=== PATIENT | male | born 1995 | race Caucasian/White ===

== ENCOUNTER 2023-08-15 13:00 | Inpatient (IN) | payer MEDICAID ==
[~2023-08-15] VITALS: Ht 172.7 cm; Wt 68.3 kg
[2023-08-15 13:48] LABS: Basophils # (auto) 0 10 ^3/uL (0-0.2); Basophils % (auto) 0.4 % (0.0-2.0); Eosinophils # (auto) 0.1 10 ^3/uL (0-0.8); Eosinophils % (auto) 1.6 % (0.0-7.0); Hematocrit 41.1 % (41.0-53.0); Hemoglobin 13.8 g/dL (13.5-17.5); Lymphocytes # (auto) 1.9 10 ^3/uL (0.4-5.4); Lymphocytes % (auto) 26.2 % (10.0-50.0); Mean Corpuscular Hemoglobin 31.5 pg (28.0-32.0); Mean Corpuscular Hgb Conc. 33.5 g/dL (32.0-36.0); Mean Corpuscular Volume 94.1 fL (80.0-100.0); Monocytes # (auto) 0.7 10 ^3/uL (0-1.3); Monocytes % (auto) 9.9 % (0.0-12.0); Neutrophils # (auto) 4.4 10 ^3/uL (1.6-8.6); Neutrophils % (auto) 61.9 % (37.0-80.0); Nucleated Red Blood Cells % 0.1 %; Red Blood Cells 4.37 10^6/uL (4.5-5.90); Red Cell Distribution Width 14.1 % (11.8-14.3); White Blood Cell 7.1 10^3/uL (4.4-10.8)
[2023-08-15 14:31] LABS: Alanine Aminotransferase 56 U/L (7-40); Alkaline Phosphatase 73 U/L (46-116); Anion Gap 6 (5-15); Aspartate Aminotransferase 47 U/L (13-40); BUN/Creatinine Ratio 19.7 (10.0-20.0); Blood Urea Nitrogen 14 mg/dL (9-23); Calcium 8.6 mg/dL (8.5-10.1); Carbon Dioxide 23 mmol/L (20-30); Chloride 111 mmol/L (98-107); Glucose 134 mg/dL (74-106); Sodium 140 mmol/L (136-145)
[2023-08-15 14:32] LABS: Bilirubin, Total 0.6 mg/dL (0.2-1.0)
[2023-08-15] MEDS: SODIUM CHLORIDE 0.9% 1,000 ML IV ONE ×2 (16:00→16:50)
[2023-08-15] MEDS: THIAMINE 100mg/ml INJ (200mg/2ml VIAL) IV ONE (16:01)
[2023-08-15 16:05] VITALS: PULSE 47; RESP 18; O2SAT 97
[2023-08-15 16:26] LABS: Blood Alcohol < 3.0 mg/dL (<10)
[2023-08-15 16:27] LABS: Creatine Kinase IFCC 854 U/L (46-171)
[2023-08-15] MEDS ORDERED: MORPHINE SULFATE INJ 2 MG/ml SYRG IV PRN (16:45)
[2023-08-15] MEDS ORDERED: NITROGLYCERIN 0.4 MG SL TAB SL PRN (16:45)
[2023-08-15] MEDS ORDERED: ACETAMINOPHEN 325 MG TAB PO PRN (16:45)
[2023-08-15 16:55] LABS: Urine Bacteria None Seen /hpf (None Seen)
[2023-08-15 17:04] LABS: Urine Blood Negative /uL (Negative); Urine Clarity Clear (Clear); Urine Color Yellow (Yellow); Urine Protein, UAD TRACE (Negative); Urine Specific Gravity 1.034 (1.001-1.035); Urine Urobilinogen Normal (Negative); Urine WBC <1 /hpf (0 - 3)
[2023-08-15 17:14] LABS: Amphetamine Screen, Urine Pos (NEGATIVE); Barbiturate Scree,Urine Neg (NEGATIVE); Benzodiazephine Screen, Urine Neg (NEGATIVE)
[2023-08-15 17:15] LABS: Cannabinoid Screen, Urine Pos (NEGATIVE); Cocaine Screen, Urine Neg (NEGATIVE); Opiate Scree,Urine Neg (NEGATIVE); Phencyclidine Screen, Urine Neg (NEGATIVE)
[2023-08-15] MEDS: SODIUM CHLORIDE 0.9% 1,000 ML IV SCH (17:30)
[2023-08-15 19:30] VITALS: RESP 16; O2SAT 97
[2023-08-15] MEDS ORDERED: LORazepam 2MG/ML-1ML VIAL IV PRN (19:45)
[2023-08-16 07:57] VITALS: PULSE 48; RESP 14; O2SAT 97
[2023-08-16] MEDS: ENOXAPARIN SOD 40 MG/0.4 ML SYRINGE SC SCH (10:42)
[2023-08-16 15:54] LABS: Basophils # (auto) 0 10 ^3/uL (0-0.2); Basophils % (auto) 0.3 % (0.0-2.0); Eosinophils # (auto) 0 10 ^3/uL (0-0.8); Eosinophils % (auto) 0.2 % (0.0-7.0); Hematocrit 44.2 % (41.0-53.0); Hemoglobin 14.8 g/dL (13.5-17.5); Lymphocytes # (auto) 1.1 10 ^3/uL (0.4-5.4); Lymphocytes % (auto) 17.7 % (10.0-50.0); Mean Corpuscular Hemoglobin 30.9 pg (28.0-32.0); Mean Corpuscular Hgb Conc. 33.5 g/dL (32.0-36.0); Mean Corpuscular Volume 92.1 fL (80.0-100.0); Monocytes # (auto) 0.2 10 ^3/uL (0-1.3); Neutrophils # (auto) 4.8 10 ^3/uL (1.6-8.6); Neutrophils % (auto) 77.8 % (37.0-80.0); Red Cell Distribution Width 14.4 % (11.8-14.3); White Blood Cell 6.2 10^3/uL (4.4-10.8)
[2023-08-16 15:58] LABS: Alanine Aminotransferase 52 U/L (7-40); Albumin 3.6 g/dL (3.2-4.8); Alkaline Phosphatase 78 U/L (46-116); Anion Gap 6 (5-15); Aspartate Aminotransferase 36 U/L (13-40); BUN/Creatinine Ratio 9.6 (10.0-20.0); Bilirubin, Total 1.1 mg/dL (0.2-1.0); Blood Urea Nitrogen 7 mg/dL (9-23); Calcium 8.4 mg/dL (8.5-10.1); Carbon Dioxide 22 mmol/L (20-30); Chloride 110 mmol/L (98-107); Glucose 132 mg/dL (74-106); Potassium 3.8 mmol/L (3.5-5.1); Sodium 138 mmol/L (136-145); Total Protein 5.7 g/dL (5.7-8.2)
[2023-08-16] MEDS: SILVER SULFADIAZINE 1 % TOPICAL CREAM 50GM TOP ONE (15:59)
[2023-08-16 19:25] VITALS: PULSE 43; RESP 14; O2SAT 97
[2023-08-17 05:55] LABS: Basophils # (auto) 0 10 ^3/uL (0-0.2); Basophils % (auto) 0.6 % (0.0-2.0); Eosinophils # (auto) 0.1 10 ^3/uL (0-0.8); Eosinophils % (auto) 1.5 % (0.0-7.0); Hematocrit 43.5 % (41.0-53.0); Hemoglobin 14.9 g/dL (13.5-17.5); Lymphocytes # (auto) 2.1 10 ^3/uL (0.4-5.4); Lymphocytes % (auto) 28.6 % (10.0-50.0); Mean Corpuscular Hemoglobin 31.4 pg (28.0-32.0); Mean Corpuscular Hgb Conc. 34.3 g/dL (32.0-36.0); Mean Corpuscular Volume 91.6 fL (80.0-100.0); Monocytes # (auto) 0.6 10 ^3/uL (0-1.3); Monocytes % (auto) 7.6 % (0.0-12.0); Neutrophils # (auto) 4.6 10 ^3/uL (1.6-8.6); Neutrophils % (auto) 61.7 % (37.0-80.0); Red Blood Cells 4.75 10^6/uL (4.5-5.90); White Blood Cell 7.4 10^3/uL (4.4-10.8)
[2023-08-17 06:15] LABS: Alanine Aminotransferase 43 U/L (7-40); Albumin 3.3 g/dL (3.2-4.8); Alkaline Phosphatase 73 U/L (46-116); Anion Gap 7 (5-15); Aspartate Aminotransferase 22 U/L (13-40); BUN/Creatinine Ratio 11.3 (10.0-20.0); Bilirubin, Total 0.5 mg/dL (0.2-1.0); Blood Urea Nitrogen 8 mg/dL (9-23); Calcium 8.4 mg/dL (8.7-10.4); Carbon Dioxide 26 mmol/L (20-30); Chloride 109 mmol/L (98-107); Glucose 80 mg/dL (74-106); Potassium 3.6 mmol/L (3.5-5.1); Sodium 142 mmol/L (136-145); Total Protein 5.4 g/dL (5.7-8.2)
[2023-08-17 09:40] VITALS: BP 109/63; PULSE 65; RESP 16; TEMP 97.2; O2SAT 98
[2023-08-17] MEDS: LACTULOSE 20Gm/30ML SOLN PO SCH (09:51)
[2023-08-17 10:25] VITALS: BP 113/71; PULSE 44; RESP 17; O2SAT 97
[2023-08-17 10:29] VITALS: PULSE 44; RESP 16; O2SAT 97
[2023-08-17 10:35] VITALS: BP 109/63; PULSE 44; RESP 17; TEMP 97.2; O2SAT 97
[2023-08-17 13:00] VITALS: BP 109/63; PULSE 45; RESP 17; TEMP 97.7; O2SAT 97
[2023-08-17 17:00] VITALS: BP 110/54; PULSE 61; RESP 17; TEMP 97.8; O2SAT 99
[2023-08-17] MEDS: LORazepam 2MG/ML-1ML VIAL IV PRN (18:24)
== END 2023-08-17 18:33 | disposition left against medical advice (07) | DRG 52 ==
LOC: ER 13:00 → EDBD 13:00 → TELE 16:37 → TELE-E-ADS 08-17 09:17
PROVIDERS: ADMIT Nurse Practitioner Family; ATTEND Nurse Practitioner Family
PROC: 4A10X4Z Monitoring of Central Nervous Electrical Activity, External Approach (ICD-10-PCS; principal; 2023-08-15)
DX: G92.8 Other toxic encephalopathy (principal); E72.4 Disorders of ornithine metabolism; T67.01XA Heatstroke and sunstroke, initial encounter; E86.0 Dehydration; F17.200 Nicotine dependence, unspecified, uncomplicated; R00.1 Bradycardia, unspecified; Z53.29 Procedure and treatment not carried out because of patient's decision for other reasons; F19.10 Other psychoactive substance abuse, uncomplicated; X58.XXXA Exposure to other specified factors, initial encounter; Y93.89 Activity, other specified; Y92.89 Other specified places as the place of occurrence of the external cause; Y99.8 Other external cause status
CPT/HCPCS: 36415; 70450; 70551; 71045; 80053; 80307; 80320; 81001; 82140; 82550; 84484; 85025; 93005; 93306; 95819; 96361; 96374; G0378

== ENCOUNTER 2023-11-05 02:19 | Inpatient (IN) | payer MEDICAID ==
[~2023-11-05] VITALS: Ht 172.7 cm; Wt 72.3 kg
[2023-11-05 02:53] LABS: Basophils # (auto) 0.1 10 ^3/uL (0-0.2); Basophils % (auto) 0.7 % (0.0-2.0); Eosinophils # (auto) 0 10 ^3/uL (0-0.8); Eosinophils % (auto) 0.1 % (0.0-7.0); Hematocrit 46.8 % (41.0-53.0); Hemoglobin 15.9 g/dL (13.5-17.5); Lymphocytes # (auto) 2.3 10 ^3/uL (0.4-5.4); Lymphocytes % (auto) 18.1 % (10.0-50.0); Monocytes # (auto) 1.9 10 ^3/uL (0-1.3); Monocytes % (auto) 14.9 % (0.0-12.0); Neutrophils # (auto) 8.5 10 ^3/uL (1.6-8.6); Neutrophils % (auto) 66.2 % (37.0-80.0); Platelet Count (auto) 226 10^3/uL (140-450); Red Blood Cells 4.97 10^6/uL (4.5-5.90); Red Cell Distribution Width 14.3 % (11.8-14.3); White Blood Cell 12.8 10^3/uL (4.4-10.8)
[2023-11-05] MEDS: SODIUM CHLORIDE 0.9% 1,000 ML IV ONE ×2 (03:00→04:30)
[2023-11-05 03:11] LABS: Alanine Aminotransferase 29 U/L (7-40); Albumin 5.2 g/dL (3.2-4.8); Alkaline Phosphatase 61 U/L (46-116); Anion Gap 12 (5-15); Aspartate Aminotransferase 71 U/L (13-40); BUN/Creatinine Ratio 19.6 (10.0-20.0); Bilirubin, Total 1.7 mg/dL (0.2-1.0); Blood Urea Nitrogen 19 mg/dL (9-23); Carbon Dioxide 24 mmol/L (20-30); Chloride 109 mmol/L (98-107); Glucose 98 mg/dL (74-106); Lipase 37 U/L (12-53); Potassium 3.6 mmol/L (3.5-5.1); Sodium 145 mmol/L (136-145)
[2023-11-05 03:38] LABS: Urine Bacteria None Seen /hpf (None Seen)
[2023-11-05 03:50] LABS: Urine Blood 1+ /uL (Negative); Urine Clarity Clear (Clear); Urine Color Yellow (Yellow); Urine Mucus FEW (None Seen); Urine Protein, UAD 2+ (Negative); Urine Urobilinogen Normal (Negative); Urine WBC 1 /hpf (0 - 3); Urine pH 5.5 (5.0-9.0)
[2023-11-05 03:56] LABS: Amphetamine Screen, Urine Pos (NEGATIVE); Barbiturate Scree,Urine Neg (NEGATIVE); Benzodiazephine Screen, Urine Neg (NEGATIVE); Cannabinoid Screen, Urine Neg (NEGATIVE); Cocaine Screen, Urine Neg (NEGATIVE); Opiate Scree,Urine Neg (NEGATIVE); Phencyclidine Screen, Urine Neg (NEGATIVE)
[2023-11-05 04:01] LABS: Blood Alcohol < 3.0 mg/dL (<10)
[2023-11-05] MEDS ORDERED: NITROGLYCERIN 0.4 MG SL TAB SL PRN (08:15)
[2023-11-05] MEDS ORDERED: ACETAMINOPHEN 325 MG TAB PO PRN (08:15)
[2023-11-05] MEDS ORDERED: MORPHINE SULFATE INJ 2 MG/ml SYRG IV PRN (08:15)
[2023-11-05] MEDS: LACTATED RINGER'S 1,000 ML IV SCH (08:45)
[2023-11-05 09:44] VITALS: BP 127/59; PULSE 72; RESP 14; TEMP 97.8; O2SAT 98
[2023-11-05] MEDS ORDERED: ENOXAPARIN SOD 40 MG/0.4 ML SYRINGE SC SCH (10:00)
== END 2023-11-05 11:07 | disposition left against medical advice (07) | DRG 812 ==
LOC: EDBD 02:19 → ER 02:19 → EDUNIT# 02:19 → TELE 08:16 → TELE-WESTW 09:47
PROVIDERS: ADMIT Nurse Practitioner Family; ATTEND Nurse Practitioner Family
DX: T43.651A Poisoning by methamphetamines accidental (unintentional), initial encounter (principal); G92.8 Other toxic encephalopathy; M62.82 Rhabdomyolysis; F10.10 Alcohol abuse, uncomplicated; F15.10 Other stimulant abuse, uncomplicated; F17.200 Nicotine dependence, unspecified, uncomplicated; R74.01 Elevation of levels of liver transaminase levels; Y90.9 Presence of alcohol in blood, level not specified; Z53.29 Procedure and treatment not carried out because of patient's decision for other reasons; Y92.89 Other specified places as the place of occurrence of the external cause
CPT/HCPCS: 36415; 70450; 80053; 80307; 80320; 81001; 82550; 83605; 83690; 84484; 85025; 93005; 96360; 96361; G0378

== ENCOUNTER 2023-11-09 20:33 | Emergency (ER) | payer MEDICAID ==
[~2023-11-09] VITALS: Ht 170.2 cm; Wt 63.6 kg
[2023-11-09] MEDS: SODIUM CHLORIDE 0.9% 1,000 ML IV ONE (22:30)
[2023-11-09] MEDS: ALBUTEROL SULF 2.5 MG/0.5ML(0.5%) NEB SOLN NEB ONE (22:35)
[2023-11-09 22:51] LABS: Basophils # (auto) 0 10 ^3/uL (0-0.2); Basophils % (auto) 0.6 % (0.0-2.0); Eosinophils # (auto) 0.1 10 ^3/uL (0-0.8); Eosinophils % (auto) 0.7 % (0.0-7.0); Hematocrit 45.6 % (41.0-53.0); Hemoglobin 15.5 g/dL (13.5-17.5); Lymphocytes # (auto) 2.6 10 ^3/uL (0.4-5.4); Lymphocytes % (auto) 28.9 % (10.0-50.0); Mean Corpuscular Hgb Conc. 34.1 g/dL (32.0-36.0); Mean Corpuscular Volume 93.9 fL (80.0-100.0); Monocytes # (auto) 0.9 10 ^3/uL (0-1.3); Monocytes % (auto) 9.9 % (0.0-12.0); Neutrophils # (auto) 5.4 10 ^3/uL (1.6-8.6); Neutrophils % (auto) 59.9 % (37.0-80.0); Nucleated Red Blood Cells % 0.1 %; Platelet Count (auto) 215 10^3/uL (140-450); Red Blood Cells 4.85 10^6/uL (4.5-5.90); Red Cell Distribution Width 14.1 % (11.8-14.3)
[2023-11-09 23:01] LABS: Chloride 106 mmol/L (98-107); Potassium 3.5 mmol/L (3.5-5.1); Sodium 141 mmol/L (136-145)
[2023-11-09 23:02] LABS: Anion Gap 13 (5-15); Carbon Dioxide 22 mmol/L (20-30)
[2023-11-09 23:03] LABS: Calcium 9.9 mg/dL (8.7-10.4)
[2023-11-09 23:07] LABS: BUN/Creatinine Ratio 14.8 (10.0-20.0); Blood Urea Nitrogen 13 mg/dL (9-23)
[2023-11-09 23:08] LABS: Glucose 78 mg/dL (74-106)
[2023-11-10 02:58] VITALS: BP 122/82; PULSE 76; RESP 16; TEMP 97.8; O2SAT 96
== END 2023-11-10 02:50 | disposition home or self-care (01) ==
LOC: EDBD 20:33 → ER 20:33
DX: B34.9 Viral infection, unspecified (principal); E86.0 Dehydration; R53.1 Weakness; F15.10 Other stimulant abuse, uncomplicated
CPT/HCPCS: 36415; 71046; 80048; 85025; 94640; 96360; 96361; 99284; J7030

== ENCOUNTER 2023-11-10 07:05 | Emergency (ER) | payer MEDICAID | END 2023-11-10 07:50 | disposition left against medical advice (07) | LOC: ER 07:05 | DX: R06.02 Shortness of breath (principal); Z53.21 Procedure and treatment not carried out due to patient leaving prior to being seen by health care provider ==

== ENCOUNTER 2023-11-10 14:11 | Emergency (ER) | payer MEDICAID ==
[~2023-11-10] VITALS: Ht 165.1 cm; Wt 68.1 kg
[2023-11-10 14:12] VITALS: BP 105/63; PULSE 76; RESP 14; O2SAT 97
== END 2023-11-10 16:59 | disposition left against medical advice (07) ==
LOC: ER 14:11 → EDBD 14:11 → ER 16:59
DX: R05.9 Cough, unspecified (principal); R06.02 Shortness of breath; Z53.21 Procedure and treatment not carried out due to patient leaving prior to being seen by health care provider

== ENCOUNTER 2023-11-25 04:35 | Emergency (ER) | payer MEDICAID ==
[~2023-11-25] VITALS: Ht 175.3 cm; Wt 79.5 kg
[2023-11-25 04:40] VITALS: BP 115/78; PULSE 58; RESP 18; O2SAT 97
== END 2023-11-25 06:07 | disposition left against medical advice (07) ==
LOC: ER 04:35 → EDBD 04:35 → ER 06:07
DX: R06.02 Shortness of breath (principal); Z53.21 Procedure and treatment not carried out due to patient leaving prior to being seen by health care provider
CPT/HCPCS: 93005

== ENCOUNTER 2023-12-14 14:25 | Inpatient (IN) | payer MEDICAID ==
[~2023-12-14] VITALS: Ht 165.1 cm; Wt 81.0 kg
[2023-12-14] MEDS: SODIUM CHLORIDE 0.9% 1,000 ML IVB ONE (15:39)
[2023-12-14 16:39] VITALS: PULSE 47; RESP 17; O2SAT 97
[2023-12-14 16:39] LABS: Basophils # (auto) 0 10 ^3/uL (0-0.2); Basophils % (auto) 0.6 % (0.0-2.0); Eosinophils # (auto) 0.1 10 ^3/uL (0-0.8); Eosinophils % (auto) 1.7 % (0.0-7.0); Hematocrit 39.9 % (41.0-53.0); Hemoglobin 13.5 g/dL (13.5-17.5); Lymphocytes # (auto) 1.7 10 ^3/uL (0.4-5.4); Lymphocytes % (auto) 30.5 % (10.0-50.0); Mean Corpuscular Hemoglobin 31.3 pg (28.0-32.0); Monocytes # (auto) 0.4 10 ^3/uL (0-1.3); Monocytes % (auto) 6.7 % (0.0-12.0); Neutrophils # (auto) 3.4 10 ^3/uL (1.6-8.6); Neutrophils % (auto) 60.5 % (37.0-80.0); Nucleated Red Blood Cells % 0.2 %; Platelet Count (auto) 227 10^3/uL (140-450); Red Blood Cells 4.33 10^6/uL (4.5-5.90); Red Cell Distribution Width 13.5 % (11.8-14.3); White Blood Cell 5.7 10^3/uL (4.4-10.8)
[2023-12-14 16:48] LABS: Chloride 109 mmol/L (98-107); Potassium 3.6 mmol/L (3.5-5.1); Sodium 144 mmol/L (136-145)
[2023-12-14 16:50] LABS: Anion Gap 6 (5-15); Calcium 8.9 mg/dL (8.7-10.4); Carbon Dioxide 29 mmol/L (20-31)
[2023-12-14 16:55] LABS: BUN/Creatinine Ratio 14.5 (10.0-20.0); Blood Alcohol < 3.0 mg/dL (<10); Blood Urea Nitrogen 11 mg/dL (9-23); Glucose 96 mg/dL (74-106)
[2023-12-14 17:46] LABS: Amphetamine Screen, Urine Pos (NEGATIVE); Barbiturate Scree,Urine Neg (NEGATIVE); Benzodiazephine Screen, Urine Neg (NEGATIVE); Cannabinoid Screen, Urine Pos (NEGATIVE); Cocaine Screen, Urine Neg (NEGATIVE); Opiate Scree,Urine Neg (NEGATIVE); Phencyclidine Screen, Urine Neg (NEGATIVE)
[2023-12-14] MEDS ORDERED: ACETAMINOPHEN 325 MG TAB PO PRN (23:00)
[2023-12-14] MEDS ORDERED: MORPHINE SULFATE INJ 2 MG/ml SYRG IV PRN (23:00)
[2023-12-14] MEDS ORDERED: NITROGLYCERIN 0.4 MG SL TAB SL PRN (23:00)
[2023-12-14] MEDS ORDERED: ONDANSETRON HCL 4 MG/2 ML VIAL IV PRN (23:00)
[2023-12-14] MEDS: SODIUM CHLORIDE 0.9% 1,000 ML IV SCH (23:17)
[2023-12-15] MEDS: DOPamine 1600MCG/ML D5W 250 ML IV SCH (02:07)
[2023-12-15 03:37] LABS: Basophils # (auto) 0 10 ^3/uL (0-0.2); Basophils % (auto) 0.6 % (0.0-2.0); Eosinophils # (auto) 0.1 10 ^3/uL (0-0.8); Hematocrit 42.3 % (41.0-53.0); Hemoglobin 14.5 g/dL (13.5-17.5); Lymphocytes # (auto) 2.6 10 ^3/uL (0.4-5.4); Lymphocytes % (auto) 35.8 % (10.0-50.0); Mean Corpuscular Hgb Conc. 34.4 g/dL (32.0-36.0); Mean Corpuscular Volume 93.2 fL (80.0-100.0); Monocytes # (auto) 0.5 10 ^3/uL (0-1.3); Monocytes % (auto) 7.4 % (0.0-12.0); Neutrophils # (auto) 3.9 10 ^3/uL (1.6-8.6); Neutrophils % (auto) 54.2 % (37.0-80.0); Nucleated Red Blood Cells % 0.2 %; Platelet Count (auto) 198 10^3/uL (140-450); Red Blood Cells 4.54 10^6/uL (4.5-5.90); Red Cell Distribution Width 13.6 % (11.8-14.3); White Blood Cell 7.2 10^3/uL (4.4-10.8)
[2023-12-15 04:01] LABS: Alanine Aminotransferase 30 U/L (7-40); Albumin 3.9 g/dL (3.2-4.8); Alkaline Phosphatase 53 U/L (46-116); Anion Gap 7 (5-15); Aspartate Aminotransferase 29 U/L (13-40); BUN/Creatinine Ratio 9.9 (10.0-20.0); Bilirubin, Total 0.4 mg/dL (0.2-1.0); Blood Urea Nitrogen 8 mg/dL (9-23); Calcium 8.8 mg/dL (8.7-10.4); Carbon Dioxide 26 mmol/L (20-31); Chloride 110 mmol/L (98-107); Glucose 97 mg/dL (74-106); Potassium 3.6 mmol/L (3.5-5.1); Sodium 143 mmol/L (136-145)
[2023-12-15] MEDS: ASCORBIC ACID 500 MG TAB PO SCH (10:00)
[2023-12-15] MEDS: ZINC SULFATE 220mg CAP or TAB PO SCH (10:00)
[2023-12-15] MEDS: MULTIPLE VITAMIN TAB PO SCH (10:00)
[2023-12-15 12:58] VITALS: PULSE 41; RESP 16; O2SAT 96
[2023-12-15] MEDS: POTASSIUM CHLORIDE 40 MEQ, LIDOCAINE 1% (LOCAL ANESTH.) 4 ML in SODIUM CHL 0.9% 250 ML IV ONE (14:15)
[2023-12-15 15:21] LABS: Magnesium 2.2 mg/dL (1.6-2.6)
[2023-12-15] MEDS: ENOXAPARIN SOD 30 MG/0.3 ML SYRINGE SC ONE (16:16)
[2023-12-15 19:30] VITALS: PULSE 42; RESP 17; O2SAT 98
[2023-12-16] VITALS (8 sets, daily range): BP systolic 106–125; BP diastolic 60–73; PULSE 42–84; RESP 14–18; TEMP 97.7–98.6; O2SAT 94–99
[2023-12-16] MEDS: ENOXAPARIN SOD 30 MG/0.3 ML SYRINGE SC SCH (09:56)
[2023-12-16] MEDS: THIAMINE 100mg/ml INJ (200mg/2ml VIAL) IV SCH (09:56)
[2023-12-17 01:00] VITALS: BP 111/71; PULSE 38; RESP 17; TEMP 97.7; O2SAT 96
[2023-12-17 05:00] VITALS: BP 115/77; PULSE 39; RESP 18; TEMP 97.8; O2SAT 96
[2023-12-17 08:00] VITALS: PULSE 51; RESP 18; O2SAT 96
[2023-12-17 08:52] VITALS: BP 113/78; PULSE 46; RESP 16; TEMP 97.3; O2SAT 97
== END 2023-12-17 12:30 | disposition left against medical advice (07) | DRG 812 ==
LOC: ER 14:25 → EDUNIT# 14:25 → EDBD 14:25 → TELE 22:50 → TELE-CENTR 12-16 04:10
PROVIDERS: ADMIT Internal Medicine; ATTEND Internal Medicine
DX: T43.651A Poisoning by methamphetamines accidental (unintentional), initial encounter (principal); G92.8 Other toxic encephalopathy; T40 Poisoning by, adverse effect of and underdosing of narcotics and psychodysleptics [hallucinogens]; T51.91XA Toxic effect of unspecified alcohol, accidental (unintentional), initial encounter; E86.0 Dehydration; Z53.29 Procedure and treatment not carried out because of patient's decision for other reasons; F10.10 Alcohol abuse, uncomplicated; Z83.3 Family history of diabetes mellitus; Z79.899 Other long term (current) drug therapy; Y90.0 Blood alcohol level of less than 20 mg/100 ml; Y92.89 Other specified places as the place of occurrence of the external cause
CPT/HCPCS: 36415; 70450; 70551; 71045; 80048; 80053; 80061; 80307; 80320; 82962; 83036; 83735; 83880; 84443; 85025; 93005; 95819; 96360; 99291; G0378; J2003

== ENCOUNTER 2023-12-29 00:16 | Emergency (ER) | payer MEDICAID ==
[~2023-12-29] VITALS: Ht 177.8 cm; Wt 180.0 kg
[2023-12-29 01:00] VITALS: TEMP 98
[2023-12-29 01:10] LABS: Basophils # (auto) 0 10 ^3/uL (0-0.2); Basophils % (auto) 0.6 % (0.0-2.0); Eosinophils # (auto) 0.1 10 ^3/uL (0-0.8); Hematocrit 42.6 % (41.0-53.0); Hemoglobin 14.5 g/dL (13.5-17.5); Lymphocytes # (auto) 2.2 10 ^3/uL (0.4-5.4); Lymphocytes % (auto) 29.3 % (10.0-50.0); Mean Corpuscular Hemoglobin 31.4 pg (28.0-32.0); Mean Corpuscular Hgb Conc. 33.9 g/dL (32.0-36.0); Mean Corpuscular Volume 92.5 fL (80.0-100.0); Monocytes # (auto) 0.9 10 ^3/uL (0-1.3); Monocytes % (auto) 12.7 % (0.0-12.0); Neutrophils # (auto) 4.1 10 ^3/uL (1.6-8.6); Neutrophils % (auto) 55.4 % (37.0-80.0); Nucleated Red Blood Cells % 0.1 %; Platelet Count (auto) 263 10^3/uL (140-450); Red Blood Cells 4.61 10^6/uL (4.5-5.90); Red Cell Distribution Width 13.6 % (11.8-14.3); White Blood Cell 7.3 10^3/uL (4.4-10.8)
[2023-12-29 01:25] LABS: Alanine Aminotransferase 25 U/L (7-40); Albumin 4.4 g/dL (3.2-4.8); Alkaline Phosphatase 65 U/L (46-116); Anion Gap 1 (5-15); Aspartate Aminotransferase 22 U/L (13-40); BUN/Creatinine Ratio 13.7 (10.0-20.0); Bilirubin, Total 0.4 mg/dL (0.2-1.0); Blood Urea Nitrogen 10 mg/dL (9-23); Calcium 9.3 mg/dL (8.7-10.4); Carbon Dioxide 31 mmol/L (20-31); Chloride 110 mmol/L (98-107); Glucose 87 mg/dL (74-106); Potassium 3.5 mmol/L (3.5-5.1); Sodium 142 mmol/L (136-145); Total Protein 6.6 g/dL (5.7-8.2)
[2023-12-29 01:42] LABS: Blood Alcohol < 3.0 mg/dL (<10)
[2023-12-29 02:27] LABS: Amphetamine Screen, Urine Pos (NEGATIVE); Barbiturate Scree,Urine Neg (NEGATIVE); Benzodiazephine Screen, Urine Neg (NEGATIVE); Cannabinoid Screen, Urine Neg (NEGATIVE); Cocaine Screen, Urine Neg (NEGATIVE); Phencyclidine Screen, Urine Neg (NEGATIVE)
[2023-12-29 02:32] LABS: Opiate Scree,Urine Neg (NEGATIVE)
[2023-12-29 03:46] VITALS: BP 107/57; PULSE 52; RESP 13; O2SAT 100
== END 2023-12-29 03:46 | disposition home or self-care (01) ==
LOC: EDBD 00:16 → ER 00:16 → EDUNIT# 00:16 → ER 03:46
DX: F15.10 Other stimulant abuse, uncomplicated (principal)
CPT/HCPCS: 36415; 80053; 80307; 80320; 85025; 93005

== ENCOUNTER 2023-12-29 08:14 | Emergency (ER) | payer MEDICAID ==
[~2023-12-29] VITALS: Ht 172.7 cm; Wt 65.0 kg
[2023-12-29 08:52] LABS: Basophils # (auto) 0 10 ^3/uL (0-0.2); Basophils % (auto) 0.8 % (0.0-2.0); Eosinophils # (auto) 0.1 10 ^3/uL (0-0.8); Eosinophils % (auto) 1.2 % (0.0-7.0); Hematocrit 42.6 % (41.0-53.0); Hemoglobin 14.5 g/dL (13.5-17.5); Lymphocytes % (auto) 19.7 % (10.0-50.0); Mean Corpuscular Hemoglobin 31.6 pg (28.0-32.0); Mean Corpuscular Hgb Conc. 34.1 g/dL (32.0-36.0); Mean Corpuscular Volume 92.6 fL (80.0-100.0); Monocytes # (auto) 0.4 10 ^3/uL (0-1.3); Monocytes % (auto) 7.6 % (0.0-12.0); Neutrophils # (auto) 3.6 10 ^3/uL (1.6-8.6); Neutrophils % (auto) 70.7 % (37.0-80.0); Nucleated Red Blood Cells % 0.1 %; Platelet Count (auto) 268 10^3/uL (140-450); Red Blood Cells 4.61 10^6/uL (4.5-5.90); Red Cell Distribution Width 13.6 % (11.8-14.3); White Blood Cell 5.1 10^3/uL (4.4-10.8)
[2023-12-29 09:03] LABS: Chloride 110 mmol/L (98-107); Sodium 144 mmol/L (136-145)
[2023-12-29 09:04] LABS: Anion Gap 6 (5-15); Calcium 9.4 mg/dL (8.7-10.4); Carbon Dioxide 28 mmol/L (20-31)
[2023-12-29 09:09] LABS: BUN/Creatinine Ratio 11.9 (10.0-20.0); Blood Alcohol < 3.0 mg/dL (<10); Blood Urea Nitrogen 10 mg/dL (9-23); Glucose 89 mg/dL (74-106)
[2023-12-29 09:12] LABS: Acetaminophen < 2.0 UG/ML (10.0-20.0); Salicylate < 3.0 mg/dL (-30)
[2023-12-30 07:51] LABS: Urine Bacteria None Seen /hpf (None Seen)
[2023-12-30 08:00] VITALS: BP 107/55; PULSE 56; RESP 14; TEMP 97.9; O2SAT 96
[2023-12-30 08:07] LABS: Urine Blood Negative /uL (Negative); Urine Clarity Clear (Clear); Urine Color Light-Orange (Yellow); Urine Mucus FEW (None Seen); Urine Protein, UAD Negative (Negative); Urine Specific Gravity 1.027 (1.001-1.035); Urine Urobilinogen Normal (Negative); Urine WBC 1 /hpf (0 - 3)
[2023-12-30 08:24] LABS: Amphetamine Screen, Urine Pos (NEGATIVE); Barbiturate Scree,Urine Neg (NEGATIVE); Benzodiazephine Screen, Urine Neg (NEGATIVE); Cocaine Screen, Urine Neg (NEGATIVE)
[2023-12-30 08:25] LABS: Opiate Scree,Urine Neg (NEGATIVE)
[2023-12-30 08:27] LABS: Cannabinoid Screen, Urine Neg (NEGATIVE); Phencyclidine Screen, Urine Neg (NEGATIVE)
== END 2023-12-29 10:55 | disposition home or self-care (01) ==
LOC: ER 08:14
DX: I10 Essential (primary) hypertension (principal)
CPT/HCPCS: 36415; 80048; 80307; 80320; 80329; 81001; 85025; 93005

== ENCOUNTER 2024-04-14 00:11 | Emergency (ER) | payer MEDICAID ==
[~2024-04-14] VITALS: Ht 172.7 cm; Wt 86.0 kg
[2024-04-14] MEDS: ASPirin 81 mg TAB PO ONE (00:45)
--- NOTE | 2024-04-14 00:56 | ED.PDOC ---
HPI Comments 28-year-old male came to ER due to chest pains. Patient denies any medical problems. States he was walking earlier today when he developed substernal chest pains, aching, 7/10 intensity, rigidity to the back, associated with shortness of breath. Patient states he felt anxious before the chest pain occurred. Patient admits to smoke cigarettes and use methamphetamines Chief Complaint: Chest Pain Time Seen by MD: 00:54 Primary Care Provider: NONE Reviewed Notes: Nurses Notes Allergies: Coded Allergies: NO KNOWN ALLERGIES (Unverified , 08/15/23) Information Source: Patient Mode of Arrival: EMS Severity: Moderate Timing: Hours Duration: Since onset Review of Systems REVIEW OF SYSTEMS: No fever, no chills, or fatigue HEENT: No sore throat, no earache, no congestion, no neck pain. Cardiac: (+) chest pain. No palpitations. Lungs: (+) shortness of breath, no cough. GI: No nausea, no vomiting, no diarrhea, no constipation, no abdominal pain : No dysuria, frequency, or urgency. No hematuria. Musculoskeletal: No joint pain , no joint swelling, no extremity edema. Skin: No rash, no itching. Neuro: No headache, no dizziness, no weakness Vital Signs Vital Signs Date Time Temp Pulse Resp B/P (MAP) Pulse Ox O2 Delivery O2 Flow Rate FiO2 04/14/24 00:22 75 04/14/24 00:11 98.6 20 96/65 (75) 97 Physical Exam General: Awake, alert and oriented. No acute distress. Skin: Skin in warm, dry and intact. Appropriate color for ethnicity. Nailbeds pink with no cyanosis. HEENT: The head is normocephalic and atraumatic. Conjunctivae are clear without exudates or hemorrhage. Sclera is non-icteric. EOM are intact. No signs of nystagmus. Eyelids are normal in appearance without swelling or lesions. Oral mucosa is pink and moist Neck: The neck is supple with normal range of motion. No JVD. Cardiac: Heart rate and rhythm are normal. No murmurs, gallops, or rubs are auscultated. Respiratory: No signs of respiratory distress. Lung sounds are clear in all lobes bilaterally without rales, ronchi, or wheezes. Abdominal: Abdomen is soft, non-tender without distention. Bowel sounds are present and normoactive in all four quadrants. Extremities: Upper and lower extremities are atraumatic in appearance without deformity or edema. Neurological: The patient is awake, alert and oriented to person, place, and time with normal speech. Speech is clear. There is no facial asymmetry. Psychiatric: Appropriate mood and affect. Good judgement and insight. No visual or auditory hallucinations. Past Medical History PAST MEDICAL HISTORY: Denies Surgical History: Denies all surgeries Family History Family History: Reviewed,noncontributory to illness Social History Smoker: Cigarettes Alcohol: Occasionally Drugs: Marijuana, Methamphetamine Lives In: Home Was a procedure done? Was a procedure done?: No CP Differential Dx Differential Diagnosis: Angina, Anxiety / Panic Attack, Hyperventilation Differential Diagnosis: Angina, Chest Wall Pain, Costochondritis, Esophageal reflux/spasm, Gastritis, Myocardial Infarction X-Ray, Labs, Meds, VS Vital Signs Date Time Temp Pulse Resp B/P (MAP) Pulse Ox O2 Delivery O2 Flow Rate FiO2 04/14/24 00:22 75 04/14/24 00:11 98.6 74 20 96/65 (75) 97 Lab Test 04/14/24 03:36 04/14/24 01:44 04/14/24 00:47 Range/Units Troponin I High Sensitivity < 3 L < 3 L < 3 L </=54 ng/L White Blood Count 5.7 4.4-10.8 10^3/uL Red Blood Count 5.20 4.5-5.90 10^6/uL Hemoglobin 16.2 13.5-17.5 g/dL Hematocrit 47.1 41.0-53.0 % Mean Corpuscular Volume 90.6 80.0-100.0 fL Mean Corpuscular Hemoglobin 31.2 28.0-32.0 pg Mean Corpuscular Hemoglobin Concent 34.5 32.0-36.0 g/dL Red Cell Distribution Width 14.0 11.8-14.3 % Platelet Count 275 140-450 10^3/uL Mean Platelet Volume 8.6 6.9-10.8 fL Neutrophils (%) (Auto) 49.1 37.0-80.0 % Lymphocytes (%) (Auto) 35.7 10.0-50.0 % Monocytes (%) (Auto) 9.9 0.0-12.0 % Eosinophils (%) (Auto) 4.7 0.0-7.0 % Basophils (%) (Auto) 0.6 0.0-2.0 % Neutrophils # (Auto) 2.8 1.6-8.6 10 ^3/uL Lymphocytes # (Auto) 2.0 0.4-5.4 10 ^3/uL Monocytes # (Auto) 0.6 0-1.3 10 ^3/uL Eosinophils # (Auto) 0.3 0-0.8 10 ^3/uL Basophils # (Auto) 0 0-0.2 10 ^3/uL Nucleated Red Blood Cells 0.1 % Sodium Level 141 136-145 mmol/L Potassium Level 4.4 3.5-5.1 mmol/L Chloride Level 104 98-107 mmol/L Carbon Dioxide Level 30 20-31 mmol/L Anion Gap 7 5-15 Blood Urea Nitrogen 10 9-23 mg/dL Creatinine 0.86 0.700-1.30 mg/dL Glomerular Filtration Rate Calc 122 >90 mL/min BUN/Creatinine Ratio 11.6 10.0-20.0 Serum Glucose 96 74-106 mg/dL Calcium Level 10.2 8.7-10.4 mg/dL Total Bilirubin 0.4 0.2-1.0 mg/dL Aspartate Amino Transferase (AST) 16 13-40 U/L Alanine Aminotransferase (ALT) 21 7-40 U/L Alkaline Phosphatase 62 46-116 U/L B-Type Natriuretic Peptide 1.63 0-100 pg/mL Total Protein 7.2 5.7-8.2 g/dL Albumin 5.0 H 3.2-4.8 g/dL CHEST RADIOGRAPH Indication: cp Technique: Single frontal view of the chest was obtained COMPARISON: XY CHEST PORTABLE on DOS: 12/15/23, XY CHEST PORTABLE on DOS: 08/15/23 FINDINGS: Lines and Tubes: None Lungs: Clear. Pleura: No effusion. No pneumothorax. Cardiomediastinal contours: Unremarkable Bones: Unremarkable IMPRESSION: 1. No acute disease. Time of 1ST Reevaluation: 00:52 Reevaluation 1ST: Unchanged Patient Education/Counseling: Diagnosis, Treatment Family Education/Counseling: No Family Present Departure 1 Departure Time of Disposition: 04:22 Impression: Primary Impression: Chest pain Disposition: 01 HOME / SELF CARE / HOMELESS Condition: Stable Additional Instructions: ED DISCHARGE INSTRUCTIONS Instructions: Please read all instructions provided in this packet carefully. Although you have been discharged from the Emergency Department, this does not mean that you have a "clean bill of health". No definitive diagnosis for your symptoms has been made today. It is possible that you are in the process of developing a serious illness. This is why you must return to the ED without fail if any new or worsening symptoms (especially if your symptoms include chest pain, trouble breathing, abdominal pain, fever, headache, confusion, trouble seeing, or trouble walking) It is also very important that you see a primary care doctor within the next 3-5 days to follow up. If you are unable to get an appointment, return to the ED for re-evaluation. CHEST PAIN EDUCATION There are many things that can cause chest pain. Some are not serious and will get better on their own in a few days. But some kinds of chest pain need more testing and treatment. Your doctor may have recommended a follow-up visit in the next few days. If you are not getting better, you may need more tests or treatment. Even though your doctor has released you, you still need to watch for any problems. The doctor carefully checked you, but sometimes problems can develop later. If you have new symptoms or if your symptoms do not get better, get medical care right away. If you have worse or different chest pain or pressure that lasts more than 5 minutes or you passed out (lost consciousness), call 911 or seek other emergency help right away. A medical visit is only one step in your treatment. Even if you feel better, you still need to do what your doctor recommends, such as going to all suggested follow-up appointments and taking medicines exactly as directed. This will help you recover and help prevent future problems. How can you care for yourself at home? Rest until you feel better. Take your medicine exactly as prescribed. Call your doctor if you think you are having a problem with your medicine. Do not drive after taking a prescription pain medicine. When should you call for help? Call 911 if: You passed out (lost consciousness). You have severe difficulty breathing. You have symptoms of a heart attack. These may include: Chest pain or pressure, or a strange feeling in your chest. Sweating. Shortness of breath. Nausea or vomiting. Pain, pressure, or a strange feeling in your back, neck, jaw, or upper belly or in one or both shoulders or arms. Lightheadedness or sudden weakness. A fast or irregular heartbeat. After you call 911, the customer service operator may tell you to chew 1 adult-strength or 2 to 4 low-dose aspirin. Wait for an ambulance. Do not try to drive yourself. Call your doctor now or seek immediate medical care if: You have any trouble breathing. You have new or different chest pain. You are dizzy or lightheaded, or you feel like you may faint. Watch closely for changes in your health, and be sure to contact your doctor if you do not get better as expected. Current as of: October 06, 2023 Author: Whisher Staff? Comments [age] yo male with chest pain. EKG negative for signs of ischemia. High sensitivity troponin negative x3. CXR shows no acute process. Presentation not suggestive of acute coronary syndrome, pulmonary embolism or aortic dissection. Patient improved at time of discharge. No hypoxia, respiratory distress or dyspnea at discharge. Patient able to ambulate without difficulty. - I reviewed the following notes from the pt's past medical encounters: N/A The following tests were ordered, and results were reviewed by me: (See di agnostic results section) The following test were independently interpreted by me: EKG Additional information was gathered from interviewing the following independent historians: (N/A) I reviewed and agreed with the following test results read by other providers: Chest x-ray I discussed treatments and results with medical personnel and: N/A Decision regarding hospitalization or escalation of hospital level of care: Risks and benefits of admission for further treatment of patient's condition was considered however due to patient's stable condition patient will be discharged to follow up closely or return to care for worsening of condition or inability to follow up. Critical Care Note Critical Care Time?: Yes (35 min-critical care time only) Critical care comment: Active chest pains Stability Stability form required: No Heart Score Heart Score: Heart Score Response (Comments) Value History Slightly Suspicious 0 EKG Normal 0 Age <45 0 Risk Factors No known risk factors 0 Troponin Normal limit 0 Total 0 I personally scribed for CHEO HERNANDES MD ([email or web address]) on 04/14/24 at 00:55. Electronically submitted by Mat Hoyt ([email or web address]). I personally scribed for CHEO HERNANDES MD ([email or web address]) on 04/14/24 at 01:01. Electronically submitted by Mat Hoyt ([email or web address]). CHEO HERNANDES MD Apr 14, 2024 00:55
--- NOTE | 2024-04-14 00:59 | DVH ---
CHEST RADIOGRAPH Indication: cp Technique: Single frontal view of the chest was obtained COMPARISON: XY CHEST PORTABLE on DOS: 12/15/23, XY CHEST PORTABLE on DOS: 08/15/23 FINDINGS: Lines and Tubes: None Lungs: Clear. Pleura: No effusion. No pneumothorax. Cardiomediastinal contours: Unremarkable Bones: Unremarkable IMPRESSION: 1. No acute disease.
[2024-04-14 01:06] LABS: Basophils # (auto) 0 10 ^3/uL (0-0.2); Basophils % (auto) 0.6 % (0.0-2.0); Eosinophils # (auto) 0.3 10 ^3/uL (0-0.8); Eosinophils % (auto) 4.7 % (0.0-7.0); Hematocrit 47.1 % (41.0-53.0); Hemoglobin 16.2 g/dL (13.5-17.5); Lymphocytes % (auto) 35.7 % (10.0-50.0); Mean Corpuscular Hemoglobin 31.2 pg (28.0-32.0); Mean Corpuscular Hgb Conc. 34.5 g/dL (32.0-36.0); Mean Corpuscular Volume 90.6 fL (80.0-100.0); Monocytes # (auto) 0.6 10 ^3/uL (0-1.3); Monocytes % (auto) 9.9 % (0.0-12.0); Neutrophils # (auto) 2.8 10 ^3/uL (1.6-8.6); Neutrophils % (auto) 49.1 % (37.0-80.0); Nucleated Red Blood Cells % 0.1 %; Platelet Count (auto) 275 10^3/uL (140-450); White Blood Cell 5.7 10^3/uL (4.4-10.8)
[2024-04-14 01:14] LABS: Alanine Aminotransferase 21 U/L (7-40); Alkaline Phosphatase 62 U/L (46-116); Anion Gap 7 (5-15); Aspartate Aminotransferase 16 U/L (13-40); BUN/Creatinine Ratio 11.6 (10.0-20.0); Bilirubin, Total 0.4 mg/dL (0.2-1.0); Blood Urea Nitrogen 10 mg/dL (9-23); Calcium 10.2 mg/dL (8.7-10.4); Carbon Dioxide 30 mmol/L (20-31); Chloride 104 mmol/L (98-107); Glucose 96 mg/dL (74-106); Potassium 4.4 mmol/L (3.5-5.1); Sodium 141 mmol/L (136-145); Total Protein 7.2 g/dL (5.7-8.2)
[2024-04-14 06:54] VITALS: BP 105/65; TEMP 98.1
[2024-04-14 08:22] VITALS: PULSE 96; RESP 16; O2SAT 98
--- NOTE | 2024-04-14 08:25 | ECG ---
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
== END 2024-04-14 08:53 | disposition home or self-care (01) ==
LOC: EDBD 00:11 → ER 00:11
DX: R07.89 Other chest pain (principal); F17.210 Nicotine dependence, cigarettes, uncomplicated; R06.02 Shortness of breath
CPT/HCPCS: 36415; 71045; 80053; 83880; 84484; 85025; 93005

== ENCOUNTER 2024-04-19 01:19 | Emergency (ER) | payer MEDICAID ==
[~2024-04-19] VITALS: Ht 170.2 cm; Wt 63.6 kg
--- NOTE | 2024-04-19 02:12 | ED.PDOC ---
Psychiatric HPI Comments 28 YEAR OLD MALE PRESENTS TO ER FOR MEDICAL CLEARANCE. PATIENT PRESENTS TO ER VIA EMS, ALERT AND ORIENTED X4, IN NO DISTRESS, WITH STEADY GAIT, REPORTING THAT HE SMOKED METH AT 3PM PRIOR TO ER AND PRESENTS TO ER STATING "I JUST WANTED TO SOBER UP FROM SMOKING METH EARLIER". DENIES ANY PAIN. DENIES USE OF MEDICATIONS AND DENIES ANY CURRENT SYMPTOMS. DENIES FEVER, SHORTNESS OF BREATH, CHEST PAIN, N/V, NUMBNESS/TINGLING, PALPITATIONS, HALLUCINATIONS, CONFUSION, DIZZINESS OR ANY FURTHER SYMPTOMS/COMPLAINTS Chief Complaint: Anxiety Time Seen by MD: 01:39 Primary Care Provider: UNKNOWN Reviewed Notes: Nurses Notes, Medications, Allergies Information Source: Patient Mode of Arrival: EMS Past Medical History PAST MEDICAL HISTORY: Denies Surgical History: Denies all surgeries Family History Family History: Unknown Social History Smoker: Cigarettes Alcohol: Occasionally Drugs: Marijuana, Methamphetamine Lives In: Home Constitutional: reports: others ( STATED IN HPI) EENTM: denies: blurred vision, double vision, ear bleeding, ear discharge, ear drainage, ear pain, ear ringing, eye pain, eye redness, hearing loss, mouth pain, mouth swelling, nasal discharge, nose bleeding, nose congestion, nose pain, photophobia, tearing, throat pain, throat swelling, voice changes, others Respiratory: denies: cough, hemoptysis, orthopnea, SOB at rest, shortness of breath, SOB with excertion, stridor, wheezing, others Cardiovascular: denies: chest pain, dizzy spells, diaphoresis, Dyspnea on exertion, edema, irregular heart beat, left arm pain, lightheadedness, palpitations, PND, syncope, others Gastrointestinal: denies: abdomen distended, abdominal pain, blood streaked bowels, constipated, diarrhea, dysphagia, difficulty swallowing, hematemesis, melena, nausea, poor appetite, poor fluid intake, rectal bleeding, rectal pain, vomiting, others Genitourinary: denies: burning, dysuria, flank pain, frequency, hematuria, incontinence, penile discharge, penile sore, pain, testicle pain, testicle swelling, urgency, others Neurological: denies: dizziness, fainting, headache, left sided numbness, left sided weakness, numbness, paresthesia, pre-existing deficit, right sided numbness, right sided weakness, seizure, speech problems, tingling, tremors, weakness, others Musculoskeletal: denies: back pain, gout, joint pain, joint swelling, muscle pain, muscle stiffness, neck pain, others Integumetry: denies: bruises, change in color, change in hair/nails, dryness, laceration, lesions, lumps, rash, wounds, others Allergic/Immunocompromised: denies: Difficulty Healing, Frequent Infections, Hives, Itching, others Hematologic/Lymphatic: denies: anemia, blood clots, easy bleeding, easy bruising, swollen glands, others Endocrine: denies: excessive hunger, excessive sweating, excessive thirst, excessive urination, flushing, intolerance to cold, intolerance to heat, unexplained weight gain, unexplained weight loss, others Psychiatric: denies: anxiety, bipolar disorder, depression, hopeless, panic disorder, schizophrenia, sleepless, suicidal, others Physical Exam General Appearance: No Apparent Distress HEENT: Normal ENT Inspection, PERRL/EOMI, Pharynx Normal, TMs Normal Neck: Full Range of Motion, Non-Tender, Normal Respiratory: Chest Non-Tender, Lungs Clear, No Accessory Muscle Use, No Respiratory Distress, Normal Breath Sounds Cardiovascular: No Murmur, No Gallop, Regular Rate/Rhythm Breast Exam: Deferred Gastrointestinal: NOT DONE Genitalia: Deferred Pelvic: Deferred Rectal: Deferred Extremities: Normal capillary refill, Normal range of motion Neurologic: Alert, game manager II-XII nml as Tested, No Motor Deficits, Normal Affect, Normal Mood, No Sensory Deficits Cerebellar Function: Normal Reflexes: Normal Skin: Dry, Normal Color, Warm Lymphatic: No Adenopathy Was a procedure done? Was a procedure done?: No Sedation Sedation?: No Psych Differential Dx Intoxication Differential Dx: Hallucinations, Dehydration, Drug-Induced Psychosis, Other ([place]) X-Ray, Labs, Meds, VS Vital Signs Date Time Temp Pulse Resp B/P (MAP) Pulse Ox O2 Delivery O2 Flow Rate FiO2 04/19/24 01:26 97.6 70 16 141/82 (101) 98 PATIENT ASYMPTOMATIC PRIOR TO DISCHARGE ADVISED TO DRINK PLENTY OF FLUIDS METHAMPHETAMINE/CANNABIS/SMOKING CESSATION DISCUSSED AND ADVISED ADVISED TO FOLLOW UP WITH PCP IN 1-2 DAYS PATIENT ALERT AND ORIENTED X4 PRIOR TO DISCHARGE. PATIENT VERBALIZED UNDERSTANDING AND AGREEABLE WITH CURRENT PLAN OF CARE ADVISED TO RETURN TO ER IMMEDIATELY IF SYMPTOMS WORSEN Time of 1ST Reevaluation: 01:54 Reevaluation 1ST: N/A Patient Education/Counseling: Diagnosis, Treatment, Prognosis, Need For Follow Up Family Education/Counseling: No Family Present Departure 1 Departure Time of Disposition: 02:12 Impression: Primary Impression: Polysubstance abuse Disposition: 01 HOME / SELF CARE / HOMELESS Condition: Stable Discharged With: Friend Critical Care Note Critical Care Time?: No Stability Stability form required: No Heart Score Heart Score: Heart Score Response (Comments) Value History N/A 0 EKG N/A 0 Age N/A 0 Risk Factors N/A 0 Troponin N/A 0 Total 0 DAVID HAAS Apr 19, 2024 02:12
[2024-04-19 02:46] VITALS: BP 141/82; PULSE 70; RESP 16; TEMP 97.6; O2SAT 98
[2024-04-20] MEDS ORDERED: IBUP-1456 PO (04:03)
== END 2024-04-19 02:47 | disposition home or self-care (01) ==
LOC: ER 01:19 → EDBD 01:19 → ER 02:47
DX: F12.10 Cannabis abuse, uncomplicated (principal); F15.10 Other stimulant abuse, uncomplicated; F19.10 Other psychoactive substance abuse, uncomplicated; F17.210 Nicotine dependence, cigarettes, uncomplicated

== ENCOUNTER 2024-04-20 03:35 | Emergency (ER) | payer MEDICAID ==
[~2024-04-20] VITALS: Ht 172.7 cm; Wt 85.9 kg
[2024-04-20] MEDS ORDERED: IBUP-1456 PO (04:03)
--- NOTE | 2024-04-20 04:04 | ED.PDOC ---
Back pain HPI HPI Comments 28 year old male presents to ER with complaints of back pain x 1 day. Patient reports he started experiencing left lower lumbar back pain today while he was "walking outside". Denies any trauma/falls/injury. He rates his current pain a 10/10 to left lower lumbar region without radiation. Denies use of medications for current symptoms. Patient presents to ER ambulatory on arrival, with steady gait, in no distress. Denies fever, body aches, night sweats, n/v, numbness/tingling, shortness of breath, chest pain, abdominal/pelvic pain, changes in urination/bm or any further symptoms/complaints Chief Complaint: Back Pain Time Seen by MD: 03:44 Primary Care Provider: UNKNOWN Reviewed Notes: Nurses Notes, Medications, Allergies Allergies: Coded Allergies: NO KNOWN ALLERGIES (Unverified , 08/15/23) Home Meds Active Scripts Ibuprofen (Ibuprofen) 800 Mg Tab, 1 TAB PO TID PRN, #30 TAB 0 Refills Prov:DAVID HAAS 04/20/24 Information Source: Patient Mode of Arrival: Ambulatory Past Medical History PAST MEDICAL HISTORY: Denies Surgical History: Denies all surgeries Family History Family History: Unknown Social History Smoker: Cigarettes, Less Than 1 Pack/Day Alcohol: Occasionally Drugs: Marijuana, Methamphetamine Lives In: Home Constitutional: denies: chills, diaphoresis, fatigue, fever, malaise, sweats, weakness, others EENTM: denies: blurred vision, double vision, ear bleeding, ear discharge, ear drainage, ear pain, ear ringing, eye pain, eye redness, hearing loss, mouth pain, mouth swelling, nasal discharge, nose bleeding, nose congestion, nose pain, photophobia, tearing, throat pain, throat swelling, voice changes, others Respiratory: denies: cough, hemoptysis, orthopnea, SOB at rest, shortness of breath, SOB with excertion, stridor, wheezing, others Cardiovascular: denies: chest pain, dizzy spells, diaphoresis, Dyspnea on exertion, edema, irregular heart beat, left arm pain, lightheadedness, palpitations, PND, syncope, others Gastrointestinal: denies: abdomen distended, abdominal pain, blood streaked bowels, constipated, diarrhea, dysphagia, difficulty swallowing, hematemesis, melena, nausea, poor appetite, poor fluid intake, rectal bleeding, rectal pain, vomiting, others Genitourinary: denies: burning, dysuria, flank pain, frequency, hematuria, incontinence, penile discharge, penile sore, pain, testicle pain, testicle swelling, urgency, others Neurological: denies: dizziness, fainting, headache, left sided numbness, left sided weakness, numbness, paresthesia, pre-existing deficit, right sided numbness, right sided weakness, seizure, speech problems, tingling, tremors, w eakness, others Musculoskeletal: reports: others (As stated in HPI) Integumetry: denies: bruises, change in color, change in hair/nails, dryness, laceration, lesions, lumps, rash, wounds, others Allergic/Immunocompromised: denies: Difficulty Healing, Frequent Infections, Hives, Itching, others Hematologic/Lymphatic: denies: anemia, blood clots, easy bleeding, easy bruising, swollen glands, others Endocrine: denies: excessive hunger, excessive sweating, excessive thirst, excessive urination, flushing, intolerance to cold, intolerance to heat, unexplained weight gain, unexplained weight loss, others Psychiatric: denies: anxiety, bipolar disorder, depression, hopeless, panic disorder, schizophrenia, sleepless, suicidal, others Physical Exam General Appearance: No Apparent Distress HEENT: Normal ENT Inspection, PERRL/EOMI, Pharynx Normal, TMs Normal Neck: Full Range of Motion, Non-Tender, Normal Respiratory: Chest Non-Tender, Lungs Clear, No Accessory Muscle Use, No Respiratory Distress, Normal Breath Sounds Cardiovascular: No Murmur, No Gallop, Regular Rate/Rhythm Breast Exam: Deferred Gastrointestinal: Non Tender, No Pulsatile Mass, Soft Genitalia: Deferred Pelvic: Deferred Rectal: Deferred Extremities: Normal capillary refill, Normal range of motion Musculoskeletal : Extremity Location: Back (Slight TTP to left lower lumbar paraspinals noted. No skin changes noted. Gait intact without abnormality ) Neurologic: Alert, logistics planner II-XII nml as Tested, No Motor Deficits, Normal Affect, Normal Mood, No Sensory Deficits Cerebellar Function: Normal Reflexes: Normal Skin: Dry, Normal Color, Warm Peripheral Pulses: 2+ femoral (R), 2+ femoral (L), 2+ dorsalis pedis (R), 2+ dorsalis pedis (L), 2+ Radial (R), 2+ Radial (L), 2+ Brachial (R), 2+ Brachial (L) Lymphatic: No Adenopathy Was a procedure done? Was a procedure done?: No Sedation Sedation?: No Back Pain Differential Dx Differential Diagnosis: AAA, Fracture, Urinary Tract Infection X-Ray, Labs, Meds, VS Vital Signs Date Time Temp Pulse Resp B/P (MAP) Pulse Ox O2 Delivery O2 Flow Rate FiO2 04/20/24 03:44 97.8 61 16 107/53 (71) 100 Patient neurovascularly intact and in no distress prior to discharge Previous chart visit reviewed methamphetamine/cannabis/smoking cessation discussed and advised Advised on rest/no strenuous activity Advised to f/u with PCP in 1-2 days Patient verbalized understanding and agreeable with current plan of care Advised to return to ER immediately if symptoms worsen Time of 1ST Reevaluation: 03:44 Reevaluation 1ST: N/A Patient Education/Counseling: Diagnosis, Treatment, Prognosis, Need For Follow Up Family Education/Counseling: No Family Present Departure 1 Departure Time of Disposition: 04:02 Impression: Primary Impression: Lumbar strain Qualified Codes: S39.012A - Strain of muscle, fascia and tendon of lower back, initial encounter Additional Impression: Polysubstance abuse Disposition: 01 HOME / SELF CARE / HOMELESS Condition: Stable e-Prescriptions Ibuprofen (Ibuprofen) 800 Mg Tab 1 TAB PO TID PRN, #30 TAB 0 Refills Prov: DAVID HAAS 04/20/24 Discharged With: Self Critical Care Note Critical Care Time?: No Stability Stability form required: No Heart Score Heart Score: Heart Score Response (Comments) Value History N/A 0 EKG N/A 0 Age N/A 0 Risk Factors N/A 0 Troponin N/A 0 Total 0 DAVID HAAS Apr 20, 2024 04:03
[2024-04-20 04:09] VITALS: BP 107/53; PULSE 61; RESP 16; TEMP 97.8; O2SAT 100
== END 2024-04-20 04:11 | disposition home or self-care (01) ==
LOC: ER 03:35
DX: S39.012A Strain of muscle, fascia and tendon of lower back, initial encounter (principal); F19.10 Other psychoactive substance abuse, uncomplicated; F17.210 Nicotine dependence, cigarettes, uncomplicated; X58.XXXA Exposure to other specified factors, initial encounter; Y93.01 Activity, walking, marching and hiking; Y92.89 Other specified places as the place of occurrence of the external cause; Y99.8 Other external cause status

== ENCOUNTER 2024-04-23 15:22 | Emergency (ER) | payer MEDICAID, OTHER ==
[~2024-04-23] VITALS: Ht 177.8 cm; Wt 86.2 kg
[~2024-04-23 15:22] MED LIST: IBUP-1456 PO
[2024-04-23 15:27] VITALS: BP 107/42; RESP 18; O2SAT 95
[2024-04-23 16:06] VITALS: PULSE 87
--- NOTE | 2024-04-23 16:06 | ED.PDOC ---
History of Present Illness HPI Comments 28M presents top the ER w/ no prior Hx associated to the c/c of SOB x30 minutes. Pt states on having SOB but HR and lungs are clear, seems comfortable and states that he does not want any medications. Denies chills, fever, N/V/D, CP or other associated symptom's, modifiers, or recent injuries or sick contact at this time. Chief Complaint: Anxiety Time Seen by MD: 15:50 Primary Care Provider: NONE Reviewed Notes: Nurses Notes, Medications, Allergies Allergies: Coded Allergies: NO KNOWN ALLERGIES (Unverified , 08/15/23) Home Meds Active Scripts Ibuprofen (Ibuprofen) 800 Mg Tab, 1 TAB PO TID PRN, #30 TAB 0 Refills Prov:DAVID HAAS 04/20/24 Information Source: Patient Mode of Arrival: EMS Severity: Moderate Timing: Minutes Duration: Since onset, Minutes Prehospital treatment: None Past Medical History PAST MEDICAL HISTORY: Denies Surgical History: Denies all surgeries Family History Family History: Reviewed,noncontributory to illness, Unknown Social History Smoker: Unknown Alcohol: Unknown Drugs: Unknown Lives In: Home Constitutional: denies: chills, diaphoresis, fatigue, fever, malaise, sweats, weakness, others EENTM: denies: blurred vision, double vision, ear bleeding, ear discharge, ear drainage, ear pain, ear ringing, eye pain, eye redness, hearing loss, mouth pain, mouth swelling, nasal discharge, nose bleeding, nose congestion, nose pain, photophobia, tearing, throat pain, throat swelling, voice changes, others Respiratory: reports: shortness of breath; denies: cough, hemoptysis, orthopnea, SOB at rest, SOB with excertion, stridor, wheezing, others Cardiovascular: denies: chest pain, dizzy spells, diaphoresis, Dyspnea on ex ertion, edema, irregular heart beat, left arm pain, lightheadedness, palpitations, PND, syncope, others Gastrointestinal: denies: abdomen distended, abdominal pain, blood streaked bowels, constipated, diarrhea, dysphagia, difficulty swallowing, hematemesis, melena, nausea, poor appetite, poor fluid intake, rectal bleeding, rectal pain, vomiting, others Genitourinary: denies: burning, dysuria, flank pain, frequency, hematuria, incontinence, penile discharge, penile sore, pain, testicle pain, testicle swelling, urgency, others Neurological: denies: dizziness, fainting, headache, left sided numbness, left sided weakness, numbness, paresthesia, pre-existing deficit, right sided numbness, right sided weakness, seizure, speech problems, tingling, tremors, weakness, others Musculoskeletal: denies: back pain, gout, joint pain, joint swelling, muscle pain, muscle stiffness, neck pain, others Integumetry: denies: bruises, change in color, change in hair/nails, dryness, laceration, lesions, lumps, rash, wounds, others Allergic/Immunocompromised: denies: Difficulty Healing, Frequent Infections, Hives, Itching, others Hematologic/Lymphatic: denies: anemia, blood clots, easy bleeding, easy bruising, swollen glands, others Endocrine: denies: excessive hunger, excessive sweating, excessive thirst, excessive urination, flushing, intolerance to cold, intolerance to heat, unexplained weight gain, unexplained weight loss, others Psychiatric: denies: anxiety, bipolar disorder, depression, hopeless, panic disorder, schizophrenia, sleepless, suicidal, others All Other Systems: Reviewed and Negative Physical Exam General Appearance: No Apparent Distress, Normal HEENT: Normal ENT Inspection, Pharynx Normal, TMs Normal Neck: Full Range of Motion, Non-Tender, Normal, Normal Inspection Respiratory: Chest Non-Tender, Lungs Clear, No Accessory Muscle Use, No Respiratory Distress, Normal Breath Sounds Cardiovascular: No Edema, No JVD, No Murmur, No Gallop, Normal Peripheral Pulses, Regular Rate/Rhythm Breast Exam: Deferred Gastrointestinal: No Organomegaly, Non Tender, No Pulsatile Mass, Normal Bowel Sounds, Soft Genitalia: Deferred Pelvic: Deferred Rectal: Deferred Extremities: No calf tenderness, Normal capillary refill, Normal inspection, Normal range of motion, Non-tender, No pedal edema Musculoskeletal : Apperance: Normal Neurologic: Alert, tool straightener II-XII nml as Tested, No Motor Deficits, Normal Affect, Normal Mood, No Sensory Deficits Cerebellar Function: Normal Reflexes: Normal Skin: Dry, Normal Color, Warm Lymphatic: No Adenopathy Was a procedure done? Was a procedure done?: No EKG EKG : Pulse Rate (adult): 87 [place]: Normal Cardiac Rhythm: NSR Block: None Hypertrophy: None ST: Normal Comments Diffuse flat T waves Differential Dx Considerations may include: anxiety, pneumonia, acs, chf, arrhythmia, viral syndrome, asthma X-Ray, Labs, Meds, VS Vital Signs Date Time Temp Pulse Resp B/P (MAP) Pulse Ox O2 Delivery O2 Flow Rate FiO2 04/23/24 16:06 87 04/23/24 15:44 87 04/23/24 15:27 98.3 81 18 107/42 (63) 95 Lab Test 04/23/24 17:35 04/23/24 16:01 Range/Units Troponin I High Sensitivity < 3 L < 3 L </=54 ng/L Time of 1ST Reevaluation: 16:20 Reevaluation 1ST: Unchanged Time of 2ND Reevaluation: 19:06 Reevaluation 2ND: Improved Patient Education/Counseling: Diagnosis, Treatment, Prognosis, Need For Follow Up Family Education/Counseling: No Family Present Additional Information I reviewed the following notes from patient's past medical encounters:04/20/24 The following tests were ordered, and results were reviewed by me: XY and EKG I reviewed and agreed with the following test results read by other providers: XY I discussed treatment and results with medical personnel pt is feeling improved. cardiac workup and cxr are unremarkable. pt is stable to follow up with his PCP Departure 1 Departure Time of Disposition: 19:07 Impression: Primary Impression: Dyspnea Additional Impression: Anxiety Disposition: 01 HOME / SELF CARE / HOMELESS Condition: Good Discharged With: Self Critical Care Note Critical Care Time?: No Stability Stability form required: No I personally scribed for ABI CAO MD ([email or web address]) on 04/23/24 at 16:06. Electronically submitted by Erik Mendez ([email or web address]). ABI CAO MD Apr 23, 2024 16:06
--- NOTE | 2024-04-23 16:27 | DVH ---
CHEST RADIOGRAPH Indication: sob Technique: Single frontal view of the chest was obtained Comparison: XY CHEST XRAY 1 VIEW on DOS: 04/14/24, XY CHEST PORTABLE on DOS: 12/15/23, XY CHEST PORTABLE on DOS: 08/15/23 FINDINGS: Lines and Tubes: None Lungs: No focal consolidation. Pleura: No effusion. No pneumothorax. Cardiomediastinal contours: Unremarkable Bones: No acute osseous abnormality. IMPRESSION: No acute cardiopulmonary disease.
--- NOTE | 2024-04-24 08:17 | ECG ---
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
== END 2024-04-23 20:58 | disposition home or self-care (01) ==
LOC: ER 15:22 → EDBD 15:22 → ER 20:56
DX: R06.00 Dyspnea, unspecified (principal); F41.9 Anxiety disorder, unspecified; F17.200 Nicotine dependence, unspecified, uncomplicated
CPT/HCPCS: 36415; 71045; 84484; 93005

== ENCOUNTER 2024-04-29 09:05 | Emergency (ER) | payer MEDICAID ==
[~2024-04-29] VITALS: Ht 172.7 cm; Wt 73.0 kg
[2024-04-29 09:13] VITALS: BP 136/82; PULSE 84; RESP 16; O2SAT 98
--- NOTE | 2024-05-01 12:30 | ECG ---
[facility] Test Date: 2024-04-29 Test Time: 09:09:23 Pat Name: COLLIN RODRIGUEZ Department: ER Room: Gender: M Nip Wrapper: KENNY : 1995 Requested By: EMERGENCY EMERGENCY Order Number: [id number] Reading MD: Measurements Intervals [place] Rate: 87 P: -1 FL: 149 QRS: 49 QRSD: 88 T: 31 QT: 330 QTc: 397 Interpretive Statements Sinus rhythm Please click the below link to view image of tracing.
== END 2024-04-29 09:44 | disposition left against medical advice (07) ==
LOC: ER 09:05 → EDBD 09:05 → ER 09:44
DX: R07.89 Other chest pain (principal); Z53.21 Procedure and treatment not carried out due to patient leaving prior to being seen by health care provider
CPT/HCPCS: 93005

== ENCOUNTER 2024-06-01 14:40 | Inpatient (IN) | payer MEDICAID ==
[~2024-06-01] VITALS: Ht 175.3 cm; Wt 94.1 kg
--- NOTE | 2024-06-01 15:07 | ED.PDOC ---
Altered Mental Status HPI Comments 28 y/o M, KELLIE presents to the ED for CC of ALOC. 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 EMS states, all VVS and BS read at 79 on glucometer in route to ED. No other symptoms or modifiers obtainable at this time due to patient being A&Ox0. Chief Complaint: ALOC Time Seen by MD: 14:50 Primary Care Provider: NONE Reviewed Notes: Nurses Notes, Medications, Allergies Allergies: Coded Allergies: NO KNOWN ALLERGIES (Unverified , 08/15/23) Home Meds Active Scripts Ibuprofen (Ibuprofen) 800 Mg Tab, 1 TAB PO TID PRN, #30 TAB 0 Refills Prov:DAVID HAAS 04/20/24 Information Source: Emergency Med Personnel Mode of Arrival: EMS Severity: Moderate Timing: Hours Duration: Since onset Prehospital treatment: None Quality: Decreased Alertness, Change in Behavior, Confusion Recent: None Associated Signs and Symptoms: None Past Medical History PAST MEDICAL HISTORY: Denies Surgical History: Denies all surgeries Family History Family History: Reviewed,noncontributory to illness, Unknown Social History Smoker: Unknown Alcohol: Unknown Drugs: Unknown Lives In: Homeless Unable to Obtain due to: Altered Mental Status Physical Exam General Appearance: No Apparent Distress, Normal HEENT: Normal ENT Inspection, Pharynx Normal Neck: Full Range of Motion, Non-Tender, Normal, Normal Inspection Respiratory: Chest Non-Tender, Lungs Clear, No Accessory Muscle Use, No Respiratory Distress, Normal Breath Sounds Cardiovascular: No Edema, No Murmur, No Gallop, Normal Peripheral Pulses, Regular Rate/Rhythm Breast Exam: Deferred Gastrointestinal: No Organomegaly, Non Tender, No Pulsatile Mass, Normal Bowel Sounds, Soft Genitalia: Deferred Pelvic: Deferred Rectal: Deferred Extremities: Normal range of motion Musculoskeletal : Apperance: Normal Neurologic: Disoriented Cerebellar Function: Normal Reflexes: Normal Skin: Dry, Normal Color, Warm Lymphatic: No Adenopathy EKG EKG : Pulse Rate (adult): 108 [place]: Normal Cardiac Rhythm: ST Block: None Hypertrophy: None ST: Normal Was a procedure done? Was a procedure done?: No Differential Diagnosis (ALOC) Differential Diagnosis: Dehydration, Hypoglycemia, Encephalopathy, Drug Overdose, ETOH Intoxication X-Ray, Labs, Meds, VS Vital Signs Date Time Temp Pulse Resp B/P (MAP) Pulse Ox O2 Delivery O2 Flow Rate FiO2 06/01/24 23:31 97.4 86 12 129/84 (99) 97 97.4 06/01/24 19:47 97.7 89 12 135/71 (92) 97 97.7 06/01/24 15:40 94 16 94 Room Air* 0 21 06/01/24 15:40 98.5 94 16 139/73 (95) 94 98.5 06/01/24 15:07 108 06/01/24 15:05 98.6 95 18 149/93 (111) 96 98.6 06/01/24 14:50 108 Lab Test 06/01/24 17:02 06/01/24 15:30 06/01/24 15:08 Range/Units POC Glucose 70 73 70-106 mg/dl White Blood Count 7.7 4.4-10.8 10^3/uL Red Blood Count 5.01 4.5-5.90 10^6/uL Hemoglobin 15.1 13.5-17.5 g/dL Hematocrit 45.2 41.0-53.0 % Mean Corpuscular Volume 90.2 80.0-100.0 fL Mean Corpuscular Hemoglobin 30.1 28.0-32.0 pg Mean Corpuscular Hemoglobin Concent 33.3 32.0-36.0 g/dL Red Cell Distribution Width 13.4 11.8-14.3 % Platelet Count 196 140-450 10^3/uL Mean Platelet Volume 9.4 6.9-10.8 fL Neutrophils (%) (Auto) 70.5 37.0-80.0 % Lymphocytes (%) (Auto) 20.5 10.0-50.0 % Monocytes (%) (Auto) 8.1 0.0-12.0 % Eosinophils (%) (Auto) 0.5 0.0-7.0 % Basophils (%) (Auto) 0.4 0.0-2.0 % Neutrophils # (Auto) 5.4 1.6-8.6 10 ^3/uL Lymphocytes # (Auto) 1.6 0.4-5.4 10 ^3/uL Monocytes # (Auto) 0.6 0-1.3 10 ^3/uL Eosinophils # (Auto) 0 0-0.8 10 ^3/uL Basophils # (Auto) 0 0-0.2 10 ^3/uL Nucleated Red Blood Cells 0.2 % Sodium Level 142 136-145 mmol/L Potassium Level 3.6 3.5-5.1 mmol/L Chloride Level 104 98-107 mmol/L Carbon Dioxide Level 25 20-31 mmol/L Anion Gap 13 5-15 Blood Urea Nitrogen 8 L 9-23 mg/dL Creatinine 0.77 0.700-1.30 mg/dL Glomerular Filtration Rate Calc 126 >90 mL/min BUN/Creatinine Ratio 10.4 10.0-20.0 Serum Glucose 69 L 74-106 mg/dL Calcium Level 9.7 8.7-10.4 mg/dL Total Bilirubin 1.1 H 0.2-1.0 mg/dL Aspartate Amino Transferase (AST) 31 13-40 U/L Alanine Aminotransferase (ALT) 22 7-40 U/L Alkaline Phosphatase 61 46-116 U/L Total Protein 7.1 5.7-8.2 g/dL Albumin 4.7 3.2-4.8 g/dL Plasma/Serum Blood Alcohol 4.7 <10 mg/dL Current Medications Medications (Trade) Dose Ordered Sig/[place] Route Start Time Stop Time Status Last Admin Diphenhydramine HCl (Benadryl Injection) 25 mg ONCE ONCE IV 06/01/24 15:15 06/01/24 15:16 DC 06/01/24 15:55 X-Ray, Labs, Meds, VS Comment This 28-year-old male well known to our emergency secondary to multiple previous visits for intoxication and presents to the emergency room secondary to being altered. Per staff, this is a frequent occurrence of this patient. The patient has no focalizing findings edit. Chemically altered. Patient was monitored in the emergency room. Patient was signed out to the oncoming physician for final disposition Time of 1ST Reevaluation: 15:20 Reevaluation 1ST: Unchanged Time of 2ND Reevaluation: 17:15 Reevaluation 2ND: Unchanged Patient Education/Counseling: Diagnosis, Treatment Family Education/Counseling: No Family Present Departure 1 Departure Time of Disposition: 01:19 (Patient with altered mental status. We will admit patient for further workup and expert consultation) Impression: Primary Impression: Metabolic encephalopathy Disposition: ADMITTED INPATIENT Admit to: Med Surg Condition: Serious Critical Care Note Critical Care Time?: No Stability Stability form required: No Heart Score Heart Score: Heart Score Response (Comments) Value History N/A 0 EKG N/A 0 Age N/A 0 Risk Factors N/A 0 Troponin N/A 0 Total 0 I personally scribed for SHAMIKA SCHOFIELD MD ([email or web address]) on 06/01/24 at 15:07. Electronically submitted by Ashly Malcolm ([email or web address]). SHAMIKA SCHOFIELD MD Jun 01, 2024 15:07 EDUARDO RICHARDSON MD Jun 02, 2024 01:20
[2024-06-01 15:40] VITALS: PULSE 94; RESP 16; O2SAT 94
[2024-06-01] MEDS: diphenhdrAMINE HCL 50 MG/1 ML VL IV ONE (15:55)
[2024-06-01 16:03] LABS: Basophils # (auto) 0 10 ^3/uL (0-0.2); Basophils % (auto) 0.4 % (0.0-2.0); Eosinophils # (auto) 0 10 ^3/uL (0-0.8); Eosinophils % (auto) 0.5 % (0.0-7.0); Hematocrit 45.2 % (41.0-53.0); Hemoglobin 15.1 g/dL (13.5-17.5); Lymphocytes # (auto) 1.6 10 ^3/uL (0.4-5.4); Lymphocytes % (auto) 20.5 % (10.0-50.0); Mean Corpuscular Hemoglobin 30.1 pg (28.0-32.0); Mean Corpuscular Hgb Conc. 33.3 g/dL (32.0-36.0); Mean Corpuscular Volume 90.2 fL (80.0-100.0); Monocytes # (auto) 0.6 10 ^3/uL (0-1.3); Monocytes % (auto) 8.1 % (0.0-12.0); Neutrophils # (auto) 5.4 10 ^3/uL (1.6-8.6); Neutrophils % (auto) 70.5 % (37.0-80.0); Nucleated Red Blood Cells % 0.2 %; Platelet Count (auto) 196 10^3/uL (140-450); Red Blood Cells 5.01 10^6/uL (4.5-5.90); Red Cell Distribution Width 13.4 % (11.8-14.3); White Blood Cell 7.7 10^3/uL (4.4-10.8)
[2024-06-01 16:26] LABS: Alanine Aminotransferase 22 U/L (7-40); Albumin 4.7 g/dL (3.2-4.8); Alkaline Phosphatase 61 U/L (46-116); Anion Gap 13 (5-15); Aspartate Aminotransferase 31 U/L (13-40); BUN/Creatinine Ratio 10.4 (10.0-20.0); Bilirubin, Total 1.1 mg/dL (0.2-1.0); Blood Alcohol 4.7 mg/dL (<10); Calcium 9.7 mg/dL (8.7-10.4); Carbon Dioxide 25 mmol/L (20-31); Chloride 104 mmol/L (98-107); Potassium 3.6 mmol/L (3.5-5.1); Sodium 142 mmol/L (136-145); Total Protein 7.1 g/dL (5.7-8.2)
[2024-06-01 16:32] LABS: Blood Urea Nitrogen 8 mg/dL (9-23); Glucose 69 mg/dL (74-106)
--- NOTE | 2024-06-01 19:11 | DVH ---
CT BRAIN WITHOUT CONTRAST HISTORY: aloc TECHNIQUE: Axial scans were obtained from the skull base through the vertex without contrast. Sagitta l and coronal reformats were generated. One or more of the following radiation dose reduction techniq ues were used for this examination: automated exposure control, adjustment of the mA and/or kV accord ing to patient size, use of iterative reconstruction technique. COMPARISON: CT HEAD WITHOUT CONTRAST on DOS: 12/14/23 FINDINGS: No acute intracranial hemorrhage or evidence of large vessel territorial infarction identified at thi s time. No midline shift. The basilar cisterns are patent. Saucedo-white differentiation appears relat ively preserved. The visualized paranasal sinuses and mastoid air cells are clear. No grossly displaced calvarial abno rmalities identified. IMPRESSION: No acute intracranial findings.
[2024-06-02] VITALS (9 sets, daily range): BP systolic 99–115; BP diastolic 50–65; PULSE 49–93; RESP 16–19; TEMP 97.5–97.9; O2SAT 92–100
[2024-06-02] MEDS ORDERED: MORPHINE SULFATE INJ 2 MG/ml SYRG IV PRN (08:00)
[2024-06-02] MEDS ORDERED: ACETAMINOPHEN 325 MG TAB PO PRN (08:00)
[2024-06-02] MEDS ORDERED: NITROGLYCERIN 0.4 MG SL TAB SL PRN (08:00)
[2024-06-02] MEDS: SODIUM CHLORIDE 0.9% 1,000 ML IV SCH (08:27)
--- NOTE | 2024-06-02 10:16 | DVHINCON2 ---
Date of service: Jun 02, [address] Mack Cunha Reason for Consultation Encephalopathy History of Present Illness Mr. Avalos he had 28 years old gentleman with a history of drug abuse, the patient was brought to the [facility] on 06/01/2024 with a chief complaint of altered mental status. At this time, he was awake, oriented to person, place, he knows year and the month, but he is in reluctant to talk, history is obtained from his nurse and chart review I saw him on 08/15/2023 for toxic encephalopathy, 12/15/2023 for ALOC On 06/01/2024, the patient was found standing and staring blankly for about 1 ho ur in the gas station. The following is previous ALOC events After being missing for three weeks, the [place] [address], confused, dirty, soaked with urine; when he saw his mother, he was in tears, only said "mama". In the ER, his heart rate was in 30s-40s Before the hospitalization in 08/2023, after missing for 1-2 weeks, he called his mother from a apartment laundry room where his mother used to live in. He told his mother he was thirsty, weak, and when the family came over, the patient did look tired, and dehydrated, he had diminished responsiveness to his surroundings, his heart rate was found to be in 30s. Cardiology saw him on 12/15/2023 and he does not recommended further management UDS, 08/15/23: Amphet. benzo, THC, 12/14/23: Amphetamine, cannabinoids Plasm alcohol, 12/14/2023: Normal, 06/01/2024: 4.7 CBC, 06/01/2024: Unremarkable BMP, 05/2724: Unremarkable Glucose, 06/01/2024: 69 TBI/AST/ALT/AP, 06/01/2024: 1.1/31/22/61 TG/HDL/LDL/HDL, 12/15/2023: 56/103/57/41 TSH, 03/16/2023: 1.83 EEG, 08/15/2023: Normal EEG, 12/14/2023: Normal CT head, 06/01/2024: No acute intracranial findings. MRI head, 08/16/2023: No acute infarct, intracranial hemorrhage, mass effect, or hydrocephalus MRI head, 12/16/2023: No evidence of acute infarction, intracranial hemorrhage, mass lesion or hydrocephalu MRI brain, 06/02/2024: Unremarkable noncontrast MRI brain. Past Medical History No major medical history Past Surgical History No surgery Family History: Patient reports no known family medical history. Family History Diabetes Social History He smokes tobacco and marijuana, he uses methamphetamine, but no history of alcohol abuse Allergies: Coded Allergies: NO KNOWN ALLERGIES (Unverified , 08/15/23) Home Meds Active Scripts Ibuprofen (Ibuprofen) 800 Mg Tab, 1 TAB PO TID PRN, #30 TAB 0 Refills Prov:DAVID HAAS 04/20/24 Current Medications Current Medications Medications (Trade) Dose Ordered Sig/[place] Route PRN Reason Start Time Stop Time Status Last Admin Acetaminophen (Tylenol Tablet) 650 mg Q6HP PRN PO PAIN SCALE 1-3 OR TEMP>100.4 06/02/24 08:00 Nitroglycerin (Ntrostat Sublingual) 0.4 mg Q5MINP PRN SL FOR CHEST PAIN 06/02/24 08:00 Morphine Sulfate 2 mg Q30M PRN IV FOR CHEST PAIN 06/02/24 08:00 Sodium Chloride 1,000 ml @ 100 mls/hr Q10H IV 06/02/24 08:00 06/02/24 08:27 Review of Systems Unobtainable Vital Signs Vital Signs Date Time Temp Pulse Resp B/P (MAP) Pulse Ox O2 Delivery O2 Flow Rate FiO2 06/02/24 07:50 72 16 99 Room Air* 0 21 06/02/24 07:50 97.8 108/64 (79) 97.8 Physical Exam GENERAL EXAM: General: the patient is well developed and nourished. No acute distress. HEENT: Normocephalic, neck is supple, no carotid bruits. No mass. RESPIRATORY: Normal respiratory effort with symmetrical lung expansion. Lungs clear to auscultation. CARDIOVASCULAR: Regular rate and rhythm with no murmurs. S1, S2. ABDOMEN: Soft, nontender, normal bowel sound NEUROLOGICAL: MENTAL STATUS: HPI SPEECH, LANGUAGE, HIGHER CORTICAL FUNCTION: He only vocalized, but did not talk CRANIAL NERVES: #2: Intact visual gardner to confrontation. #3,4,6: Pupils are equal, round and reactive. EOMs full and conjugate. #5: Facial sensation intact in all three divisions bilaterally. Mandibular strength intact. #7: Facial muscles symmetrical and strength intact. #8: Hearing grossly normal to voice. #9,10: Deferred #11: Deferred #12: Deferred SENSATION: Sensation to touch and pinprick is ok. MOTOR: Normal tone in the upper and lower extremity. Normal muscle bulk. No fasciculations. No abnormal movements or posturing. He moves extremities REFLEXES: Deep tendon reflexes are symmetrical. No pathological reflexes. CEREBELLAR/COORDINATION: Deferred GAIT/STATION: deferred Labs/Diagnostic Data Labs Test 06/01/24 17:02 06/01/24 15:30 Range/Units POC Glucose 70 70-106 mg/dl White Blood Count 7.7 4.4-10.8 10^3/uL Red Blood Count 5.01 4.5-5.90 10^6/uL Hemoglobin 15.1 13.5-17.5 g/dL Hematocrit 45.2 41.0-53.0 % Mean Corpuscular Volume 90.2 80.0-100.0 fL Mean Corpuscular Hemoglobin 30.1 28.0-32.0 pg Mean Corpuscular Hemoglobin Concent 33.3 32.0-36.0 g/dL Red Cell Distribution Width 13.4 11.8-14.3 % Platelet Count 196 140-450 10^3/uL Mean Platelet Volume 9.4 6.9-10.8 fL Neutrophils (%) (Auto) 70.5 37.0-80.0 % Lymphocytes (%) (Auto) 20.5 10.0-50.0 % Monocytes (%) (Auto) 8.1 0.0-12.0 % Eosinophils (%) (Auto) 0.5 0.0-7.0 % Basophils (%) (Auto) 0.4 0.0-2.0 % Neutrophils # (Auto) 5.4 1.6-8.6 10 ^3/uL Lymphocytes # (Auto) 1.6 0.4-5.4 10 ^3/uL Monocytes # (Auto) 0.6 0-1.3 10 ^3/uL Eosinophils # (Auto) 0 0-0.8 10 ^3/uL Basophils # (Auto) 0 0-0.2 10 ^3/uL Nucleated Red Blood Cells 0.2 % Sodium Level 142 136-145 mmol/L Potassium Level 3.6 3.5-5.1 mmol/L Chloride Level 104 98-107 mmol/L Carbon Dioxide Level 25 20-31 mmol/L Anion Gap 13 5-15 Blood Urea Nitrogen 8 L 9-23 mg/dL Creatinine 0.77 0.700-1.30 mg/dL Glomerular Filtration Rate Calc 126 >90 mL/min BUN/Creatinine Ratio 10.4 10.0-20.0 Serum Glucose 69 L 74-106 mg/dL Calcium Level 9.7 8.7-10.4 mg/dL Total Bilirubin 1.1 H 0.2-1.0 mg/dL Aspartate Amino Transferase (AST) 31 13-40 U/L Alanine Aminotransferase (ALT) 22 7-40 U/L Alkaline Phosphatase 61 46-116 U/L Total Protein 7.1 5.7-8.2 g/dL Albumin 4.7 3.2-4.8 g/dL Plasma/Serum Blood Alcohol 4.7 <10 mg/dL Assessment Altered mental status Metabolic encephalopathy Toxic encephalopathy Substance abuse Plan/Recommendation Monitoring Supportive treatment Telemetry UDS EEG Thiamine DVT prophylaxis More recommendation per clinical course Poor This medical document was created using an electronic medical record system with [employer] computerized dictation system. Although this document has been carefully reviewed, there may still be some phonetic and typographical errors. These areas are purely typographical due to imperfections of the software programs, and do not reflect any compromise in the patient's medical care Plan discussed with: Other YARELIS GARICA MD Jun 02, 2024 10:16
--- NOTE | 2024-06-02 10:58 | DVH ---
EXAMINATION: MRI BRAIN HEAD WO CONTRAST INDICATION: aloc COMPARISON: MRI BRAIN HEAD WO CONTRAST on DOS: 12/16/23, MRI BRAIN HEAD WO CONTRAST on DOS: 08/16/23 TECHNIQUE: Multiplanar, multisequence magnetic resonance imaging of the brain FINDINGS: There is no restricted diffusion. The moran and white matter signal is appropriate. There is no eviden ce of hemorrhage, mass, mass effect or midline shift. There is no hydrocephalus or extra-axial fluid collection. The visualized intracranial vasculature demonstrates appropriate flow-voids. The sagittal midline structures appear unremarkable. The craniocervical junction is within normal limits. The surinder varium demonstrates normal marrow signal. The paranasal sinuses and mastoid air cells are clear. IMPRESSION: 1. Unremarkable noncontrast MRI brain. HS:Y
[2024-06-02] MEDS ORDERED: VALP1CAP4 PO (14:16)
[2024-06-02] MEDS ORDERED: HYDR50TA32 PO (14:16)
[2024-06-02] MEDS ORDERED: RISP2TAB62 PO ×2 (14:16)
[2024-06-02] MEDS: THIAMINE 100mg/ml INJ (200mg/2ml VIAL) IV ONE (14:46)
[2024-06-02] MEDS: FOLIC ACID 1 MG in D5W 5% 50 ML INJ ONE (15:42)
--- NOTE | 2024-06-02 19:33 | ECG ---
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
--- NOTE | 2024-06-02 19:55 | DVHHP2 ---
History of Present Illness History of Present Illness 28 y/o KELLIE Awad presents to the ED for CC of ALOC. 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 EMS states, all VVS and BS read at 79 on glucometer in route to ED. No other symptoms or modifiers obtainable at this time due to patient being A&Ox0. Review of Systems Review of Systems unable to obtain Allergies: Coded Allergies: NO KNOWN ALLERGIES (Unverified , 08/15/23) Medications Current Medications Medications Dose Ordered Sig/Monroe Route Start Time Stop Time Status Last Admin Dose Admin Acetaminophen 650 mg Q6HP PRN PO 06/02/24 08:00 Nitroglycerin 0.4 mg Q5MINP PRN SL 06/02/24 08:00 Morphine Sulfate 2 mg Q30M PRN IV 06/02/24 08:00 Sodium Chloride 1,000 ml @ 100 mls/hr Q10H IV 06/02/24 08:00 06/02/24 19:43 100 MLS/HR Thiamine HCl 100 mg DAILY IV 06/03/24 10:00 Folic Acid 1 mg/ Dextrose 50.2 ml @ 200.8 mls/ hr DAILY INJ 06/03/24 10:00 Exam Vital Signs Vital Signs Date Time Temp Pulse Resp B/P (MAP) Pulse Ox O2 Delivery O2 Flow Rate FiO2 06/02/24 17:08 97.9 54 16 115/65 (82) 92 97.9 06/02/24 11:06 Room Air* 0 21 General Appearance: Alert, Oriented X3 Respiratory: Clear to auscultation, Normal air movement Cardiovascular: Regular rate, Normal S1, Normal S2, No murmurs Abdominal: Normal bowel sounds, Soft, No tenderness, No hepatospenomegaly, No masses Extremities: No clubbing Labs/Xrays Labs Test 06/01/24 17:02 06/01/24 15:30 Range/Units POC Glucose 70 70-106 mg/dl White Blood Count 7.7 4.4-10.8 10^3/uL Red Blood Count 5.01 4.5-5.90 10^6/uL Hemoglobin 15.1 13.5-17.5 g/dL Hematocrit 45.2 41.0-53.0 % Mean Corpuscular Volume 90.2 80.0-100.0 fL Mean Corpuscular Hemoglobin 30.1 28.0-32.0 pg Mean Corpuscular Hemoglobin Concent 33.3 32.0-36.0 g/dL Red Cell Distribution Width 13.4 11.8-14.3 % Platelet Count 196 140-450 10^3/uL Mean Platelet Volume 9.4 6.9-10.8 fL Neutrophils (%) (Auto) 70.5 37.0-80.0 % Lymphocytes (%) (Auto) 20.5 10.0-50.0 % Monocytes (%) (Auto) 8.1 0.0-12.0 % Eosinophils (%) (Auto) 0.5 0.0-7.0 % Basophils (%) (Auto) 0.4 0.0-2.0 % Neutrophils # (Auto) 5.4 1.6-8.6 10 ^3/uL Lymphocytes # (Auto) 1.6 0.4-5.4 10 ^3/uL Monocytes # (Auto) 0.6 0-1.3 10 ^3/uL Eosinophils # (Auto) 0 0-0.8 10 ^3/uL Basophils # (Auto) 0 0-0.2 10 ^3/uL Nucleated Red Blood Cells 0.2 % Sodium Level 142 136-145 mmol/L Potassium Level 3.6 3.5-5.1 mmol/L Chloride Level 104 98-107 mmol/L Carbon Dioxide Level 25 20-31 mmol/L Anion Gap 13 5-15 Blood Urea Nitrogen 8 L 9-23 mg/dL Creatinine 0.77 0.700-1.30 mg/dL Glomerular Filtration Rate Calc 126 >90 mL/min BUN/Creatinine Ratio 10.4 10.0-20.0 Serum Glucose 69 L 74-106 mg/dL Calcium Level 9.7 8.7-10.4 mg/dL Total Bilirubin 1.1 H 0.2-1.0 mg/dL Aspartate Amino Transferase (AST) 31 13-40 U/L Alanine Aminotransferase (ALT) 22 7-40 U/L Alkaline Phosphatase 61 46-116 U/L Total Protein 7.1 5.7-8.2 g/dL Albumin 4.7 3.2-4.8 g/dL Plasma/Serum Blood Alcohol 4.7 <10 mg/dL Assessment/Plan Assessment/Plan 1. acute toxic encephalopathy pending UDS, neurology consults, supportive care, IVF 2. Polysubstance abuse Monitor, PPI 3. Bradycardic Monitor, 4. EtOH abuse Plan discussed with: Patient My Orders Orders - EDUARDO CARTAGENA Procedure Category Date Status Time Admit ADMIT 06/02/24 Transmitted 08:00 Cardiac DIET 06/02/24 Transmitted Diet-2gna,Lofat,Lochol Breakfast Condition: Unstable ZULY 06/02/24 In Process 08:00 Acetaminophen Tablet PHA 06/02/24 In Process (Tylenol Tablet) 08:00 Nitroglycerin PHA 06/02/24 In Process Sublingual (Ntrostat 08:00 Morphine Sulfate PHA 06/02/24 In Process Injection 08:00 Stat Ekg For Chest ZULY 06/02/24 In Process Pain 08:00 Notify Of Changes ZULY 06/02/24 In Process From Base 08:00 Wringer And Setter For ZULY 06/02/24 In Process 24 Hours 08:00 Emergency Dysrhythmia ZULY 06/02/24 In Process Protocol 08:00 Rhythm Strips Once ZULY 06/02/24 In Process Every Shift 08:00 Oxygen By Nasal RT 06/02/24 Transmitted Cannula 08:00 *Consult Dr. Vance CONS 06/02/24 Transmitted Liang 08:00 Sodium Chloride 0.9% PHA 06/02/24 In Process 08:00 Brain Head Wo Contrast MRI 06/02/24 Resulted 08:02 Education - Smoking ZULY 06/02/24 In Process Cessation 12:45 * Smoking Cessation CONS 06/02/24 Transmitted Consult 12:45 * Public Relations Senior Associate CONS 06/02/24 Transmitted Consult 12:45 Date of Service: Jun 02, 2024 Billing Provider: GERALDINE WILSON MD Common Visit Codes: [id number] INP/OBS CARE (MOD) EDUARDO CARTAGENA Jun 02, 2024 19:55
[2024-06-03] VITALS (8 sets, daily range): BP systolic 95–155; BP diastolic 42–94; PULSE 45–86; RESP 16–20; TEMP 98–98.7; O2SAT 94–100
[2024-06-03 00:49] LABS: Urine Bacteria None Seen /hpf (None Seen)
[2024-06-03 01:56] LABS: Urine Blood Negative /uL (Negative); Urine Clarity Clear (Clear); Urine Color Yellow (Yellow); Urine Mucus FEW (None Seen); Urine Protein, UAD TRACE (Negative); Urine Specific Gravity 1.035 (1.001-1.035); Urine Squamous Epithelial Cell FEW /hpf (<5); Urine Urobilinogen Normal (Negative); Urine WBC 3 /HPF (0-3)
[2024-06-03 02:05] LABS: Amphetamine Screen, Urine Pos (NEGATIVE); Barbiturate Scree,Urine Neg (NEGATIVE); Benzodiazephine Screen, Urine Neg (NEGATIVE); Cannabinoid Screen, Urine Neg (NEGATIVE); Cocaine Screen, Urine Neg (NEGATIVE); Opiate Scree,Urine Neg (NEGATIVE); Phencyclidine Screen, Urine Neg (NEGATIVE)
[2024-06-03 08:41] LABS: Basophils # (auto) 0 10 ^3/uL (0-0.2); Basophils % (auto) 0.7 % (0.0-2.0); Eosinophils # (auto) 0.2 10 ^3/uL (0-0.8); Eosinophils % (auto) 3.7 % (0.0-7.0); Hematocrit 41.6 % (41.0-53.0); Hemoglobin 14.3 g/dL (13.5-17.5); Lymphocytes # (auto) 1.9 10 ^3/uL (0.4-5.4); Lymphocytes % (auto) 36.7 % (10.0-50.0); Mean Corpuscular Hemoglobin 31.2 pg (28.0-32.0); Mean Corpuscular Hgb Conc. 34.3 g/dL (32.0-36.0); Monocytes # (auto) 0.4 10 ^3/uL (0-1.3); Monocytes % (auto) 7.3 % (0.0-12.0); Neutrophils # (auto) 2.7 10 ^3/uL (1.6-8.6); Neutrophils % (auto) 51.6 % (37.0-80.0); Nucleated Red Blood Cells % 0.2 %; Platelet Count (auto) 183 10^3/uL (140-450); Red Blood Cells 4.57 10^6/uL (4.5-5.90); Red Cell Distribution Width 13.5 % (11.8-14.3); White Blood Cell 5.2 10^3/uL (4.4-10.8)
[2024-06-03 08:51] LABS: Potassium 3.6 mmol/L (3.5-5.1); Sodium 141 mmol/L (136-145)
[2024-06-03 08:52] LABS: Anion Gap 9 (5-15); Carbon Dioxide 25 mmol/L (20-31)
[2024-06-03 08:53] LABS: Calcium 8.8 mg/dL (8.7-10.4)
[2024-06-03 08:57] LABS: BUN/Creatinine Ratio 10.8 (10.0-20.0); Glucose 78 mg/dL (74-106)
[2024-06-03 09:02] LABS: Blood Urea Nitrogen 8 mg/dL (9-23); Chloride 107 mmol/L (98-107)
[2024-06-03] MEDS: THIAMINE 100mg/ml INJ (200mg/2ml VIAL) IV SCH (10:02)
[2024-06-03] MEDS: FOLIC ACID 1 MG in D5W 5% 50 ML INJ SCH (10:50)
--- NOTE | 2024-06-03 17:35 | DVHPN2 ---
Progress Note Date Seen: Jun 03, 2024 Medical Necessity Reason Pt with a Central, PICC or Fol: No Subjective Review of Systems: CVS:Normal, RESPIRATORY:Normal, GI:Normal, NEURO:Normal Objective vital signs Vital Sign Date Time Temp Pulse Resp B/P (MAP) Pulse Ox O2 Delivery O2 Flow Rate FiO2 06/03/24 16:54 98.7 68 20 109/66 (80) 94 98.7 06/03/24 08:00 Room Air* 0 21 Total Intake and Output 06/02/24 06/02/24 06/03/24 15:00 23:00 07:00 Intake Total 910.2 ml 400 ml Balance 910.2 ml 400 ml medications Current Medications Medications Dose Ordered Sig/Monroe Route Start Time Stop Time Status Last Admin Dose Admin Acetaminophen 650 mg Q6HP PRN PO 06/02/24 08:00 Nitroglycerin 0.4 mg Q5MINP PRN SL 06/02/24 08:00 Morphine Sulfate 2 mg Q30M PRN IV 06/02/24 08:00 Sodium Chloride 1,000 ml @ 100 mls/hr Q10H IV 06/02/24 08:00 06/03/24 04:49 100 MLS/HR Thiamine HCl 100 mg DAILY IV 06/03/24 10:00 06/03/24 10:02 100 MG Folic Acid 1 mg/ Dextrose 50.2 ml @ 200.8 mls/ hr DAILY INJ 06/03/24 10:00 06/03/24 10:50 200.8 MLS/HR Examination: GENERAL:Normal, LUNGS:Normal, CVS:Normal, ABDOMEN:Normal, SKIN:Normal, NEURO:Normal laboratory and microbiology Laboratory Tests 06/03/24 08:28 Test 06/03/24 08:28 Range/Units Serum Glucose 78 74-106 mg/dL Labs and/or images reviewed: Labs reviewed by me, Image(s) reviewed by me Problem List/Assessment/Plan Problem List/Assessment/Plan 1. acute toxic encephalopathy pending UDS, neurology consults, supportive care, IVF 2. Polysubstance abuse Monitor, PPI 3. Bradycardic Monitor, 4. 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 Patient has multiple admissions for the same issue. Today patient is completely alert and oriented x4 answering all questions appropriately. Plan: We will monitor overnight, possible discharge tomorrow Plan discussed with: Patient My Orders My Orders Orders - EDUARDO CARTAGENA Procedure Category Date Status Time Communication Order ORDERS 06/02/24 Transmitted 19:48 Straight Cath Patient ORDERS 06/02/24 Transmitted 19:48 Date of Service: Jun 03, 2024 Billing Provider: GERALDINE WILSON MD Common Visit Codes: [id number] INP/OBS CARE (MOD) EDUARDO CARTAGENA Jun 03, 2024 17:35
--- NOTE | 2024-06-03 23:07 | DVHPN2 ---
Progress Note - Dictate Date Seen: Jun 03, 2024 Medical Necessity Reason Pt with a Central, PICC or Fol: No Subjective Mr. Avalos he had 28 years old gentleman with a history of drug abuse, the patient was brought to the [facility] on 06/01/2024 with a chief complaint of altered mental status. I saw him on 08/15/2023 for toxic encephalopathy, 12/15/2023 for ALOC I have seen examined patient, along with his nurse, he is better, awake x3, but he does what happened to him before he came to the hospital He was not reported he confirm a history of schizophrenia, but he does not remember his medication treatment Urinalysis, 06/03/24: WBC: 3, urine leukocyte esterase: Negative UDS, 08/15/23: Amphet. benzo, THC, 12/14/23: Amphetamine, cannabinoids, 06/03/24: Amphetamine Plasm alcohol, 12/14/2023: Normal, 06/01/2024: 4.7 CBC, 06/01/2024: Unremarkable BMP, 05/2724: Unremarkable Glucose, 06/01/2024: 69 TBI/AST/ALT/AP, 06/01/2024: 1.1/31/22/61 TG/HDL/LDL/HDL, 12/15/2023: 56/103/57/41 TSH, 03/16/2023: 1.83 EEG, 08/15/2023: Normal EEG, 12/14/2023: Normal CT head, 06/01/2024: No acute intracranial findings. MRI head, 08/16/2023: No acute infarct, intracranial hemorrhage, mass effect, or hydrocephalus MRI head, 12/16/2023: No evidence of acute infarction, intracranial hemorrhage, mass lesion or hydrocephalu MRI brain, 06/02/2024: Unremarkable noncontrast MRI brain. vital signs Vital Sign Date Time Temp Pulse Resp B/P (MAP) Pulse Ox O2 Delivery O2 Flow Rate FiO2 06/03/24 21:00 98.0 66 16 115/53 (73) 96 98.0 06/03/24 20:00 Room Air* 0 21 Total Intake and Output 06/02/24 06/02/24 06/03/24 15:00 23:00 07:00 Intake Total 910.2 ml 400 ml Balance 910.2 ml 400 ml medications Current Medications Medications Dose Ordered Sig/Monroe Route Start Time Stop Time Status Last Admin Dose Admin Acetaminophen 650 mg Q6HP PRN PO 06/02/24 08:00 Nitroglycerin 0.4 mg Q5MINP PRN SL 06/02/24 08:00 Morphine Sulfate 2 mg Q30M PRN IV 06/02/24 08:00 Sodium Chloride 1,000 ml @ 100 mls/hr Q10H IV 06/02/24 08:00 06/03/24 04:49 100 MLS/HR Thiamine HCl 100 mg DAILY IV 06/03/24 10:00 06/03/24 10:02 100 MG Folic Acid 1 mg/ Dextrose 50.2 ml @ 200.8 mls/ hr DAILY INJ 06/03/24 10:00 06/03/24 10:50 200.8 MLS/HR objective General: the patient is well developed and nourished. No acute distress. MENTAL STATUS: Subjective SPEECH, LANGUAGE, HIGHER CORTICAL FUNCTION: No aphasia or dysarthria CRANIAL NERVES: Pupils are equal, round and reactive. EOMs full and conjugate. Facial sensation intact in all three divisions bilaterally. Mandibular strength intact. Facial muscles symmetrical and strength intact. SENSATION: Sensation to touch and pinprick is ok. MOTOR: Normal tone in the upper and lower extremity. Normal muscle bulk. No fasciculations. No abnormal movements or posturing. He moves extremities, muscle power feels normal REFLEXES: Deep tendon reflexes are symmetrical. No pathological reflexes. CEREBELLAR/COORDINATION: Unremarkable finger-nose test bilaterally Gait: Deferred laboratory and microbiology Laboratory Tests 06/03/24 08:28 Test 06/03/24 08:28 Range/Units Serum Glucose 78 74-106 mg/dL Problem List Altered mental status, resolved Metabolic encephalopathy Toxic encephalopathy Substance abuse Schizophrenia Assessment/Plan Monitoring Supportive treatment Telemetry Tele psychiatry evaluation EEG Thiamine DVT prophylaxis More recommendation per clinical course This medical document was created using an electronic medical record system with [employer] dictation system. Although this document has been carefully reviewed, there may still be some phonetic and typographical errors. These areas are purely typographical due to imperfections of the software programs, and do not reflect any compromise in the patient's medical care Prognosis poor Plan discussed with: Other YARELIS GARCIA MD Jun 03, 2024 23:07
[2024-06-04] VITALS (7 sets, daily range): BP systolic 96–118; BP diastolic 48–64; PULSE 46–67; RESP 16–18; TEMP 97.8–98.8; O2SAT 96–99
--- NOTE | 2024-06-04 09:20 | DVHDS2 ---
ASSESSMENT ASSESSMENT Hospital Course 28 yo male admitted for ALOC. Dr. Liang's note is mort informative in that it depicts the pt having been found staring into space at a gas station in the same spot. Pt had been missing for 2 weeks from home. Pt apparently takes risperdal BID likely for schizophrenia or bipolar disorder (unknown). A psychiatric interview was attempted today at 8:45 am but the pt is not responding to any questions. He has a flat affect, stares the the camera and does not speak. RN reported that pt has intermittently spoken a word or 2 here and there and is also very soft spoken. Assessment The current presentation appears to be consistent with Catatonia. The pt is awake, able to move around, as noted by his shifting in bed and pulling the sheets close to his chin. But is selectively mute. Therefore it is recommended that Ativan 1 mg TID be started and when the pt is more conversant a repeat psych interview be attempted to explore what other treatments need to be started/restarted. Case was discussed with GEE Monson who was appreciative of the consult. Problems: (1) Catatonia TERRI MYLES MD Jun 04, 2024 09:20
--- NOTE | 2024-06-04 11:04 | DVHPN2 ---
Progress Note Date Seen: Jun 04, 2024 Medical Necessity Reason Pt with a Central, PICC or Fol: No Subjective Review of Systems: CVS:Normal, RESPIRATORY:Normal, GI:Normal, NEURO:Normal Objective vital signs Vital Sign Date Time Temp Pulse Resp B/P (MAP) Pulse Ox O2 Delivery O2 Flow Rate FiO2 06/04/24 08:40 97.9 55 16 96/50 (65) 97 97.9 06/03/24 20:00 Room Air* 0 21 Total Intake and Output 06/03/24 06/03/24 06/04/24 15:00 23:00 07:00 Intake Total 50.2 ml 1000 ml 500 ml Output Total 1300 ml 350 ml Balance 50.2 ml -300 ml 150 ml medications Current Medications Medications Dose Ordered Sig/Monroe Route Start Time Stop Time Status Last Admin Dose Admin Acetaminophen 650 mg Q6HP PRN PO 06/02/24 08:00 Nitroglycerin 0.4 mg Q5MINP PRN SL 06/02/24 08:00 Morphine Sulfate 2 mg Q30M PRN IV 06/02/24 08:00 Sodium Chloride 1,000 ml @ 100 mls/hr Q10H IV 06/02/24 08:00 06/04/24 10:06 100 MLS/HR Thiamine HCl 100 mg DAILY IV 06/03/24 10:00 06/04/24 10:05 100 MG Folic Acid 1 mg/ Dextrose 50.2 ml @ 200.8 mls/ hr DAILY INJ 06/03/24 10:00 06/04/24 10:06 200.8 MLS/HR Lorazepam 1 mg Q8HP PO 06/04/24 14:00 Examination: GENERAL:Normal, LUNGS:Normal, CVS:Normal, ABDOMEN:Normal, SKIN:Normal, NEURO:Normal laboratory and microbiology Laboratory Tests 06/03/24 08:28 Test 06/03/24 08:28 Range/Units Serum Glucose 78 74-106 mg/dL Problem List/Assessment/Plan Problem List/Assessment/Plan 1. acute toxic encephalopathy pending UDS, neurology consults, supportive care, IVF 2. Polysubstance abuse Monitor, PPI 3. Bradycardic Monitor, 4. 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 Patient has multiple admissions for the same issue. Today patient remains catatonic. I discussed case with psychiatry who recommends patient be started on Ativan 1 mg t.i.d. and if patient becomes more responsive we can start risperidone which patient takes at home in about three days or we can re-consult Psychiatry in three days if patient is more responsive. Plan: Start patient on Ativan 1 mg t.i.d. as recommended by psychiatry, we will reassess with possible psychiatry consult in three days if patient is more responsive Plan discussed with: Patient My Orders My Orders Orders - EDUARDO CARTAGENA Procedure Category Date Status Time Lorazepam Tablet PHA 06/04/24 In Process (Ativan Tablet) 14:00 Date of Service: Jun 04, 2024 Billing Provider: GERALDINE WILSON MD Common Visit Codes: [id number] INP/OBS CARE (MOD) EDUARDO CARTAGENA Jun 04, 2024 11:04
[2024-06-04] MEDS: LORazepam 0.5 MG TAB PO SCH (14:00)
[2024-06-05 05:00] VITALS: BP 103/57; PULSE 52; RESP 17; O2SAT 99
[2024-06-05 08:00] VITALS: PULSE 49
[2024-06-05] MEDS ORDERED: THIAMINE HCL 100 MG TAB PO SCH (10:00)
[2024-06-05] MEDS: THIAMINE HCL 100 MG TAB PO SCH (11:30)
[2024-06-05] MEDS: FOLIC ACID 1 MG TAB PO SCH (11:30)
--- NOTE | 2024-06-05 12:22 | DVHPN2 ---
Progress Note Date Seen: Jun 05, 2024 Medical Necessity Reason Pt with a Central, PICC or Fol: No Subjective Review of Systems: Not Done (Not answering questions) Objective vital signs Vital Sign Date Time Temp Pulse Resp B/P (MAP) Pulse Ox O2 Delivery O2 Flow Rate FiO2 06/05/24 08:00 49 06/05/24 05:00 17 103/57 (72) 99 06/04/24 20:00 Room Air* 0 21 06/04/24 17:00 98.8 98.8 Total Intake and Output 06/04/24 06/04/24 06/05/24 15:00 23:00 07:00 Intake Total 50.2 ml 1720 ml 1520 ml Output Total 400 ml 400 ml Balance 50.2 ml 1320 ml 1120 ml medications Current Medications Medications Dose Ordered Sig/Monroe Route Start Time Stop Time Status Last Admin Dose Admin Acetaminophen 650 mg Q6HP PRN PO 06/02/24 08:00 Nitroglycerin 0.4 mg Q5MINP PRN SL 06/02/24 08:00 Morphine Sulfate 2 mg Q30M PRN IV 06/02/24 08:00 Sodium Chloride 1,000 ml @ 100 mls/hr Q10H IV 06/02/24 08:00 06/05/24 06:06 100 MLS/HR Lorazepam 1 mg Q8HP IV 06/05/24 14:00 Folic Acid 1 mg DAILY PO 06/05/24 10:00 Thiamine HCl 100 mg DAILY PO 06/05/24 10:00 Cancel Thiamine HCl 100 mg DAILY PO 06/05/24 10:00 Examination: LUNGS:Normal, CVS:Normal, ABDOMEN:Normal, SKIN:Normal, NEURO:Normal laboratory and microbiology Laboratory Tests 06/03/24 08:28 Test 06/03/24 08:28 Range/Units Serum Glucose 78 74-106 mg/dL Labs and/or images reviewed: Labs reviewed by me, Image(s) reviewed by me Problem List/Assessment/Plan Problem List/Assessment/Plan 1. acute toxic encephalopathy pending UDS, neurology consults, supportive care, IVF 2. Polysubstance abuse Monitor, PPI 3. Bradycardic Monitor, 4. 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 Patient has multiple admissions for the same issue. Patient continues to be catatonic, per nursing notes patient was refusing medication. We will continue to encourage patient to take medication. I discussed case with psychiatry who recommends patient be started on Ativan 1 mg t.i.d. and if patient becomes more responsive we can start risperidone which patient takes at home in about three days or we can re-consult Psychiatry in three days if patient is more responsive. Plan: Start patient on Ativan 1 mg t.i.d. as recommended by psychiatry, we will reassess with possible psychiatry consult in three days if patient is more responsive, encourage patient to take medication Plan discussed with: Patient My Orders My Orders Orders - EDUARDO CARTAGENA Procedure Category Date Status Time Lorazepam 2mg/Ml Inj PHA 06/05/24 In Process (Ativan Inj) 14:00 Date of Service: Jun 05, 2024 Billing Provider: GERALDINE WILSON MD Common Visit Codes: [id number] INP/OBS CARE (MOD) EDUARDO CARTAGENA Jun 05, 2024 12:22
[2024-06-05] MEDS ORDERED: LORazepam 2MG/ML-1ML VIAL IV PRN (12:45)
[2024-06-05 13:16] VITALS: BP 122/82; PULSE 75; RESP 20; O2SAT 97
[2024-06-05] MEDS ORDERED: LORazepam 2MG/ML-1ML VIAL IV SCH (14:00)
[2024-06-05 20:00] VITALS: PULSE 60
[2024-06-05 21:00] VITALS: BP 113/59; PULSE 66; RESP 17; TEMP 98.2; O2SAT 96
--- NOTE | 2024-06-05 23:09 | DVHPN2 ---
Progress Note - Dictate Date Seen: Jun 05, 2024 Medical Necessity Reason Pt with a Central, PICC or Fol: No Subjective Mr. Avalos he had 28 years old gentleman with a history of drug abuse, the patient was brought to the [facility] on 06/01/2024 with a chief complaint of altered mental status. I saw him on 08/15/2023 for toxic encephalopathy, 12/15/2023 for ALOC I have seen examined patient, he was awake, lying in the bed, reluctant to talk According to his nurse, the patient is not very cooperative, or verbal communicative. Urinalysis, 06/03/24: WBC: 3, urine leukocyte esterase: Negative UDS, 08/15/23: Amphet. benzo, THC, 12/14/23: Amphetamine, cannabinoids, 06/03/24: Amphetamine Plasm alcohol, 12/14/2023: Normal, 06/01/2024: 4.7 CBC, 06/01/2024: Unremarkable BMP, 05/2724: Unremarkable Glucose, 06/01/2024: 69 TBI/AST/ALT/AP, 06/01/2024: 1.1//61 TG/HDL/LDL/HDL, 12/15/2023: 56/103/57/41 TSH, 03/16/2023: 1.83 EEG, 08/15/2023: Normal EEG, 12/14/2023: Normal CT head, 06/01/2024: No acute intracranial findings. MRI head, 08/16/2023: No acute infarct, intracranial hemorrhage, mass effect, or hydrocephalus MRI head, 12/16/2023: No evidence of acute infarction, intracranial hemorrhage, mass lesion or hydrocephalu MRI brain, 06/02/2024: Unremarkable noncontrast MRI brain. vital signs Vital Sign Date Time Temp Pulse Resp B/P (MAP) Pulse Ox O2 Delivery O2 Flow Rate FiO2 06/05/24 21:00 98.2 66 17 113/59 (77) 96 98.2 06/05/24 20:00 Room Air* 0 21 Total Intake and Output 06/04/24 06/04/24 06/05/24 15:00 23:00 07:00 Intake Total 50.2 ml 1720 ml 1520 ml Output Total 400 ml 400 ml Balance 50.2 ml 1320 ml 1120 ml medications Current Medications Medications Dose Ordered Sig/Monroe Route Start Time Stop Time Status Last Admin Dose Admin Acetaminophen 650 mg Q6HP PRN PO 06/02/24 08:00 Nitroglycerin 0.4 mg Q5MINP PRN SL 06/02/24 08:00 Morphine Sulfate 2 mg Q30M PRN IV 06/02/24 08:00 Sodium Chloride 1,000 ml @ 100 mls/hr Q10H IV 06/02/24 08:00 06/05/24 16:06 100 MLS/HR Folic Acid 1 mg DAILY PO 06/05/24 10:00 Thiamine HCl 100 mg DAILY PO 06/05/24 10:00 Cancel Thiamine HCl 100 mg DAILY PO 06/05/24 10:00 Lorazepam 1 mg Q8HPRN PRN IV 06/05/24 12:45 objective General: the patient is well developed and nourished. No acute distress. MENTAL STATUS: Subjective SPEECH, LANGUAGE, HIGHER CORTICAL FUNCTION: No aphasia or dysarthria CRANIAL NERVES: Pupils are equal, round and reactive. EOMs full and conjugate. Facial sensation intact in all three divisions bilaterally. Mandibular strength intact. Facial muscles symmetrical and strength intact. SENSATION: Sensation to touch and pinprick is ok. MOTOR: Normal tone in the upper and lower extremity. Normal muscle bulk. No fasciculations. No abnormal movements or posturing. He moves extremities, REFLEXES: Deep tendon reflexes are symmetrical. No pathological reflexes. CEREBELLAR/COORDINATION: Unremarkable finger-nose test bilaterally Gait: Deferred laboratory and microbiology Laboratory Tests 06/03/24 08:28 Test 06/03/24 08:28 Range/Units Serum Glucose 78 74-106 mg/dL Problem List Altered mental status, resolved Metabolic encephalopathy Toxic encephalopathy Substance abuse Schizophrenia Assessment/Plan Monitoring Supportive treatment Telemetry Tele psychiatry evaluation EEG Thiamine DVT prophylaxis Social service on case More recommendation per clinical course This medical document was created using an electronic medical record system with [employer] dictation system. Although this document has been carefully reviewed, there may still be some phonetic and typographical errors. These areas are purely typographical due to imperfections of the software programs, and do not reflect any compromise in the patient's medical care Prognosis poor Dietary Evaluation Review Comments: 1) Ensure Enlive 240ml BID 2) Continue current plan of care Expected Outcomes/Goals: Pt will meet >75% estimated needs Fu 3-5 days Plan discussed with: Other YARELIS GARCIA MD Jun 05, 2024 23:09
[2024-06-06 01:00] VITALS: BP 107/56; PULSE 55; RESP 18; TEMP 98.1; O2SAT 97
[2024-06-06 05:00] VITALS: BP 111/58; PULSE 89; RESP 19; TEMP 98; O2SAT 96
[2024-06-06 08:00] VITALS: PULSE 48
--- NOTE | 2024-06-06 10:41 | DVHPN2 ---
Progress Note Date Seen: Jun 06, 2024 Medical Necessity Reason Pt with a Central, PICC or Fol: No Subjective Review of Systems: Not Done (Catatonic) Objective vital signs Vital Sign Date Time Temp Pulse Resp B/P (MAP) Pulse Ox O2 Delivery O2 Flow Rate FiO2 06/06/24 05:00 98.0 89 19 111/58 (75) 96 98.0 06/05/24 20:00 Room Air* 0 21 Total Intake and Output 06/05/24 06/05/24 06/06/24 15:00 23:00 07:00 Intake Total 1920 ml 200 ml Output Total 750 ml Balance -750 ml 1920 ml 200 ml medications Current Medications Medications Dose Ordered Sig/[place] Route Start Time Stop Time Status Last Admin Dose Admin Acetaminophen 650 mg Q6HP PRN PO 06/02/24 08:00 Nitroglycerin 0.4 mg Q5MINP PRN SL 06/02/24 08:00 Morphine Sulfate 2 mg Q30M PRN IV 06/02/24 08:00 Sodium Chloride 1,000 ml @ 100 mls/hr Q10H IV 06/02/24 08:00 06/05/24 23:22 100 MLS/HR Folic Acid 1 mg DAILY PO 06/05/24 10:00 Thiamine HCl 100 mg DAILY PO 06/05/24 10:00 Cancel Thiamine HCl 100 mg DAILY PO 06/05/24 10:00 Lorazepam 1 mg Q8HPRN PRN IV 06/05/24 12:45 Examination: GENERAL:Normal, LUNGS:Normal, CVS:Normal, ABDOMEN:Normal, SKIN:Normal, NEURO:Normal laboratory and microbiology Laboratory Tests 06/03/24 08:28 Test 06/03/24 08:28 Range/Units Serum Glucose 78 74-106 mg/dL Labs and/or images reviewed: Labs reviewed by me, Image(s) reviewed by me Problem List/Assessment/Plan Problem List/Assessment/Plan 1. acute toxic encephalopathy pending UDS, neurology consults, supportive care, IVF 2. Polysubstance abuse Monitor, PPI 3. Bradycardic Monitor, 4. 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 Patient continues to be catatonic, per nursing notes patient was refusing medication. Patient remains refusing medication, can not discharge until cleared by Psychiatry.. Patient has multiple admissions for the same issue. We will continue to encourage patient to take medication. I discussed case with psychiatry who recommends patient be started on Ativan 1 mg t.i.d. and if patient becomes more responsive we can start risperidone which patient takes at home in about three days or we can re-consult Psychiatry in three days if patient is more responsive. When patient is asked questions he says no to everything. Plan: Encourage patient to take Ativan 1 mg t.i.d. as recommended by psychiatry, we will reassess with possible psychiatry consult in three days if patient is more responsive Plan discussed with: Patient My Orders My Orders Orders - EDUARDO CARTAGENA Procedure Category Date Status Time Lorazepam 2mg/Ml Inj PHA 06/05/24 In Process (Ativan Inj) 12:45 Dietary Evaluation Review Comments: 1) Ensure Enlive 240ml BID 2) Continue current plan of care Expected Outcomes/Goals: Pt will meet >75% estimated needs Fu 3-5 days Date of Service: Jun 06, 2024 Billing Provider: GERALDINE WILSON MD Common Visit Codes: [id number] INP/OBS CARE (MOD) EDUARDO CARTAGENA Jun 06, 2024 10:41
[2024-06-06 13:00] VITALS: BP 119/57; PULSE 61; RESP 16
--- NOTE | 2024-06-06 16:48 | DVHPN2 ---
Progress Note - Dictate Date Seen: Jun 06, 2024 Medical Necessity Reason Pt with a Central, PICC or Fol: No Subjective Mr. Avalos he had 28 years old gentleman with a history of drug abuse, the patient was brought to the [facility] on 06/01/2024 with a chief complaint of altered mental status. I saw him on 08/15/2023 for toxic encephalopathy, 12/15/2023 for ALOC I have seen examined patient, he was awake, she was better today, alert oriented x4, he talks, he answer questions, he wanted to be discharged but he admited no place to go, and he agreed to stay longer. He does not want stay with his family Urinalysis, 06/03/24: WBC: 3, urine leukocyte esterase: Negative UDS, 08/15/23: Amphet. benzo, THC, 12/14/23: Amphetamine, cannabinoids, 06/03/24: Amphetamine Plasm alcohol, 12/14/2023: Normal, 06/01/2024: 4.7 CBC, 06/01/2024: Unremarkable BMP, 05/2724: Unremarkable Glucose, 06/01/2024: 69 TBI/AST/ALT/AP, 06/01/2024: 1.04/07//61 TG/HDL/LDL/HDL, 12/15/2023: 56/103/57/41 TSH, 03/16/2023: 1.83 EEG, 08/15/2023: Normal EEG, 12/14/2023: Normal CT head, 06/01/2024: No acute intracranial findings. MRI head, 08/16/2023: No acute infarct, intracranial hemorrhage, mass effect, or hydrocephalus MRI head, 12/16/2023: No evidence of acute infarction, intracranial hemorrhage, mass lesion or hydrocephalu MRI brain, 06/02/2024: Unremarkable noncontrast MRI brain. vital signs Vital Sign Date Time Temp Pulse Resp B/P (MAP) Pulse Ox O2 Delivery O2 Flow Rate FiO2 06/06/24 13:00 61 16 119/57 (77) 06/06/24 08:00 Room Air* 0 21 06/06/24 05:00 98.0 96 98.0 Total Intake and Output 06/05/24 06/05/24 06/06/24 15:00 23:00 07:00 Intake Total 1920 ml 200 ml Output Total 750 ml Balance -750 ml 1920 ml 200 ml medications Current Medications Medications Dose Ordered Sig/[place] Route Start Time Stop Time Status Last Admin Dose Admin Acetaminophen 650 mg Q6HP PRN PO 06/02/24 08:00 Nitroglycerin 0.4 mg Q5MINP PRN SL 06/02/24 08:00 Morphine Sulfate 2 mg Q30M PRN IV 06/02/24 08:00 Folic Acid 1 mg DAILY PO 06/05/24 10:00 Thiamine HCl 100 mg DAILY PO 06/05/24 10:00 Cancel Thiamine HCl 100 mg DAILY PO 06/05/24 10:00 Lorazepam 1 mg Q8HPRN PRN IV 06/05/24 12:45 objective General: the patient is well developed and nourished. No acute distress. MENTAL STATUS: Subjective SPEECH, LANGUAGE, HIGHER CORTICAL FUNCTION: No aphasia or dysarthria CRANIAL NERVES: Pupils are equal, round and reactive. EOMs full and conjugate. Facial sensation intact in all three divisions bilaterally. Mandibular strength intact. Facial muscles symmetrical and strength intact. SENSATION: Sensation to touch and pinprick is ok. MOTOR: Normal tone in the upper and lower extremity. Normal muscle bulk. No fasciculations. No abnormal movements or posturing. He moves extremities, REFLEXES: Deep tendon reflexes are symmetrical. No pathological reflexes. CEREBELLAR/COORDINATION: Unremarkable finger-nose test bilaterally Gait: Unremarkable laboratory and microbiology Laboratory Tests 06/03/24 08:28 Test 06/03/24 08:28 Range/Units Serum Glucose 78 74-106 mg/dL Problem List Altered mental status, resolved Metabolic encephalopathy Toxic encephalopathy Substance abuse Schizophrenia Assessment/Plan Monitoring Supportive treatment Telemetry Tele psychiatry evaluation Thiamine DVT prophylaxis Social service on case More recommendation per clinical course This medical document was created using an electronic medical record system with [employer] dictation system. Although this document has been carefully reviewed, there may still be some phonetic and typographical errors. These areas are purely typographical due to imperfections of the software programs, and do not reflect any compromise in the patient's medical care Prognosis poor Dietary Evaluation Review Comments: 1) Ensure Enlive 240ml BID 2) Continue current plan of care Expected Outcomes/Goals: Pt will meet >75% estimated needs Fu 3-5 days Plan discussed with: Patient, Other YARELIS GARCIA MD Jun 06, 2024 16:48
[2024-06-06 17:00] VITALS: BP 123/55; PULSE 66; RESP 18; TEMP 97.8; O2SAT 98
[2024-06-06 20:00] VITALS: PULSE 62
[2024-06-07 08:00] VITALS: PULSE 45; PULSE 47
--- NOTE | 2024-06-07 11:17 | DVHPN2 ---
Progress Note - Dictate Date Seen: Jun 07, 2024 Medical Necessity Reason Pt with a Central, PICC or Fol: No vital signs Vital Sign Date Time Temp Pulse Resp B/P (MAP) Pulse Ox O2 Delivery O2 Flow Rate FiO2 06/07/24 08:00 47 Room Air* 0 21 06/06/24 17:00 97.8 18 123/55 (77) 98 97.8 Total Intake and Output 06/06/24 06/06/24 06/07/24 15:00 23:00 07:00 Intake Total 300 ml 600 ml 500 ml Output Total 2175 ml Balance 300 ml -1575 ml 500 ml medications Current Medications Medications Dose Ordered Sig/[place] Route Start Time Stop Time Status Last Admin Dose Admin Acetaminophen 650 mg Q6HP PRN PO 06/02/24 08:00 Nitroglycerin 0.4 mg Q5MINP PRN SL 06/02/24 08:00 Morphine Sulfate 2 mg Q30M PRN IV 06/02/24 08:00 Folic Acid 1 mg DAILY PO 06/05/24 10:00 Thiamine HCl 100 mg DAILY PO 06/05/24 10:00 Cancel Thiamine HCl 100 mg DAILY PO 06/05/24 10:00 Lorazepam 1 mg Q8HPRN PRN IV 06/05/24 12:45 objective General Appearance: alert, no distress HEENT: EOMI, PERRLA, normal external inspect of ears, no icterus, no nasal drainage Neck: no carotid bruit, no jugular venous distention (JVD), no lymphadenopathy Chest: normal thorax Respiratory: clear to auscultation, normal air movement Cardiovascular: regular rate and rhythm, no diastolic murmur, no jugular venous distention (JVD), no rub, no systolic murmur Abdominal: soft, no hepatomegaly, no mass, no splenomegaly, no tenderness Genitourinary: grossly normal external Musculoskeletal: no joint tenderness, no swelling Extremities: normal pulses, no calf tenderness, no clubbing, no cyanosis, no edema Skin: no bruising, no jaundice, no rash Neurological: alert, No focal deficit laboratory and microbiology Laboratory Tests 06/03/24 08:28 Test 06/03/24 08:28 Range/Units Serum Glucose 78 74-106 mg/dL Problem List 1. acute toxic encephalopathy pending UDS, neurology consults, supportive care, IVF 2. Polysubstance abuse Monitor, PPI 3. Bradycardic Monitor, 4. EtOH abuse Educate Assessment/Plan Subjective: Patient is awake and alert. Objective: Patient is now more conversive after previously being catatonic. Diagnosed with acute toxic encephalopathy. Positive for methamphetamines. History of alcohol abuse. MRI of the brain and CT of the head showed no acute findings. Patient is also bradycardic. Refusing to wear residential monitor. Repeat tele-psych evaluation is in progress today. Known history of schizophrenia. Patient is unsure of current medications. business services analyst consult placed due to homelessness. Patient reported previously living with his mother and cousin but could not recall further details, citing poor memory. Plan: Continue psychiatric evaluation. Encourage compliance with telemetry monitoring. Monitor vital signs. Social work to assist with discharge planning and housing resources. Dietary Evaluation Review Comments: 1) Ensure Enlive 240ml BID 2) Continue current plan of care Expected Outcomes/Goals: Pt will meet >75% estimated needs Fu 3-5 days Plan discussed with: Patient, Other DOMENIC VU SENIOR FIREWALL ENGINEER Jun 07, 2024 11:17
[2024-06-07 13:00] VITALS: BP 115/53; PULSE 62; RESP 16
--- NOTE | 2024-06-07 14:54 | DVHINCON2 ---
Date of service: Jun 07, 2024 History of Present Illness HPI Patient is a 28-year-old gentleman who originally presented to the hospital on June 01, 2024 for altered level of consciousness. Reportedly the patient was standing/staring in a gas station for around 1 hour. While being evaluated in the hospital/telemetry, the patient was being followed by Neurology and primary team. It seems that it has been determined that the patient does have history of schizophrenia/bipolar? Patient also has history of alcohol/methamphetamine/marijuana abuse. Since admission, the assessment has been toxic/metabolic encephalopathy. Reportedly the patient had remained catatonic on the floor for a while. While being managed on telemetry, the patient was found to have sinus bradycardia and Cardiology was called for its evaluation and management (on June 07, 2024). It is of note that the patient was seen by me in August 2023 when he was also evaluated for sinus bradycardia and was determined not to have significant arrhythmia. At that point suggestion was to observe and to have long-term monitor as outpatient. Patient never came for cardiology follow-up as outpatient. It is of note that when I came to see the patient, the patient is standing up and not talking. He refuses to answer any question. Even when he was asked his name he only showed his name tag on the rest and refused to talk. He has been refusing tele monitoring for awhile. He refuses physical exam. He is eating snacks. Home Meds Reported Medications Risperidone (Risperidone) 2 Mg Tab, 1 TAB PO BID, #30 TAB 1 Refill 06/02/24 Hydroxyzine HCl (Hydroxyzine Hydrochloride) 50 Mg Tab, 50 MG PO BID, TAB 06/02/24 Valproic Acid (Valproic Acid) 250 Mg Cap, 500 MG PO TID, CAP 06/02/24 Risperidone (Risperidone) 2 Mg Tab, 1 TAB PO QPM, #30 TAB 1 Refill 06/02/24 Past Medical History Others Reportedly the patient has history of substance abuse (alcohol/meth/marijuana/tobacco). He does have history of sinus bradycardia which was previously considered nonsignificant. Reportedly he has schizophrenia/bipolar? Does have history of noncompliance Patient Family History: Patient reports no known family medical history. Smoker: Positive Alocohol: Moderate Drugs: Marijuana, Amphetimines Review of Systems All Other Systems 14 point review of system was performed. Relevant findings as per above and as per HPI. Otherwise negative. H&P Exam Vital Signs Vital Signs Date Time Temp Pulse Resp B/P (MAP) Pulse Ox O2 Delivery O2 Flow Rate FiO2 06/07/24 13:00 62 16 115/53 (73) 06/07/24 08:00 Room Air* 0 21 06/06/24 17:00 97.8 98 97.8 Labs/Xrays Labs Test 06/03/24 08:28 06/03/24 00:48 06/01/24 17:02 06/01/24 15:30 Range/Units White Blood Count 5.2 # 4.4-10.8 10^3/uL Red Blood Count 4.57 4.5-5.90 10^6/uL Hemoglobin 14.3 13.5-17.5 g/dL Hematocrit 41.6 41.0-53.0 % Mean Corpuscular Volume 91.0 80.0-100.0 fL Mean Corpuscular Hemoglobin 31.2 28.0-32.0 pg Mean Corpuscular Hemoglobin Concent 34.3 32.0-36.0 g/dL Red Cell Distribution Width 13.5 11.8-14.3 % Platelet Count 183 140-450 10^3/uL Mean Platelet Volume 9.0 6.9-10.8 fL Neutrophils (%) (Auto) 51.6 37.0-80.0 % Lymphocytes (%) (Auto) 36.7 10.0-50.0 % Monocytes (%) (Auto) 7.3 0.0-12.0 % Eosinophils (%) (Auto) 3.7 0.0-7.0 % Basophils (%) (Auto) 0.7 0.0-2.0 % Neutrophils # (Auto) 2.7 1.6-8.6 10 ^3/uL Lymphocytes # (Auto) 1.9 0.4-5.4 10 ^3/uL Monocytes # (Auto) 0.4 0-1.3 10 ^3/uL Eosinophils # (Auto) 0.2 0-0.8 10 ^3/uL Basophils # (Auto) 0 0-0.2 10 ^3/uL Nucleated Red Blood Cells 0.2 % Sodium Level 141 136-145 mmol/L Potassium Level 3.6 3.5-5.1 mmol/L Chloride Level 107 98-107 mmol/L Carbon Dioxide Level 25 20-31 mmol/L Anion Gap 9 5-15 Blood Urea Nitrogen 8 L 9-23 mg/dL Creatinine 0.74 0.700-1.30 mg/dL Glomerular Filtration Rate Calc 127 >90 mL/min BUN/Creatinine Ratio 10.8 10.0-20.0 Serum Glucose 78 74-106 mg/dL Calcium Level 8.8 8.7-10.4 mg/dL Urine Color Yellow Yellow Urine Clarity Clear Clear Urine pH 6.0 5.0-9.0 Urine Specific [place] 1.035 1.001-1.035 Urine Protein Trace H Negative Urine Ketones 1+ H Negative Urine Blood Negative Negative /uL Urine Nitrite Negative Negative Urine Bilirubin Negative Negative Urine Urobilinogen Normal Negative mg/dL Urine Leukocyte Esterase Negative Negative /uL Urine RBC 2 0 - 3 /hpf Urine Microscopic WBC 3 0-3 /HPF Urine Squamous Epithelial Cells Few <5 /hpf Urine Bacteria None seen None Seen /hpf Urine Mucus Few None Seen Urine Glucose Normal Normal mg/dL Urine Opiates Screen Neg NEGATIVE Urine Fentanyl Screen Neg NEGATIVE Urine Barbiturates Screen Neg NEGATIVE Urine Phencyclidine Screen Neg NEGATIVE Urine Amphetamines Screen Pos NEGATIVE Urine Benzodiazepines Screen Neg NEGATIVE Urine Cocaine Screen Neg NEGATIVE Urine Cannabinoids Screen Neg NEGATIVE POC Glucose 70 70-106 mg/dl Total Bilirubin 1.1 H 0.2-1.0 mg/dL Aspartate Amino Transferase (AST) 31 13-40 U/L Alanine Aminotransferase (ALT) 22 7-40 U/L Alkaline Phosphatase 61 46-116 U/L Total Protein 7.1 5.7-8.2 g/dL Albumin 4.7 3.2-4.8 g/dL Plasma/Serum Blood Alcohol 4.7 <10 mg/dL Assessment/Plan Plan Patient is a 28-year-old gentleman who originally presented to the hospital on June 01, 2024 for altered level of consciousness. Reportedly the patient was standing/staring in a gas station for around 1 hour. While being evaluated in the hospital/telemetry, the patient was being followed by Neurology and primary team. It seems that it has been determined that the patient does have history of schizophrenia/bipolar? Patient also has history of alcohol/methamphetamine/marijuana abuse. Since admission, the assessment has been toxic/metabolic encephalopathy. Reportedly the patient had remained catatonic on the floor for a while. While being managed on telemetry, the patient was found to have sinus bradycardia and Cardiology was called for its evaluation and management (on June 07, 2024). It is of note that the patient was seen by me in August 2023 when he was also evaluated for sinus bradycardia and was determined not to have significant arrhythmia. At that point suggestion was to observe and to have long-term monitor as outpatient. Patient never came for cardiology follow-up as outpatient. It is of note that when I came to see the patient, the patient is standing up and not talking. He refuses to answer any question. Even when he was asked his name he only showed his name tag on the rest and refused to talk. He has been refusing tele monitoring for awhile. He refuses physical exam. He is eating snacks. No JVD. Mucosa is pink. Refuses complete physical exam. Reportedly the patient has history of substance abuse (alcohol/meth/marijuana/tobacco). He does have history of sinus bradycardia which was previously considered nonsignificant. Reportedly he has schizophrenia/bipolar? Does have history of noncompliance Echocardiogram of August 16, 2023 had reported ejection fraction of 73%, no wall motion abnormality, normal diastolic and no valvular disease Urine toxicology was positive for amphetamine/alcohol CT of the head reported: MRI of the brain reported: Patient is a 28-year-old gentleman who presented with altered level of consciousness. Presentation was not considered cardiac on presentation. Presentation is in favor of encephalopathy/metabolic versus toxic. He is known to have minor sinus bradycardia from before. No recent thyroid function tests has been performed. Patient does have history of noncompliance/schizophrenia versus bipolar which limits he has evaluation. On examination, the patient is not in acute distress and is standing up and not in acute distress. Bradycardia, sinus Encephalopathy, toxic versus metabolic Polysubstance abuse Noncompliance to medication/evaluation/physical exam Cardiac suggestion for management: Manage in a monitoring bed Follow-up electrolytes and kidney function tests and correct abnormalities. Keep potassium above 4 and magnesium above 2 No indication for pacemaker at this point Request for EKG Request for echocardiogram Chest x-ray Request for thyroid function tests and BNP Avoid AV ryan blocking agents for now Lifestyle and risk factor modifications Consider psych evaluation Evaluation and management for substance abuse as per primary team Further evaluation and management depends on the above and clinical course A total of 75 minutes was spent reviewing the patient record, examining the patient, making a diagnostic and therapeutic plan, discussing this plan with medical personnel, following up on diagnostic studies and following the patient for clinical stability excluding any and all procedures. At least 50% of this time was spent in direct, [id number] contact. Thank you for allowing me to participate in this patient's care. Further recommendations will depend on patient's clinical course. Please do not hesitate to contact me if you have any questions or concerns. This medical document was created using electronic medical record system with [employer] computerized dictation system. Although this document has been carefully reviewed, there may still be some phonetic and typographical errors. These areas are purely typographical due to the imperfection of the software programs, and do not reflect any compromise in the patient's medical care. Plan discussed with: Patient, Other (nurse) JARRETT LOPEZ MD Jun 07, 2024 14:54
--- NOTE | 2024-06-07 15:57 | DVH ---
EXAM: XR Chest, 1 View CLINICAL INDICATION: BRADYCARDIA TECHNIQUE: Frontal view of the chest. COMPARISON: XY CHEST PORTABLE on DOS: 04/23/24, XY CHEST XRAY 1 VIEW on DOS: 04/14/24, XY CHEST PORTAB LE on DOS: 12/15/23, XY CHEST PORTABLE on DOS: 08/15/23 FINDINGS: LUNGS AND PLEURAL SPACES: Unremarkable. No consolidation. No pneumothorax. HEART: Unremarkable. No cardiomegaly. MEDIASTINUM: Unremarkable. Normal mediastinal contour. BONES/JOINTS: Unremarkable. No acute fracture. OTHER FINDINGS: . None. IMPRESSION: No acute cardiopulmonary process.
[2024-06-07 16:29] LABS: Chloride 106 mmol/L (98-107); Potassium 3.7 mmol/L (3.5-5.1); Sodium 142 mmol/L (136-145)
[2024-06-07 16:30] LABS: Anion Gap 7 (5-15); Calcium 9.1 mg/dL (8.7-10.4); Carbon Dioxide 29 mmol/L (20-31)
[2024-06-07 16:38] LABS: BUN/Creatinine Ratio 6.3 (10.0-20.0); Blood Urea Nitrogen < 5 mg/dL (9-23); Glucose 112 mg/dL (74-106)
--- NOTE | 2024-06-07 17:32 | DVHINCON2 ---
Date of Service if different f: Jun 07, 2024 Consultation ([facility]) Consulting Physician: JARRETT LOPEZ MD Labs Laboratory Tests Test 06/01/24 15:30 06/01/24 17:02 06/03/24 00:48 06/03/24 08:28 Total Bilirubin 1.1 mg/dL (0.2-1.0) Aspartate Amino Transf (AST/SGOT) 31 U/L (13-40) Alanine Aminotransferase (ALT/SGPT) 22 U/L (7-40) Alkaline Phosphatase 61 U/L (46-116) Total Protein 7.1 g/dL (5.7-8.2) Albumin 4.7 g/dL (3.2-4.8) Plasma/Serum Blood Alcohol 4.7 mg/dL (<10) Bedside Glucose 70 mg/dl (70-106) Urine Color Yellow (Yellow) Urine Clarity Clear (Clear) Urine pH 6.0 (5.0-9.0) Urine Specific Declo 1.035 (1.001-1.035) Urine Protein Trace (Negative) Urine Ketones 1+ (Negative) Urine Blood Negative /uL (Negative) Urine Nitrite Negative (Negative) Urine Bilirubin Negative (Negative) Urine Urobilinogen Normal mg/dL (Negative) Urine Leukocyte Esterase Negative /uL (Negative) Urine RBC 2 /hpf (0 - 3) Urine Microscopic WBC 3 /HPF (0-3) Urine Squamous Epithelial Cells Few /hpf (<5) Urine Bacteria None seen /hpf (None Seen) Urine Mucus Few (None Seen) Urine Glucose Normal mg/dL (Normal) Urine Opiates Screen Neg (NEGATIVE) Urine Fentanyl Screen Neg (NEGATIVE) Urine Barbiturates Screen Neg (NEGATIVE) Urine Phencyclidine Screen Neg (NEGATIVE) Urine Amphetamines Screen Pos (NEGATIVE) Urine Benzodiazepines Screen Neg (NEGATIVE) Urine Cocaine Screen Neg (NEGATIVE) Urine Cannabinoids Screen Neg (NEGATIVE) White Blood Count 5.2 10^3/uL (4.4-10.8) Red Blood Count 4.57 10^6/uL (4.5-5.90) Hemoglobin 14.3 g/dL (13.5-17.5) Hematocrit 41.6 % (41.0-53.0) Mean Corpuscular Volume 91.0 fL (80.0-100.0) Mean Corpuscular Hemoglobin 31.2 pg (28.0-32.0) Mean Corpuscular Hemoglobin Concent 34.3 g/dL (32.0-36.0) Red Cell Distribution Width 13.5 % (11.8-14.3) Platelet Count 183 10^3/uL (140-450) Mean Platelet Volume 9.0 fL (6.9-10.8) Neutrophils (%) (Auto) 51.6 % (37.0-80.0) Lymphocytes (%) (Auto) 36.7 % (10.0-50.0) Monocytes (%) (Auto) 7.3 % (0.0-12.0) Eosinophils (%) (Auto) 3.7 % (0.0-7.0) Basophils (%) (Auto) 0.7 % (0.0-2.0) Neutrophils # (Auto) 2.7 10 ^3/uL (1.6-8.6) Lymphocytes # (Auto) 1.9 10 ^3/uL (0.4-5.4) Monocytes # (Auto) 0.4 10 ^3/uL (0-1.3) Eosinophils # (Auto) 0.2 10 ^3/uL (0-0.8) Basophils # (Auto) 0 10 ^3/uL (0-0.2) Nucleated Red Blood Cells 0.2 % Test 06/07/24 16:03 Sodium Level 142 mmol/L (136-145) Potassium Level 3.7 mmol/L (3.5-5.1) Chloride Level 106 mmol/L (98-107) Carbon Dioxide Level 29 mmol/L (20-31) Anion Gap 7 (5-15) Blood Urea Nitrogen < 5 mg/dL (9-23) Creatinine 0.80 mg/dL (0.700-1.30) Glomerular Filtration Rate Calc 124 mL/min (>90) BUN/Creatinine Ratio 6.3 (10.0-20.0) Serum Glucose 112 mg/dL (74-106) Calcium Level 9.1 mg/dL (8.7-10.4) Thyroid Stimulating Hormone (TSH) 0.87 uIU/mL (0.55-4.78) Appetite: Fair Appearance: Stated age Psychomotor activity: Lethargic Behavioral: [place], Withdrawn Eye contact: Avoids Speech: Soft, Mute, Confused Affect: Blunted Mood: Neutral, Other Thought processes: Preservative Thought content: Paucity of thoughts Suicidal ideations: Absent Homicidal ideations: Absent Orientation: Person, Place, Confused Memory intact: Poor Intellect: Marginal Abstractability: [place] Concentration: Poor Attention: Poor Judgement: Poor Insight: Marginal Vitals Vital Signs Date Time Temp Pulse Resp B/P (MAP) Pulse Ox O2 Delivery O2 Flow Rate FiO2 06/07/24 13:00 62 16 115/53 (73) 06/07/24 08:00 Room Air* 0 21 06/06/24 17:00 97.8 98 97.8 Current medications Current Medications Medications Dose Ordered Sig/[place] Route Start Time Stop Time Status Last Admin Dose Admin Acetaminophen 650 mg Q6HP PRN PO 06/02/24 08:00 Nitroglycerin 0.4 mg Q5MINP PRN SL 06/02/24 08:00 Morphine Sulfate 2 mg Q30M PRN IV 06/02/24 08:00 Folic Acid 1 mg DAILY PO 06/05/24 10:00 Thiamine HCl 100 mg DAILY PO 06/05/24 10:00 Cancel Thiamine HCl 100 mg DAILY PO 06/05/24 10:00 Lorazepam 1 mg Q8HPRN PRN IV 06/05/24 12:45 Treatment plan discussed: With staff, Family Diagnosis: unspecified schizophrenia Plan : this is a 28-year-old with hx of polysubstance use and psychosis, pr esently he does not have a viable self-care plan, does not appear safe to discharge. Recommend 5150hold for GD and inpatient psychiatric transfer for stabilization and treatment. Recommend Risperdal 1mg po qhs, titrate to 1mg po BID History of Present Illness Reason for Consult : altered mental status, refusing to answer questions or comply with treatment HPI : This is a 28-year-old male BIB ambulance after being found at gas station staring blankly for over one hour. Patient is evaluated via telepsychiatry. He is selectively mute, difficulty focusing and answering questions. He reports being unable to recall why he is hospitalized or events leading here. He is appears preoccupied with thought delays, but he denies auditory/visual hallucinations or paranoid thoughts. He also denies suicidal/homicidal ideation. He denies feeling depressed. He often answers I dont know, such as if has prior inpatient psych admissions or prior mental health diagnosis. History is obtained from mother Past Psychiatric History : Per mom, he has hx of schizophrenia diagnosis one year ago. She reports long history of using meth, disappearing and noncompliance to his medications. Mom reports prior use of Risperdal but would refuse to use after mental health discharge. Mom reports prior 5150holds and inpatient psych admissions. Patient denies prior suicide attempts. he does not have current outpatient follow up Past Medical History : He denies. Cardio consult for bradycardia. Social History : He is homeless, mom also does not have her own housing currently. He was allowed to stay with mom's friend but he would disappear after a couple of days. Mom denies any known family history. Patient with hx of methamphetamine, marijuana and alcohol use. Toxicology was positive for amphetamine on admission. He is not , unemployed. He does not receive any government benefits. When asked how he would care for himself, replies " i dont know" [facility] Jun 07, 2024 17:32
--- NOTE | 2024-06-08 07:07 | DVHPN2 ---
Progress Note - Dictate Date Seen: Jun 08, 2024 Medical Necessity Reason Pt with a Central, PICC or Fol: No vital signs Vital Sign Date Time Temp Pulse Resp B/P (MAP) Pulse Ox O2 Delivery O2 Flow Rate FiO2 06/07/24 20:00 Room Air* 0 21 06/07/24 13:00 62 16 115/53 (73) 06/06/24 17:00 97.8 98 97.8 Total Intake and Output 06/07/24 06/07/24 06/08/24 15:00 23:00 07:00 Intake Total 500 ml 1200 ml Output Total 1000 ml 400 ml Balance -500 ml 800 ml medications Current Medications Medications Dose Ordered Sig/[place] Route Start Time Stop Time Status Last Admin Dose Admin Acetaminophen 650 mg Q6HP PRN PO 06/02/24 08:00 Nitroglycerin 0.4 mg Q5MINP PRN SL 06/02/24 08:00 Morphine Sulfate 2 mg Q30M PRN IV 06/02/24 08:00 Folic Acid 1 mg DAILY PO 06/05/24 10:00 Thiamine HCl 100 mg DAILY PO 06/05/24 10:00 Cancel Thiamine HCl 100 mg DAILY PO 06/05/24 10:00 Lorazepam 1 mg Q8HPRN PRN IV 06/05/24 12:45 laboratory and microbiology Laboratory Tests 06/07/24 16:03 06/03/24 08:28 Test 06/07/24 16:03 Range/Units Serum Glucose 112 H 74-106 mg/dL Assessment/Plan Patient is a 28-year-old gentleman who originally presented to the hospital on June 01, 2024 for altered level of consciousness. Reportedly the patient was standing/staring in a gas station for around 1 hour. While being evaluated in the hospital/telemetry, the patient was being followed by Neurology and primary team. It seems that it has been determined that the patient does have history of schizophrenia/bipolar? Patient also has history of alcohol/methamphetamine/marijuana abuse. Since admission, the assessment has been toxic/metabolic encephalopathy. Reportedly the patient had remained catatonic on the floor for a while. While being managed on telemetry, the patient was found to have sinus bradycardia and Cardiology was called for its evaluation and management (on June 07, 2024). It is of note that the patient was seen by me in August 2023 when he was also evaluated for sinus bradycardia and was determined not to have significant arrhythmia. At that point suggestion was to observe and to have long-term monitor as outpatient. Patient never came for cardiology follow-up as outpatient. It is of note that when I came to see the patient, the patient is standing up and not talking. He refuses to answer any question. Even when he was asked his name he only showed his name tag on the rest and refused to talk. He has been refusing tele monitoring for awhile. He refuses physical exam. He is eating snacks. No JVD. Mucosa is pink. Refuses complete physical exam. In limited exam: [place] is around 70s Reportedly the patient has history of substance abuse (alcohol/meth/marijuana/tobacco). He does have history of sinus bradycardia which was previously considered nonsignificant. Reportedly he has schizophrenia/bipolar? Does have history of noncompliance Echocardiogram of August 16, 2023 had reported ejection fraction of 73%, no wall motion abnormality, normal diastolic and no valvular disease TSH: 0.87 Urine toxicology was positive for amphetamine/alcohol Chest xry revealed: IMPRESSION: No acute cardiopulmonary process. CT of the head reported: IMPRESSION: No acute intracranial findings. MRI of the brain reported: IMPRESSION: 1. Unremarkable noncontrast MRI brain. Patient is a 28-year-old gentleman who presented with altered level of consciousness. Presentation was not considered cardiac on presentation. Presentation is in favor of encephalopathy/metabolic versus toxic. He is known to have minor sinus bradycardia from before. No recent thyroid function tests has been performed. Patient does have history of noncompliance/schizophrenia versus bipolar which limits he has evaluation. On examination, the patient is not in acute distress. Bradycardia, sinus Encephalopathy, toxic versus metabolic Polysubstance abuse Noncompliance to medication/evaluation/physical exam Cardiac suggestion for management: Manage on Tele Follow-up electrolytes and kidney function tests and correct abnormalities. Keep potassium above 4 and magnesium above 2 No indication for pacemaker at this point Request for EKG Request for Echocardiogram Avoid AV ryan blocking agents for now Lifestyle and risk factor modifications Consider psych evaluation Evaluation and management for substance abuse as per primary team Further evaluation and management depends on the above and clinical course A total of 55 minutes was spent reviewing the patient record, examining the patient, making a diagnostic and therapeutic plan, discussing this plan with medical personnel, following up on diagnostic studies and following the patient for clinical stability excluding any and all procedures. At least 50% of this time was spent in direct, [id number] contact. Thank you for allowing me to participate in this patient's care. Further recommendations will depend on patient's clinical course. Please do not hesitate to contact me if you have any questions or concerns. This medical document was created using electronic medical record system with [employer]ency computerized dictation system. Although this document has been carefully reviewed, there may still be some phonetic and typographical errors. These areas are purely typographical due to the imperfection of the software programs, and do not reflect any compromise in the patient's medical care. Dietary Evaluation Review Comments: 1) Ensure Enlive 240ml BID 2) Continue current plan of care Expected Outcomes/Goals: Pt will meet >75% estimated needs Fu 3-5 days Plan discussed with: Other (nurse) JARRETT LOPEZ MD Jun 08, 2024 07:07
--- NOTE | 2024-06-08 09:22 | DVHPN2 ---
Progress Note - Dictate Date Seen: Jun 08, 2024 Medical Necessity Reason Pt with a Central, PICC or Fol: No vital signs Vital Sign Date Time Temp Pulse Resp B/P (MAP) Pulse Ox O2 Delivery O2 Flow Rate FiO2 06/07/24 20:00 Room Air* 0 21 06/07/24 13:00 62 16 115/53 (73) 06/06/24 17:00 97.8 98 97.8 Total Intake and Output 06/07/24 06/07/24 06/08/24 15:00 23:00 07:00 Intake Total 500 ml 1200 ml Output Total 1000 ml 400 ml Balance -500 ml 800 ml medications Current Medications Medications Dose Ordered Sig/[place] Route Start Time Stop Time Status Last Admin Dose Admin Acetaminophen 650 mg Q6HP PRN PO 06/02/24 08:00 Nitroglycerin 0.4 mg Q5MINP PRN SL 06/02/24 08:00 Morphine Sulfate 2 mg Q30M PRN IV 06/02/24 08:00 Folic Acid 1 mg DAILY PO 06/05/24 10:00 Thiamine HCl 100 mg DAILY PO 06/05/24 10:00 Cancel Thiamine HCl 100 mg DAILY PO 06/05/24 10:00 Lorazepam 1 mg Q8HPRN PRN IV 06/05/24 12:45 objective General Appearance: alert, no distress HEENT: EOMI, PERRLA, normal external inspect of ears, no icterus, no nasal drainage Neck: no carotid bruit, no jugular venous distention (JVD), no lymphadenopathy Chest: normal thorax Respiratory: clear to auscultation, normal air movement Cardiovascular: regular rate and rhythm, no diastolic murmur, no jugular venous distention (JVD), no rub, no systolic murmur Abdominal: soft, no hepatomegaly, no mass, no splenomegaly, no tenderness Genitourinary: grossly normal external Musculoskeletal: no joint tenderness, no swelling Extremities: normal pulses, no calf tenderness, no clubbing, no cyanosis, no edema Skin: no bruising, no jaundice, no rash Neurological: alert, No focal deficit laboratory and microbiology Laboratory Tests 06/07/24 16:03 06/03/24 08:28 Test 06/07/24 16:03 Range/Units Serum Glucose 112 H 74-106 mg/dL Problem List 1. acute toxic encephalopathy pending UDS, neurology consults, supportive care, IVF 2. Polysubstance abuse Monitor, PPI 3. Bradycardic Monitor, 4. EtOH abuse Educate Assessment/Plan Subjective Patient is awake and alert x 1. Objective Patient is answering some questions. Patient appears to be paranoid. He does have a history of schizophrenia. Patient has not been compliant with medical evaluation. He has been refusing echocardiogram and EKG monitoring. Patient does have bradycardia. Patient was seen by cardiology. Patient has a history of poly substance abuse. Patient refused his thiamin and folic acid. Patient did deny that he is a current alcohol user. Patient was positive for methamphetamines. Plan Continue current treatment. Continue to encourage patient to be compliant with medical care. Patient will need a repeat psychiatry evaluation to determine if patient can make his own decisions. Mother will be at bedside today. business services administrator consult for homelessness. Dietary Evaluation Review Comments: 1) Ensure Enlive 240ml BID 2) Continue current plan of care Expected Outcomes/Goals: Pt will meet >75% estimated needs Fu 3-5 days Plan discussed with: Patient, Other DOMENIC VU NP Jun 08, 2024 09:21
[2024-06-08 13:00] VITALS: BP 108/48; PULSE 54; RESP 18; TEMP 97.9; O2SAT 96
[2024-06-08 21:00] VITALS: BP 130/80; PULSE 70; RESP 18; TEMP 98.3; O2SAT 98
--- NOTE | 2024-06-09 06:41 | DVHPN2 ---
Progress Note - Dictate Date Seen: Jun 09, 2024 Medical Necessity Reason Pt with a Central, PICC or Fol: No vital signs Vital Sign Date Time Temp Pulse Resp B/P (MAP) Pulse Ox O2 Delivery O2 Flow Rate FiO2 06/08/24 21:00 98.3 70 18 130/80 (97) 98 98.3 06/08/24 20:00 Room Air* 0 21 Total Intake and Output 06/08/24 06/08/24 06/09/24 14:59 22:59 06:59 Intake Total 280 ml 250 ml Output Total 950 ml Balance -670 ml 250 ml medications Current Medications Medications Dose Ordered Sig/[place] Route Start Time Stop Time Status Last Admin Dose Admin Acetaminophen 650 mg Q6HP PRN PO 06/02/24 08:00 Nitroglycerin 0.4 mg Q5MINP PRN SL 06/02/24 08:00 Morphine Sulfate 2 mg Q30M PRN IV 06/02/24 08:00 Folic Acid 1 mg DAILY PO 06/05/24 10:00 Thiamine HCl 100 mg DAILY PO 06/05/24 10:00 Cancel Thiamine HCl 100 mg DAILY PO 06/05/24 10:00 Lorazepam 1 mg Q8HPRN PRN IV 06/05/24 12:45 laboratory and microbiology Laboratory Tests 06/07/24 16:03 06/03/24 08:28 Test 06/07/24 16:03 Range/Units Serum Glucose 112 H 74-106 mg/dL Assessment/Plan Patient is a 28-year-old gentleman who originally presented to the hospital on June 01, 2024 for altered level of consciousness. Reportedly the patient was standing/staring in a gas station for around 1 hour. While being evaluated in the hospital/telemetry, the patient was being followed by Neurology and primary team. It seems that it has been determined that the patient does have history of schizophrenia/bipolar? Patient also has history of alcohol/methamphetamine/marijuana abuse. Since admission, the assessment has been toxic/metabolic encephalopathy. Reportedly the patient had remained catatonic on the floor for a while. While being managed on telemetry, the patient was found to have sinus bradycardia and Cardiology was called for its evaluation and management (on June 07, 2024). It is of note that the patient was seen by me in August 2023 when he was also evaluated for sinus bradycardia and was determined not to have significant arrhythmia. At that point suggestion was to observe and to have long-term monitor as outpatient. Patient never came for cardiology follow-up as outpatient. It is of note that when I came to see the patient, the patient is standing up and not talking. He refuses to answer any question. Even when he was asked his name he only showed his name tag on the rest and refused to talk. He has been refusing tele monitoring for awhile. He refuses physical exam. He is eating snacks. No JVD. Mucosa is pink. Refuses complete physical exam. In limited exam: KS is around 70s Reportedly the patient has history of substance abuse (alcohol/meth/marijuana/tobacco). He does have history of sinus bradycardia which was previously considered nonsignificant. Reportedly he has schizophrenia/bipolar? Does have history of noncompliance Echocardiogram of August 16, 2023 had reported ejection fraction of 73%, no wall motion abnormality, normal diastolic and no valvular disease TSH: 0.87 Urine toxicology was positive for amphetamine/alcohol Chest xry revealed: IMPRESSION: No acute cardiopulmonary process. CT of the head reported: IMPRESSION: No acute intracranial findings. MRI of the brain reported: IMPRESSION: 1. Unremarkable noncontrast MRI brain. Patient is a 28-year-old gentleman who presented with altered level of consciousness. Presentation was not considered cardiac on presentation. Presentation is in favor of encephalopathy/metabolic versus toxic. He is known to have minor sinus bradycardia from before. No recent thyroid function tests has been performed. Patient does have history of noncompliance/schizophrenia versus bipolar which limits he has evaluation. On examination, the patient is not in acute distress. Bradycardia, sinus Encephalopathy, toxic versus metabolic Polysubstance abuse Noncompliance to medication/evaluation/physical exam Cardiac suggestion for management: Manage on Tele Follow-up electrolytes and kidney function tests and correct abnormalities. Keep potassium above 4 and magnesium above 2 No indication for pacemaker at this point Hemodynamically stable Request for EKG Request for Echocardiogram (patient refusing) Avoid AV ryan blocking agents for now Lifestyle and risk factor modifications Consider psych evaluation Evaluation and management for substance abuse as per primary team Further evaluation and management depends on the above and clinical course A total of 55 minutes was spent reviewing the patient record, examining the patient, making a diagnostic and therapeutic plan, discussing this plan with medical personnel, following up on diagnostic studies and following the patient for clinical stability excluding any and all procedures. At least 50% of this time was spent in direct, [id number] contact. Thank you for allowing me to participate in this patient's care. Further recommendations will depend on patient's clinical course. Please do not hesitate to contact me if you have any questions or concerns. This medical document was created using electronic medical record system with [employer] computerized dictation system. Although this document has been carefully reviewed, there may still be some phonetic and typographical errors. These areas are purely typographical due to the imperfection of the software programs, and do not reflect any compromise in the patient's medical care. Dietary Evaluation Review Comments: 1) Ensure Enlive 240ml BID 2) Continue current plan of care Expected Outcomes/Goals: Pt will meet >75% estimated needs Fu 3-5 days Plan discussed with: Other (nurse) JARRETT LOPEZ MD Jun 09, 2024 06:41
--- NOTE | 2024-06-09 12:26 | DVHPN2 ---
Progress Note - Dictate Date Seen: Jun 09, 2024 Medical Necessity Reason Pt with a Central, PICC or Fol: No vital signs Vital Sign Date Time Temp Pulse Resp B/P (MAP) Pulse Ox O2 Delivery O2 Flow Rate FiO2 06/09/24 08:00 Room Air* 0 21 06/08/24 21:00 98.3 70 18 130/80 (97) 98 98.3 Total Intake and Output 06/08/24 06/08/24 06/09/24 15:00 23:00 07:00 Intake Total 280 ml 250 ml Output Total 950 ml Balance -670 ml 250 ml medications Current Medications Medications Dose Ordered Sig/[place] Route Start Time Stop Time Status Last Admin Dose Admin Acetaminophen 650 mg Q6HP PRN PO 06/02/24 08:00 Nitroglycerin 0.4 mg Q5MINP PRN SL 06/02/24 08:00 Morphine Sulfate 2 mg Q30M PRN IV 06/02/24 08:00 Folic Acid 1 mg DAILY PO 06/05/24 10:00 Thiamine HCl 100 mg DAILY PO 06/05/24 10:00 Cancel Thiamine HCl 100 mg DAILY PO 06/05/24 10:00 Lorazepam 1 mg Q8HPRN PRN IV 06/05/24 12:45 objective General Appearance: alert, no distress HEENT: EOMI, PERRLA, normal external inspect of ears, no icterus, no nasal drainage Neck: no carotid bruit, no jugular venous distention (JVD), no lymphadenopathy Chest: normal thorax Respiratory: clear to auscultation, normal air movement Cardiovascular: regular rate and rhythm, no diastolic murmur, no jugular venous distention (JVD), no rub, no systolic murmur Abdominal: soft, no hepatomegaly, no mass, no splenomegaly, no tenderness Genitourinary: grossly normal external Musculoskeletal: no joint tenderness, no swelling Extremities: normal pulses, no calf tenderness, no clubbing, no cyanosis, no edema Skin: no bruising, no jaundice, no rash Neurological: alert, No focal deficit laboratory and microbiology Laboratory Tests 06/07/24 16:03 06/03/24 08:28 Test 06/07/24 16:03 Range/Units Serum Glucose 112 H 74-106 mg/dL Problem List 1. acute toxic encephalopathy pending UDS, neurology consults, supportive care, IVF 2. Polysubstance abuse Monitor, PPI 3. Bradycardic Monitor, 4. EtOH abuse Educate Assessment/Plan Subjective Patient is more awake and alert. Patient is more verbal today. Objective Patient has a history of schizophrenia. He did not cooperate during telepsych consultation. Unable to determine if patient is safe for discharge. Mother wants patient admitted to a psychiatric facility. Plan Reconsult telepsych. Patient states he is agreeable to talk with psychiatry. Continue plan of care. Dietary Evaluation Review Comments: 1) Ensure Enlive 240ml BID 2) Continue current plan of care Expected Outcomes/Goals: Pt will meet >75% estimated needs Fu 3-5 days Plan discussed with: Patient, Other DOMENIC VU [employer] Jun 09, 2024 12:26
[2024-06-09 20:00] VITALS: RESP 16
--- NOTE | 2024-06-10 09:13 | DVHPN2 ---
Progress Note - Dictate Date Seen: Jun 10, 2024 Medical Necessity Reason Pt with a Central, PICC or Fol: No vital signs Vital Sign Date Time Temp Pulse Resp B/P (MAP) Pulse Ox O2 Delivery O2 Flow Rate FiO2 06/09/24 20:00 16 Room Air* 0 21 06/08/24 21:00 98.3 70 130/80 (97) 98 98.3 Total Intake and Output 06/09/24 06/09/24 06/10/24 15:00 23:00 07:00 Intake Total 300 ml 200 ml Balance 300 ml 200 ml medications Current Medications Medications Dose Ordered Sig/[place] Route Start Time Stop Time Status Last Admin Dose Admin Acetaminophen 650 mg Q6HP PRN PO 06/02/24 08:00 Nitroglycerin 0.4 mg Q5MINP PRN SL 06/02/24 08:00 Morphine Sulfate 2 mg Q30M PRN IV 06/02/24 08:00 Folic Acid 1 mg DAILY PO 06/05/24 10:00 Thiamine HCl 100 mg DAILY PO 06/05/24 10:00 Cancel Thiamine HCl 100 mg DAILY PO 06/05/24 10:00 Lorazepam 1 mg Q8HPRN PRN IV 06/05/24 12:45 objective General Appearance: alert, no distress HEENT: EOMI, PERRLA, normal external inspect of ears, no icterus, no nasal drainage Neck: no carotid bruit, no jugular venous distention (JVD), no lymphadenopathy Chest: normal thorax Respiratory: clear to auscultation, normal air movement Cardiovascular: regular rate and rhythm, no diastolic murmur, no jugular venous distention (JVD), no rub, no systolic murmur Abdominal: soft, no hepatomegaly, no mass, no splenomegaly, no tenderness Genitourinary: grossly normal external Musculoskeletal: no joint tenderness, no swelling Extremities: normal pulses, no calf tenderness, no clubbing, no cyanosis, no edema Skin: no bruising, no jaundice, no rash Neurological: alert, No focal deficit laboratory and microbiology Laboratory Tests 06/07/24 16:03 06/03/24 08:28 Test 06/07/24 16:03 Range/Units Serum Glucose 112 H 74-106 mg/dL Problem List 1. acute toxic encephalopathy pending UDS, neurology consults, supportive care, IVF 2. Polysubstance abuse Monitor, PPI 3. Bradycardic Monitor, 4. EtOH abuse Educate Assessment/Plan Subjective: Patient is awake and alert. Objective: Patient is becoming more conversive. Patients mother Antonina was updated regarding the plan of care. multicultural services librarian has been consulted for placement at a psychiatric facility. Tele-psych consult was reconciled now that the patient is more verbal and communicative. Plan: Continue current treatment. Encourage patient to take risperidone as ordered. Plan for transfer to a psychiatric facility once a bed becomes available. Dietary Evaluation Review Comments: 1) Ensure Enlive 240ml BID 2) Continue current plan of care Expected Outcomes/Goals: Pt will meet >75% estimated needs Fu 3-5 days Plan discussed with: Patient, Other DOMENIC VU [employer] Jun 10, 2024 09:13
[2024-06-10] MEDS: risperiDONE 1 MG TAB PO SCH (10:00)
--- NOTE | 2024-06-10 14:51 | DVHPN2 ---
Progress Note - Dictate Date Seen: Jun 10, 2024 Medical Necessity Reason Pt with a Central, PICC or Fol: No vital signs Vital Sign Date Time Temp Pulse Resp B/P (MAP) Pulse Ox O2 Delivery O2 Flow Rate FiO2 06/10/24 08:00 Room Air* 0 21 06/09/24 20:00 16 06/08/24 21:00 98.3 70 130/80 (97) 98 98.3 Total Intake and Output 06/09/24 06/09/24 06/10/24 15:00 23:00 07:00 Intake Total 300 ml 200 ml Balance 300 ml 200 ml medications Current Medications Medications Dose Ordered Sig/[place] Route Start Time Stop Time Status Last Admin Dose Admin Acetaminophen 650 mg Q6HP PRN PO 06/02/24 08:00 Nitroglycerin 0.4 mg Q5MINP PRN SL 06/02/24 08:00 Morphine Sulfate 2 mg Q30M PRN IV 06/02/24 08:00 Thiamine HCl 100 mg DAILY PO 06/05/24 10:00 Cancel Lorazepam 1 mg Q8HPRN PRN IV 06/05/24 12:45 Risperidone 2 mg BID PO 06/10/24 10:00 laboratory and microbiology Laboratory Tests 06/07/24 16:03 06/03/24 08:28 Test 06/07/24 16:03 Range/Units Serum Glucose 112 H 74-106 mg/dL Assessment/Plan Patient is a 28-year-old male who originally presented to the hospital on June 01, 2024 for altered level of consciousness. Reportedly the patient was standing/staring in a gas station for around 1 hour. While being evaluated in the hospital/telemetry, the patient was being followed by Neurology and primary team. It seems that it has been determined that the patient does have history of schizophrenia/bipolar? Patient also has history of alcohol/methamphetamine/marijuana abuse. Since admission, the assessment has been toxic/metabolic encephalopathy. Reportedly the patient had remained catatonic on the floor for a while. While being managed on telemetry, the patient was found to have sinus bradycardia and Cardiology was called for its evaluation and management (on June 07, 2024). It is of note that the patient was seen by me in August 2023 when he was also evaluated for sinus bradycardia and was determined not to have significant arrhythmia. At that point suggestion was to observe and to have long-term monitor as outpatient. Patient never came for cardiology follow-up as outpatient. It is of note that when I came to see the patient, the patient is standing up and not talking. He denies chest pain, shortness of breath or palpitations. Sitter remains at bedside. He has been refusing tele monitoring. He refuses physical exam. He is eating snacks. No JVD. Mucosa is pink. Refuses complete physical exam. In limited exam: [place] is around 70s Reportedly the patient has history of substance abuse (alcohol/meth/marijuana/tobacco). He does have history of sinus bradycardia which was previously considered nonsignificant. Reportedly he has schizophrenia/bipolar? Does have history of noncompliance Echocardiogram of August 16, 2023 had reported ejection fraction of 73%, no wall motion abnormality, normal diastolic and no valvular disease TSH: 0.87 Urine toxicology was positive for amphetamine/alcohol Chest xry revealed: IMPRESSION: No acute cardiopulmonary process. CT of the head reported: IMPRESSION: No acute intracranial findings. MRI of the brain reported: IMPRESSION: 1. Unremarkable noncontrast MRI brain. Patient is a 28-year-old gentleman who presented with altered level of consciousness. Presentation was not considered cardiac on presentation. Presentation is in favor of encephalopathy/metabolic versus toxic. He is known to have minor sinus bradycardia from before. No recent thyroid function tests has been performed. Patient does have history of noncompliance/schizophrenia versus bipolar which limits he has evaluation. On examination, the patient is not in acute distress. Bradycardia, sinus Encephalopathy, toxic versus metabolic Polysubstance abuse Noncompliance to medication/evaluation/physical exam Cardiac suggestion for management: Manage on Tele Follow-up electrolytes and kidney function tests and correct abnormalities. Keep potassium above 4 and magnesium above 2 No indication for pacemaker at this point Hemodynamically stable Request for EKG Request for Echocardiogram (patient refusing) Avoid AV ryan blocking agents for now Lifestyle and risk factor modifications Consider psych evaluation Evaluation and management for substance abuse as per primary team Further evaluation and management depends on the above and clinical course A total of 55 minutes was spent reviewing the patient record, examining the patient, making a diagnostic and therapeutic plan, discussing this plan with medical personnel, following up on diagnostic studies and following the patient for clinical stability excluding any and all procedures. At least 50% of this time was spent in direct, [id number] contact. Thank you for allowing me to participate in this patient's care. Further recommendations will depend on patient's clinical course. Please do not hesitate to contact me if you have any questions or concerns. This medical document was created using electronic medical record system with [employer] computerized dictation system. Although this document has been carefully reviewed, there may still be some phonetic and typographical errors. These areas are purely typographical due to the imperfection of the software programs, and do not reflect any compromise in the patient's medical care. Dietary Evaluation Review Comments: 1. Continue current plan of care Expected Outcomes/Goals: Pt will meet >75% estimated needs Fu 3-5 days Plan discussed with: Patient SHARITA PRATER THERMITE WELDER Jun 10, 2024 14:51
[2024-06-10 20:00] VITALS: RESP 18
--- NOTE | 2024-06-11 13:10 | DVHPN2 ---
Progress Note - Dictate Date Seen: Jun 11, 2024 Medical Necessity Reason Pt with a Central, PICC or Fol: No vital signs Vital Sign Date Time Temp Pulse Resp B/P (MAP) Pulse Ox O2 Delivery O2 Flow Rate FiO2 06/11/24 08:05 Room Air* 0 21 06/10/24 20:00 18 Total Intake and Output 06/10/24 06/10/24 06/11/24 15:00 23:00 07:00 Intake Total 236 ml 236 ml Output Total 0 ml Balance 236 ml 236 ml medications Current Medications Medications Dose Ordered Sig/[place] Route Start Time Stop Time Status Last Admin Dose Admin Acetaminophen 650 mg Q6HP PRN PO 06/02/24 08:00 Nitroglycerin 0.4 mg Q5MINP PRN SL 06/02/24 08:00 Thiamine HCl 100 mg DAILY PO 06/05/24 10:00 Cancel Lorazepam 1 mg Q8HPRN PRN IV 06/05/24 12:45 Risperidone 2 mg BID PO 06/10/24 10:00 objective General Appearance: alert, no distress HEENT: EOMI, PERRLA, normal external inspect of ears, no icterus, no nasal drainage Neck: no carotid bruit, no jugular venous distention (JVD), no lymphadenopathy Chest: normal thorax Respiratory: clear to auscultation, normal air movement Cardiovascular: regular rate and rhythm, no diastolic murmur, no jugular venous distention (JVD), no rub, no systolic murmur Abdominal: soft, no hepatomegaly, no mass, no splenomegaly, no tenderness Genitourinary: grossly normal external Musculoskeletal: no joint tenderness, no swelling Extremities: normal pulses, no calf tenderness, no clubbing, no cyanosis, no edema Skin: no bruising, no jaundice, no rash Neurological: alert, No focal deficit laboratory and microbiology Laboratory Tests 06/07/24 16:03 06/03/24 08:28 Test 06/07/24 16:03 Range/Units Serum Glucose 112 H 74-106 mg/dL Problem List 1. acute toxic encephalopathy pending UDS, neurology consults, supportive care, IVF 2. Polysubstance abuse Monitor, PPI 3. Bradycardic Monitor, 4. EtOH abuse Educate Assessment/Plan Subjective Patient is awake and alert. Objective Patient is refusing to answer any questions. Patient is refusing to talk today. Sitter is at bedside. Patient is a 5150 hold to psychiatric facility for treatment. Refusing care at this time. Plan Continue current treatment. Plan to transfer to psychiatric facility once bed is available. Dietary Evaluation Review Comments: 1. Continue current plan of care Expected Outcomes/Goals: Pt will meet >75% estimated needs Fu 3-5 days Plan discussed with: Patient, Other DOMENIC VU [employer]PER[employer] AGENT Jun 11, 2024 13:10
--- NOTE | 2024-06-11 14:50 | DVHPN2 ---
Progress Note - Dictate Date Seen: Jun 11, 2024 Medical Necessity Reason Pt with a Central, PICC or Fol: No vital signs Vital Sign Date Time Temp Pulse Resp B/P (MAP) Pulse Ox O2 Delivery O2 Flow Rate FiO2 06/11/24 08:05 Room Air* 0 21 06/10/24 20:00 18 Total Intake and Output 06/10/24 06/10/24 06/11/24 15:00 23:00 07:00 Intake Total 236 ml 236 ml Output Total 0 ml Balance 236 ml 236 ml medications Current Medications Medications Dose Ordered Sig/[place] Route Start Time Stop Time Status Last Admin Dose Admin Acetaminophen 650 mg Q6HP PRN PO 06/02/24 08:00 Nitroglycerin 0.4 mg Q5MINP PRN SL 06/02/24 08:00 Thiamine HCl 100 mg DAILY PO 06/05/24 10:00 Cancel Lorazepam 1 mg Q8HPRN PRN IV 06/05/24 12:45 Risperidone 2 mg BID PO 06/10/24 10:00 laboratory and microbiology Laboratory Tests 06/07/24 16:03 06/03/24 08:28 Test 06/07/24 16:03 Range/Units Serum Glucose 112 H 74-106 mg/dL Assessment/Plan Patient is a 28-year-old male who originally presented to the hospital on June 01, 2024 for altered level of consciousness. Reportedly the patient was standing/staring in a gas station for around 1 hour. While being evaluated in the hospital/telemetry, the patient was being followed by Neurology and primary team. It seems that it has been determined that the patient does have history of schizophrenia/bipolar? Patient also has history of alcohol/methamphetamine/marijuana abuse. Since admission, the assessment has been toxic/metabolic encephalopathy. Reportedly the patient had remained catatonic on the floor for a while. While being managed on telemetry, the patient was found to have sinus bradycardia and Cardiology was called for its evaluation and management (on June 07, 2024). It is of note that the patient was seen by me in August 2023 when he was also evaluated for sinus bradycardia and was determined not to have significant arrhythmia. At that point suggestion was to observe and to have long-term monitor as outpatient. Patient never came for cardiology follow-up as outpatient. It is of note that when I came to see the patient, the patient is standing up and not talking. He refused to answer questions today. Sitter remains at bedside. He has been refusing tele monitoring. He refuses physical exam. He is eating snacks. No JVD. Mucosa is pink. Refuses complete physical exam. He remains fully clothed, not in a gown.In limited exam: [place] is around 70s Reportedly the patient has history of substance abuse (alcohol/meth/marijuana/tobacco). He does have history of sinus bradycardia which was previously considered nonsignificant. Reportedly he has schizophrenia/bipolar? Does have history of noncompliance Echocardiogram of August 16, 2023 had reported ejection fraction of 73%, no wall motion abnormality, normal diastolic and no valvular disease TSH: 0.87 Urine toxicology was positive for amphetamine/alcohol Chest xry revealed: IMPRESSION: No acute cardiopulmonary process. CT of the head reported: IMPRESSION: No acute intracranial findings. MRI of the brain reported: IMPRESSION: 1. Unremarkable noncontrast MRI brain. Patient is a 28-year-old gentleman who presented with altered level of consciousness. Presentation was not considered cardiac on presentation. Presentation is in favor of encephalopathy/metabolic versus toxic. He is known to have minor sinus bradycardia from before. No recent thyroid function tests has been performed. Patient does have history of noncompliance/schizophrenia versus bipolar which limits he has evaluation. On examination, the patient is not in acute distress. Bradycardia, sinus Encephalopathy, toxic versus metabolic Polysubstance abuse Noncompliance to medication/evaluation/physical exam Cardiac suggestion for management: Manage on Tele Follow-up electrolytes and kidney function tests and correct abnormalities. Keep potassium above 4 and magnesium above 2 No indication for pacemaker at this point Hemodynamically stable Request for EKG Request for Echocardiogram (patient refusing) Avoid AV ryan blocking agents for now Lifestyle and risk factor modifications Consider psych evaluation Evaluation and management for substance abuse as per primary team Further evaluation and management depends on the above and clinical course A total of 55 minutes was spent reviewing the patient record, examining the patient, making a diagnostic and therapeutic plan, discussing this plan with medical personnel, following up on diagnostic studies and following the patient for clinical stability excluding any and all procedures. At least 50% of this time was spent in direct, [id number] contact. Thank you for allowing me to participate in this patient's care. Further recommendations will depend on patient's clinical course. Please do not hesitate to contact me if you have any questions or concerns. This medical document was created using electronic medical record system with [employer] computerized dictation system. Although this document has been carefully reviewed, there may still be some phonetic and typographical errors. These areas are purely typographical due to the imperfection of the software programs, and do not reflect any compromise in the patient's medical care. Dietary Evaluation Review Comments: 1. Continue current plan of care Expected Outcomes/Goals: Pt will meet >75% estimated needs Fu 3-5 days Plan discussed with: Patient (No response ) SHARITA PRATER TANK HOOP BENDER Jun 11, 2024 14:50
--- NOTE | 2024-06-12 08:49 | DVHPN2 ---
Progress Note - Dictate Date Seen: Jun 12, 2024 Medical Necessity Reason Pt with a Central, PICC or Fol: No vital signs Vital Sign Date Time Temp Pulse Resp B/P (MAP) Pulse Ox O2 Delivery O2 Flow Rate FiO2 06/12/24 08:05 Room Air* 0 21 06/10/24 20:00 18 Total Intake and Output 06/11/24 06/11/24 06/12/24 15:00 23:00 07:00 Intake Total 300 ml 0 ml Output Total 0 ml Balance 300 ml 0 ml medications Current Medications Medications Dose Ordered Sig/[place] Route Start Time Stop Time Status Last Admin Dose Admin Acetaminophen 650 mg Q6HP PRN PO 06/02/24 08:00 Nitroglycerin 0.4 mg Q5MINP PRN SL 06/02/24 08:00 Thiamine HCl 100 mg DAILY PO 06/05/24 10:00 Cancel Lorazepam 1 mg Q8HPRN PRN IV 06/05/24 12:45 Risperidone 2 mg BID PO 06/10/24 10:00 laboratory and microbiology Laboratory Tests 06/07/24 16:03 06/03/24 08:28 Test 06/07/24 16:03 Range/Units Serum Glucose 112 H 74-106 mg/dL Assessment/Plan Patient is a 28-year-old gentleman who originally presented to the hospital on June 01, 2024 for altered level of consciousness. Reportedly the patient was standing/staring in a gas station for around 1 hour. While being evaluated in the hospital/telemetry, the patient was being followed by Neurology and primary team. It seems that it has been determined that the patient does have history of schizophrenia/bipolar? Patient also has history of alcohol/methamphetamine/marijuana abuse. Since admission, the assessment has been toxic/metabolic encephalopathy. Reportedly the patient had remained catatonic on the floor for a while. While being managed on telemetry, the patient was found to have sinus bradycardia and Cardiology was called for its evaluation and management (on June 07, 2024). It is of note that the patient was seen by me in August 2023 when he was also evaluated for sinus bradycardia and was determined not to have significant arrhythmia. At that point suggestion was to observe and to have long-term monitor as outpatient. Patient never came for cardiology follow-up as outpatient. It is of note that when I came to see the patient, the patient is standing up and not talking. He refuses to answer any question. Even when he was asked his name he only showed his name tag on the rest and refused to talk. He has been refusing tele monitoring for awhile. He refuses physical exam. He is eating snacks. No JVD. Mucosa is pink. Refuses complete physical exam. In limited exam: [place] is around 70s Reportedly the patient has history of substance abuse (alcohol/meth/marijuana/tobacco). He does have history of sinus bradycardia which was previously considered nonsignificant. Reportedly he has schizophrenia/bipolar? Does have history of noncompliance Echocardiogram of August 16, 2023 had reported ejection fraction of 73%, no wall motion abnormality, normal diastolic and no valvular disease TSH: 0.87 Urine toxicology was positive for amphetamine/alcohol Chest xry revealed: IMPRESSION: No acute cardiopulmonary process. CT of the head reported: IMPRESSION: No acute intracranial findings. MRI of the brain reported: IMPRESSION: 1. Unremarkable noncontrast MRI brain. Patient is a 28-year-old gentleman who presented with altered level of consciousness. Presentation was not considered cardiac on presentation. Presentation is in favor of encephalopathy/metabolic versus toxic. He is known to have minor sinus bradycardia from before. No recent thyroid function tests has been performed. Patient does have history of noncompliance/schizophrenia versus bipolar which limits he has evaluation. On examination, the patient is not in acute distress. Bradycardia, sinus Encephalopathy, toxic versus metabolic Polysubstance abuse Noncompliance to medication/evaluation/physical exam Cardiac suggestion for management: Manage on Tele Follow-up electrolytes and kidney function tests and correct abnormalities. Keep potassium above 4 and magnesium above 2 No indication for pacemaker at this point Hemodynamically stable Request for EKG Request for Echocardiogram (patient refusing) Avoid AV ryan blocking agents for now Lifestyle and risk factor modifications Consider psych evaluation Cardiac eddy, can be followed as outpatient Evaluation and management for substance abuse as per primary team Further evaluation and management depends on the above and clinical course A total of 55 minutes was spent reviewing the patient record, examining the patient, making a diagnostic and therapeutic plan, discussing this plan with medical personnel, following up on diagnostic studies and following the patient for clinical stability excluding any and all procedures. At least 50% of this time was spent in direct, [id number] contact. Thank you for allowing me to participate in this patient's care. Further recommendations will depend on patient's clinical course. Please do not hesitate to contact me if you have any questions or concerns. This medical document was created using electronic medical record system with [employer] computerized dictation system. Although this document has been carefully reviewed, there may still be some phonetic and typographical errors. These areas are purely typographical due to the imperfection of the software programs, and do not reflect any compromise in the patient's medical care. Dietary Evaluation Review Comments: 1. Continue current plan of care Expected Outcomes/Goals: Pt will meet >75% estimated needs Fu 3-5 days Plan discussed with: Other (nurse) JARRETT LOPEZ MD Jun 12, 2024 08:49
--- NOTE | 2024-06-12 11:48 | DVHPN2 ---
Progress Note - Dictate Date Seen: Jun 12, 2024 Medical Necessity Reason Pt with a Central, PICC or Fol: No vital signs Vital Sign Date Time Temp Pulse Resp B/P (MAP) Pulse Ox O2 Delivery O2 Flow Rate FiO2 06/12/24 08:05 Room Air* 0 21 06/10/24 20:00 18 Total Intake and Output 06/11/24 06/11/24 06/12/24 15:00 23:00 07:00 Intake Total 300 ml 0 ml Output Total 0 ml Balance 300 ml 0 ml medications Current Medications Medications Dose Ordered Sig/Monroe Route Start Time Stop Time Status Last Admin Dose Admin Acetaminophen 650 mg Q6HP PRN PO 06/02/24 08:00 Nitroglycerin 0.4 mg Q5MINP PRN SL 06/02/24 08:00 Thiamine HCl 100 mg DAILY PO 06/05/24 10:00 Cancel Lorazepam 1 mg Q8HPRN PRN IV 06/05/24 12:45 Risperidone 2 mg BID PO 06/10/24 10:00 objective General Appearance: alert, no distress HEENT: EOMI, PERRLA, normal external inspect of ears, no icterus, no nasal drainage Neck: no carotid bruit, no jugular venous distention (JVD), no lymphadenopathy Chest: normal thorax Respiratory: clear to auscultation, normal air movement Cardiovascular: regular rate and rhythm, no diastolic murmur, no jugular venous distention (JVD), no rub, no systolic murmur Abdominal: soft, no hepatomegaly, no mass, no splenomegaly, no tenderness Genitourinary: grossly normal external Musculoskeletal: no joint tenderness, no swelling Extremities: normal pulses, no calf tenderness, no clubbing, no cyanosis, no edema Skin: no bruising, no jaundice, no rash Neurological: alert, No focal deficit laboratory and microbiology Laboratory Tests 06/07/24 16:03 06/03/24 08:28 Test 06/07/24 16:03 Range/Units Serum Glucose 112 H 74-106 mg/dL Problem List 1. acute toxic encephalopathy pending UDS, neurology consults, supportive care, IVF 2. Polysubstance abuse Monitor, PPI 3. Bradycardic Monitor, 4. EtOH abuse Educate Assessment/Plan Subjective: Patient is awake and alert. Objective: Patient is unwilling to be interactive today and he is not really speaking. I discussed plan of care with RN at bedside. Patient has a sitter. He has a 5150 hold to a psychiatric facility. Patient is refusing labs and all care today. Plan: Continue current treatment. Patient is not taking any medications for schizophrenia. Plan for discharge to mental health facility once bed is available. Dietary Evaluation Review Comments: 1. Continue current plan of care Expected Outcomes/Goals: Pt will meet >75% estimated needs Fu 3-5 days Plan discussed with: Patient, Other DOMENIC VU CHIL[employer] DIRECTOR Jun 12, 2024 11:48
--- NOTE | 2024-06-12 13:35 | TELE.CONS ---
PSYCHIATRY REASSESSMENT Date: 06/12/24 1100 S: The patient was seen and evaluated at [facility] via telepsychiatry platform. 28 yr old male admitted for He was seen by SONALI Osborn on 06/07 and diagnosed with schizophrenia and recommended for psychiatric hospitalization and started on Risperdal 2mg which he has been declining and Ativan. Today, the patient reported he wasn't sure where he was. When asked how he gets food, he said, "I am not sure." When asked where he lives or how he finds lodging, he said "I am not sure." When asked if he would take his prescribed medications, he said "No." He has not taken the prescribed risperdal during this hospitalization. He stated he is willing to come into the psychiatric hospital on a voluntary basis. He denied having auditory or visual hallucinations. He denied having homicidal or suicidal ideation, plan or intent. MSE: alert and oriented to person and place speech-regular rate, rhythm and soft volume. Minimal speech with short answers Mood-"down" Affect-depressed,blunted, congruent. Tht process-disorganized Tht Content- Paucity of thought. Denied having suicidal and homicidal ideation. Denied auditory or visual hallucinations. No delusions or perseverations noted Insight-poor Judgment-poor Impulse control-fair. Diagnosis: UNSPECIFIED SCHIZOPHRENIA; METH USE DISORDER Assessment: This 28 yr old male appears to suffer from schizophrenia and meth use disorder. He remains very disorganized in thought and unable to express a plan to care for himself. He meets criteria for involuntary hospitalization on the basis of grave disability and given his refusal of medications, he likely will need compulsory medications which is best achieved at a behavioral health unit. He agrees to voluntary hospitalization at this time. He may benefit from switching his medication to Olanzapine, since he refused to take risperidone during his hospitalization. Continue to offer antipsychotic medication and document any refusals. Plan: 1. Transfer to behavioral health unit for further observation, evaluation and treatment. Given the patient's refusal of medications, he likely will need administration of compulsory medications and would benefit from transfer to a U. 2. Legal-Voluntary, but he meets criteria for involuntary 5150 hold on basis of grave disability. If 5150 hold is required for transfer to [facility], recommend initiating 5150 hold for grave disability. If patient is refusing voluntary hospitalization or no voluntary beds are available, please evaluated for 5150 hold. 3. Medications- Recommend starting Olanzapine 5mg PO or IM qhs. 4. Case discussed with team STEPH Woods. 5. Please contact psychiatry if further follow up or reevaluation is desired. Yes SHELBY NORRIS MD Jun 12, 2024 10:53
--- NOTE | 2024-06-12 23:59 | DVHPN2 ---
Progress Note - Dictate Date Seen: Jun 12, 2024 Medical Necessity Reason Pt with a Central, PICC or Fol: No Subjective Mr. Avalos he had 28 years old gentleman with a history of drug abuse, the patient was brought to the [facility] on 06/01/2024 with a chief complaint of altered mental status. I saw him on 08/15/2023 for toxic encephalopathy, 12/15/2023 for ALOC I have seen examined patient, he was awake, she was better today, alert oriented x 2-3, he talks, he answer questions, Tele psych consultation appreciated, the patient was recommended for 5150 hold, and psychiatrist Hospital admission Urinalysis, 06/03/24: WBC: 3, urine leukocyte esterase: Negative UDS, 08/15/23: Amphet. benzo, THC, 12/14/23: Amphetamine, cannabinoids, 06/03/24: Amphetamine Plasm alcohol, 12/14/2023: Normal, 06/01/2024: 4.7 CBC, 06/01/2024: Unremarkable BMP, 05/2724: Unremarkable Glucose, 06/01/2024: 69 TBI/AST/ALT/AP, 06/01/2024: 1.1/31/22/61 TG/HDL/LDL/HDL, 12/15/2023: 56/103/57/41 TSH, 03/16/2023: 1.83 EEG, 08/15/2023: Normal EEG, 12/14/2023: Normal CT head, 06/01/2024: No acute intracranial findings. MRI head, 08/16/2023: No acute infarct, intracranial hemorrhage, mass effect, or hydrocephalus MRI head, 12/16/2023: No evidence of acute infarction, intracranial hemorrhage, mass lesion or hydrocephalu MRI brain, 06/02/2024: Unremarkable noncontrast MRI brain. vital signs Vital Sign Date Time Temp Pulse Resp B/P (MAP) Pulse Ox O2 Delivery O2 Flow Rate FiO2 06/12/24 08:05 Room Air* 0 21 06/10/24 20:00 18 Total Intake and Output 06/11/24 06/11/24 06/12/24 15:00 23:00 07:00 Intake Total 300 ml 0 ml Output Total 0 ml Balance 300 ml 0 ml medications Current Medications Medications Dose Ordered Sig/Mon[place] Route Start Time Stop Time Status Last Admin Dose Admin Acetaminophen 650 mg Q6HP PRN PO 06/02/24 08:00 Nitroglycerin 0.4 mg Q5MINP PRN SL 06/02/24 08:00 Thiamine HCl 100 mg DAILY PO 06/05/24 10:00 Cancel Lorazepam 1 mg Q8HPRN PRN IV 06/05/24 12:45 Risperidone 2 mg BID PO 06/10/24 10:00 objective General: the patient is well developed and nourished. No acute distress. MENTAL STATUS: Subjective SPEECH, LANGUAGE, HIGHER CORTICAL FUNCTION: No aphasia or dysarthria CRANIAL NERVES: Pupils are equal, round and reactive. EOMs full and conjugate. Facial sensation intact in all three divisions bilaterally. Mandibular strength intact. Facial muscles symmetrical and strength intact. SENSATION: Sensation to touch and pinprick is ok. MOTOR: Normal tone in the upper and lower extremity. Normal muscle bulk. No fasciculations. No abnormal movements or posturing. He moves extremities, REFLEXES: Deep tendon reflexes are symmetrical. No pathological reflexes. CEREBELLAR/COORDINATION: Unremarkable finger-nose test bilaterally Gait: Unremarkable laboratory and microbiology Laboratory Tests 06/07/24 16:03 06/03/24 08:28 Test 06/07/24 16:03 Range/Units Serum Glucose 112 H 74-106 mg/dL Problem List Altered mental status, resolved Metabolic encephalopathy Toxic encephalopathy Substance abuse Schizophrenia Assessment/Plan Monitoring Supportive treatment Telemetry Risperdal 2 mg b.i.d. Thiamine DVT prophylaxis Social service on case 5150 hold Transferred to a psychiatry hospital More recommendation per clinical course This medical document was created using an electronic medical record system with [employer] dictation system. Although this document has been carefully reviewed, there may still be some phonetic and typographical errors. These areas are purely typographical due to imperfections of the software programs, and do not reflect any compromise in the patient's medical care Prognosis poor Dietary Evaluation Review Comments: 1. Continue current plan of care Expected Outcomes/Goals: Pt will meet >75% estimated needs Fu 3-5 days Plan discussed with: YARELIS Cisneros MD Jun 12, 2024 23:59
--- NOTE | 2024-06-13 06:59 | DVHPN2 ---
Progress Note - Dictate Date Seen: Jun 13, 2024 Medical Necessity Reason Pt with a Central, PICC or Fol: No vital signs Vital Sign Date Time Temp Pulse Resp B/P (MAP) Pulse Ox O2 Delivery O2 Flow Rate FiO2 06/12/24 20:00 Room Air* 0 21 Total Intake and Output 06/12/24 06/12/24 06/13/24 15:00 23:00 07:00 Intake Total 0 ml 1010 ml Output Total 100 ml Balance -100 ml 1010 ml medications Current Medications Medications Dose Ordered Sig/[place] Route Start Time Stop Time Status Last Admin Dose Admin Acetaminophen 650 mg Q6HP PRN PO 06/02/24 08:00 Nitroglycerin 0.4 mg Q5MINP PRN SL 06/02/24 08:00 Thiamine HCl 100 mg DAILY PO 06/05/24 10:00 Cancel Lorazepam 1 mg Q8HPRN PRN IV 06/05/24 12:45 Risperidone 2 mg BID PO 06/10/24 10:00 laboratory and microbiology Laboratory Tests 06/07/24 16:03 06/03/24 08:28 Test 06/07/24 16:03 Range/Units Serum Glucose 112 H 74-106 mg/dL Assessment/Plan Patient is a 28-year-old gentleman who originally presented to the hospital on June 01, 2024 for altered level of consciousness. Reportedly the patient was standing/staring in a gas station for around 1 hour. While being evaluated in the hospital/telemetry, the patient was being followed by Neurology and primary team. It seems that it has been determined that the patient does have history of schizophrenia/bipolar? Patient also has history of alcohol/methamphetamine/marijuana abuse. Since admission, the assessment has been toxic/metabolic encephalopathy. Reportedly the patient had remained catatonic on the floor for a while. While being managed on telemetry, the patient was found to have sinus bradycardia and Cardiology was called for its evaluation and management (on June 07, 2024). It is of note that the patient was seen by me in August 2023 when he was also evaluated for sinus bradycardia and was determined not to have significant arrhythmia. At that point suggestion was to observe and to have long-term monitor as outpatient. Patient never came for cardiology follow-up as outpatient. It is of note that when I came to see the patient, the patient is standing up and not talking. He refuses to answer any question. Even when he was asked his name he only showed his name tag on the rest and refused to talk. He has been refusing tele monitoring for awhile. He refuses physical exam. He is eating snacks. No JVD. Mucosa is pink. Refuses complete physical exam. In limited exam: [place] is around 70s Reportedly the patient has history of substance abuse (alcohol/meth/marijuana/tobacco). He does have history of sinus bradycardia which was previously considered nonsignificant. Reportedly he has schizophrenia/bipolar? Does have history of noncompliance Echocardiogram of August 16, 2023 had reported ejection fraction of 73%, no wall motion abnormality, normal diastolic and no valvular disease TSH: 0.87 Urine toxicology was positive for amphetamine/alcohol Chest xry revealed: IMPRESSION: No acute cardiopulmonary process. CT of the head reported: IMPRESSION: No acute intracranial findings. MRI of the brain reported: IMPRESSION: 1. Unremarkable noncontrast MRI brain. Patient is a 28-year-old gentleman who presented with altered level of consciousness. Presentation was not considered cardiac on presentation. Presentation is in favor of encephalopathy/metabolic versus toxic. He is known to have minor sinus bradycardia from before. No recent thyroid function tests has been performed. Patient does have history of noncompliance/schizophrenia versus bipolar which limits he has evaluation. On examination, the patient is not in acute distress. Is evaluated by Psych. Bradycardia, sinus Encephalopathy, toxic versus metabolic Polysubstance abuse Noncompliance to medication/evaluation/physical exam Cardiac suggestion for management: Manage on Tele Follow-up electrolytes and kidney function tests and correct abnormalities. Keep potassium above 4 and magnesium above 2 No indication for pacemaker at this point Hemodynamically stable Request for EKG Request for Echocardiogram (patient refusing) Avoid AV ryan blocking agents for now Lifestyle and risk factor modifications Cardiac eddy, can be followed as outpatient Evaluation and management for substance abuse as per primary team Further evaluation and management depends on the above and clinical course A total of 55 minutes was spent reviewing the patient record, examining the patient, making a diagnostic and therapeutic plan, discussing this plan with medical personnel, following up on diagnostic studies and following the patient for clinical stability excluding any and all procedures. At least 50% of this time was spent in direct, [id number] contact. Thank you for allowing me to participate in this patient's care. Further recommendations will depend on patient's clinical course. Please do not hesitate to contact me if you have any questions or concerns. This medical document was created using electronic medical record system with [employer] computerized dictation system. Although this document has been carefully reviewed, there may still be some phonetic and typographical errors. These areas are purely typographical due to the imperfection of the software programs, and do not reflect any compromise in the patient's medical care. Dietary Evaluation Review Comments: 1. Continue current plan of care Expected Outcomes/Goals: Pt will meet >75% estimated needs Fu 3-5 days Plan discussed with: Other (nurse) JARRETT LOPEZ MD Jun 13, 2024 06:59
--- NOTE | 2024-06-13 15:39 | DVHPN2 ---
Progress Note - Dictate Date Seen: Jun 13, 2024 Medical Necessity Reason Pt with a Central, PICC or Fol: No vital signs Vital Sign Date Time Temp Pulse Resp B/P (MAP) Pulse Ox O2 Delivery O2 Flow Rate FiO2 06/13/24 08:15 Room Air* 0 21 Total Intake and Output 06/12/24 06/12/24 06/13/24 15:00 23:00 07:00 Intake Total 0 ml 1010 ml Output Total 100 ml Balance -100 ml 1010 ml medications Current Medications Medications Dose Ordered Sig/[place] Route Start Time Stop Time Status Last Admin Dose Admin Acetaminophen 650 mg Q6HP PRN PO 06/02/24 08:00 Nitroglycerin 0.4 mg Q5MINP PRN SL 06/02/24 08:00 Thiamine HCl 100 mg DAILY PO 06/05/24 10:00 Cancel Lorazepam 1 mg Q8HPRN PRN IV 06/05/24 12:45 Risperidone 2 mg BID PO 06/10/24 10:00 objective General Appearance: alert, no distress HEENT: EOMI, PERRLA, normal external inspect of ears, no icterus, no nasal drainage Neck: no carotid bruit, no jugular venous distention (JVD), no lymphadenopathy Chest: normal thorax Respiratory: clear to auscultation, normal air movement Cardiovascular: regular rate and rhythm, no diastolic murmur, no jugular venous distention (JVD), no rub, no systolic murmur Abdominal: soft, no hepatomegaly, no mass, no splenomegaly, no tenderness Genitourinary: grossly normal external Musculoskeletal: no joint tenderness, no swelling Extremities: normal pulses, no calf tenderness, no clubbing, no cyanosis, no edema Skin: no bruising, no jaundice, no rash Neurological: alert, No focal deficit laboratory and microbiology Laboratory Tests 06/07/24 16:03 06/03/24 08:28 Test 06/07/24 16:03 Range/Units Serum Glucose 112 H 74-106 mg/dL Problem List 1. acute toxic encephalopathy pending UDS, neurology consults, supportive care, IVF 2. Polysubstance abuse Monitor, PPI 3. Bradycardic Monitor, 4. EtOH abuse Educate Assessment/Plan Subjective: Patient is awake and alert. Objective: Patient is verbal at times. He is again refusing treatment. I did discuss plan of care with social media coordinator. We are attempting to transfer patient as a 51-50 to a psychiatric facility due to patient's mother's recommendations and recommendation by tele-psych consultation. Plan: Continue current treatment. Will call patient's mother to encourage her to have son participate in care so patient can be transferred to a psychiatric facility. Patient will need to have labs done today in order for acceptance to psychiatric facility. Dietary Evaluation Review Comments: 1. Continue current plan of care Expected Outcomes/Goals: Pt will meet >75% estimated needs Fu 3-5 days Plan discussed with: Patient, Other DOMENIC VU [employer] CHIEF Jun 13, 2024 15:39
[2024-06-13 21:00] VITALS: BP 106/40; PULSE 61; RESP 18; TEMP 98; O2SAT 96
[2024-06-13 21:47] LABS: Basophils # (auto) 0.1 10 ^3/uL (0-0.2); Basophils % (auto) 1.3 % (0.0-2.0); Eosinophils # (auto) 0.2 10 ^3/uL (0-0.8); Eosinophils % (auto) 3.3 % (0.0-7.0); Hematocrit 44.6 % (41.0-53.0); Hemoglobin 15.4 g/dL (13.5-17.5); Lymphocytes # (auto) 2.7 10 ^3/uL (0.4-5.4); Mean Corpuscular Hgb Conc. 34.5 g/dL (32.0-36.0); Mean Corpuscular Volume 89.8 fL (80.0-100.0); Monocytes # (auto) 0.5 10 ^3/uL (0-1.3); Monocytes % (auto) 7.5 % (0.0-12.0); Neutrophils # (auto) 3.1 10 ^3/uL (1.6-8.6); Neutrophils % (auto) 46.9 % (37.0-80.0); Nucleated Red Blood Cells % 0.1 %; Platelet Count (auto) 244 10^3/uL (140-450); Red Blood Cells 4.96 10^6/uL (4.5-5.90); Red Cell Distribution Width 14.1 % (11.8-14.3); White Blood Cell 6.7 10^3/uL (4.4-10.8)
[2024-06-13 22:07] LABS: Anion Gap 7 (5-15); Carbon Dioxide 28 mmol/L (20-31); Chloride 106 mmol/L (98-107); Potassium 4.1 mmol/L (3.5-5.1); Sodium 141 mmol/L (136-145)
[2024-06-13 22:13] LABS: BUN/Creatinine Ratio 14.5 (10.0-20.0); Blood Urea Nitrogen 11 mg/dL (9-23); Glucose 94 mg/dL (74-106)
[2024-06-14 01:00] VITALS: BP 103/48; PULSE 57; RESP 18; TEMP 97.9; O2SAT 95
--- NOTE | 2024-06-14 06:36 | DVHPN2 ---
Progress Note - Dictate Date Seen: Jun 14, 2024 Medical Necessity Reason Pt with a Central, PICC or Fol: No vital signs Vital Sign Date Time Temp Pulse Resp B/P (MAP) Pulse Ox O2 Delivery O2 Flow Rate FiO2 06/14/24 01:00 97.9 57 18 103/48 (66) 95 97.9 06/13/24 20:00 Room Air* 0 21 Total Intake and Output 06/13/24 06/13/24 06/14/24 15:00 23:00 07:00 Intake Total 100 ml 200 ml Balance 100 ml 200 ml medications Current Medications Medications Dose Ordered Sig/[place] Route Start Time Stop Time Status Last Admin Dose Admin Acetaminophen 650 mg Q6HP PRN PO 06/02/24 08:00 Nitroglycerin 0.4 mg Q5MINP PRN SL 06/02/24 08:00 Thiamine HCl 100 mg DAILY PO 06/05/24 10:00 Cancel Lorazepam 1 mg Q8HPRN PRN IV 06/05/24 12:45 Risperidone 2 mg BID PO 06/10/24 10:00 06/13/24 22:00 2 MG laboratory and microbiology Laboratory Tests 06/13/24 21:32 Test 06/13/24 21:32 Range/Units Serum Glucose 94 74-106 mg/dL Assessment/Plan Patient is a 28-year-old gentleman who originally presented to the hospital on June 01, 2024 for altered level of consciousness. Reportedly the patient was standing/staring in a gas station for around 1 hour. While being evaluated in the hospital/telemetry, the patient was being followed by Neurology and primary team. It seems that it has been determined that the patient does have history of schizophrenia/bipolar? Patient also has history of alcohol/methamphetamine/marijuana abuse. Since admission, the assessment has been toxic/metabolic encephalopathy. Reportedly the patient had remained catatonic on the floor for a while. While being managed on telemetry, the patient was found to have sinus bradycardia and Cardiology was called for its evaluation and management (on June 07, 2024). It is of note that the patient was seen by me in August 2023 when he was also evaluated for sinus bradycardia and was determined not to have significant arrhythmia. At that point suggestion was to observe and to have long-term monitor as outpatient. Patient never came for cardiology follow-up as outpatient. It is of note that when I came to see the patient, the patient is standing up and not talking. He refuses to answer any question. Even when he was asked his name he only showed his name tag on the rest and refused to talk. He has been refusing tele monitoring for awhile. He refuses physical exam. He is eating snacks. No JVD. Mucosa is pink. Refuses complete physical exam. In limited exam: [place] is around 70s Reportedly the patient has history of substance abuse (alcohol/meth/marijuana/tobacco). He does have history of sinus bradycardia which was previously considered nonsignificant. Reportedly he has schizophrenia/bipolar? Does have history of noncompliance Echocardiogram of August 16, 2023 had reported ejection fraction of 73%, no wall motion abnormality, normal diastolic and no valvular disease TSH: 0.87 Urine toxicology was positive for amphetamine/alcohol Chest xry revealed: IMPRESSION: No acute cardiopulmonary process. CT of the head reported: IMPRESSION: No acute intracranial findings. MRI of the brain reported: IMPRESSION: 1. Unremarkable noncontrast MRI brain. Patient is a 28-year-old gentleman who presented with altered level of consciousness. Presentation was not considered cardiac on presentation. Presentation is in favor of encephalopathy/metabolic versus toxic. He is known to have minor sinus bradycardia from before. No recent thyroid function tests has been performed. Patient does have history of noncompliance/schizophrenia versus bipolar which limits he has evaluation. On examination, the patient is not in acute distress. Is evaluated by Psych. Bradycardia, sinus Encephalopathy, toxic versus metabolic Polysubstance abuse Noncompliance to medication/evaluation/physical exam Cardiac suggestion for management: Manage on Tele Follow-up electrolytes and kidney function tests and correct abnormalities. Keep potassium above 4 and magnesium above 2 No indication for pacemaker at this point Hemodynamically stable Request for EKG Request for Echocardiogram (patient refusing) Avoid AV ryan blocking agents for now Lifestyle and risk factor modifications Cardiac eddy, can be followed as outpatient Evaluation and management for substance abuse as per primary team Will sign off, call for follow up PRN Further evaluation and management depends on the above and clinical course A total of 55 minutes was spent reviewing the patient record, examining the patient, making a diagnostic and therapeutic plan, discussing this plan with medical personnel, following up on diagnostic studies and following the patient for clinical stability excluding any and all procedures. At least 50% of this time was spent in direct, [id number] contact. Thank you for allowing me to participate in this patient's care. Further recommendations will depend on patient's clinical course. Please do not hesitate to contact me if you have any questions or concerns. This medical document was created using electronic medical record system with [employer] computerized dictation system. Although this document has been carefully reviewed, there may still be some phonetic and typographical errors. These areas are purely typographical due to the imperfection of the software programs, and do not reflect any compromise in the patient's medical care. Dietary Evaluation Review Comments: 1. Continue current plan of care Expected Outcomes/Goals: Pt will meet >75% estimated needs Fu 3-5 days Plan discussed with: Other (nurse) JARRETT LOPEZ MD Jun 14, 2024 06:36
--- NOTE | 2024-06-14 14:16 | DVHPN2 ---
Progress Note - Dictate Medical Necessity Reason Pt with a Central, PICC or Fol: No vital signs Vital Sign Date Time Temp Pulse Resp B/P (MAP) Pulse Ox O2 Delivery O2 Flow Rate FiO2 06/14/24 01:00 97.9 57 18 103/48 (66) 95 97.9 06/13/24 20:00 Room Air* 0 21 Total Intake and Output 06/13/24 06/13/24 06/14/24 15:00 23:00 07:00 Intake Total 100 ml 200 ml Balance 100 ml 200 ml medications Current Medications Medications Dose Ordered Sig/[place] Route Start Time Stop Time Status Last Admin Dose Admin Acetaminophen 650 mg Q6HP PRN PO 06/02/24 08:00 Nitroglycerin 0.4 mg Q5MINP PRN SL 06/02/24 08:00 Thiamine HCl 100 mg DAILY PO 06/05/24 10:00 Cancel Lorazepam 1 mg Q8HPRN PRN IV 06/05/24 12:45 Risperidone 2 mg BID PO 06/10/24 10:00 06/13/24 22:00 2 MG objective General Appearance: alert, no distress HEENT: EOMI, PERRLA, normal external inspect of ears, no icterus, no nasal drainage Neck: no carotid bruit, no jugular venous distention (JVD), no lymphadenopathy Chest: normal thorax Respiratory: clear to auscultation, normal air movement Cardiovascular: regular rate and rhythm, no diastolic murmur, no jugular venous distention (JVD), no rub, no systolic murmur Abdominal: soft, no hepatomegaly, no mass, no splenomegaly, no tenderness Genitourinary: grossly normal external Musculoskeletal: no joint tenderness, no swelling Extremities: normal pulses, no calf tenderness, no clubbing, no cyanosis, no edema Skin: no bruising, no jaundice, no rash Neurological: alert, No focal deficit laboratory and microbiology Laboratory Tests 06/13/24 21:32 Test 06/13/24 21:32 Range/Units Serum Glucose 94 74-106 mg/dL Problem List 1. acute toxic encephalopathy pending UDS, neurology consults, supportive care, IVF 2. Polysubstance abuse Monitor, PPI 3. Bradycardic Monitor, 4. EtOH abuse Educate Assessment/Plan Subjective: Patient is awake and alert. Objective: Patient is verbal at times. He is again refusing treatment. I did discuss plan of care with social service technician. We are attempting to transfer patient as a 51-50 to a psychiatric facility due to patient's mother's recommendations and recommendation by tele-psych consultation. Plan: Continue current treatment. Will call patient's mother to encourage her to have son participate in care so patient can be transferred to a psychiatric facility. Patient will need to have labs done today in order for acceptance to psychiatric facility. Dietary Evaluation Review Comments: 1. Continue current plan of care Expected Outcomes/Goals: Pt will meet >75% estimated needs Fu 3-5 days DOMENIC VU NP Jun 14, 2024 14:16
--- NOTE | 2024-06-14 15:41 | DVHDS2 ---
Discharge Summary Date of Admission Jun 02, 2024 at 08:00 Date of Discharge: Jun 14, 2024 Labs/Diagnostic Data: Laboratory Results Test 06/13/24 21:32 06/07/24 16:03 06/03/24 00:48 06/01/24 17:02 White Blood Count 6.7 10^3/uL (4.4-10.8) Red Blood Count 4.96 10^6/uL (4.5-5.90) Hemoglobin 15.4 g/dL (13.5-17.5) Hematocrit 44.6 % (41.0-53.0) Mean Corpuscular Volume 89.8 fL (80.0-100.0) Mean Corpuscular Hemoglobin 31.0 pg (28.0-32.0) Mean Corpuscular Hemoglobin Concent 34.5 g/dL (32.0-36.0) Red Cell Distribution Width 14.1 % (11.8-14.3) Platelet Count 244 10^3/uL (140-450) Mean Platelet Volume 8.8 fL (6.9-10.8) Neutrophils (%) (Auto) 46.9 % (37.0-80.0) Lymphocytes (%) (Auto) 41.0 % (10.0-50.0) Monocytes (%) (Auto) 7.5 % (0.0-12.0) Eosinophils (%) (Auto) 3.3 % (0.0-7.0) Basophils (%) (Auto) 1.3 % (0.0-2.0) Neutrophils # (Auto) 3.1 10 ^3/uL (1.6-8.6) Lymphocytes # (Auto) 2.7 10 ^3/uL (0.4-5.4) Monocytes # (Auto) 0.5 10 ^3/uL (0-1.3) Eosinophils # (Auto) 0.2 10 ^3/uL (0-0.8) Basophils # (Auto) 0.1 10 ^3/uL (0-0.2) Nucleated Red Blood Cells 0.1 % Sodium Level 141 mmol/L (136-145) Potassium Level 4.1 mmol/L (3.5-5.1) Chloride Level 106 mmol/L (98-107) Carbon Dioxide Level 28 mmol/L (20-31) Anion Gap 7 (5-15) Blood Urea Nitrogen 11 mg/dL (9-23) Creatinine 0.76 mg/dL (0.700-1.30) Glomerular Filtration Rate Calc 126 mL/min (>90) BUN/Creatinine Ratio 14.5 (10.0-20.0) Serum Glucose 94 mg/dL (74-106) Calcium Level 10.0 mg/dL (8.7-10.4) Thyroid Stimulating Hormone (TSH) 0.87 uIU/mL (0.55-4.78) Urine Color Yellow (Yellow) Urine Clarity Clear (Clear) Urine pH 6.0 (5.0-9.0) Urine Specific [place] 1.035 (1.001-1.035) Urine Protein Trace (Negative) Urine Ketones 1+ (Negative) Urine Blood Negative /uL (Negative) Urine Nitrite Negative (Negative) Urine Bilirubin Negative (Negative) Urine Urobilinogen Normal mg/dL (Negative) Urine Leukocyte Esterase Negative /uL (Negative) Urine RBC 2 /hpf (0 - 3) Urine Microscopic WBC 3 /HPF (0-3) Urine Squamous Epithelial Cells Few /hpf (<5) Urine Bacteria None seen /hpf (None Seen) Urine Mucus Few (None Seen) Urine Glucose Normal mg/dL (Normal) Urine Opiates Screen Neg (NEGATIVE) Urine Fentanyl Screen Neg (NEGATIVE) Urine Barbiturates Screen Neg (NEGATIVE) Urine Phencyclidine Screen Neg (NEGATIVE) Urine Amphetamines Screen Pos (NEGATIVE) Urine Benzodiazepines Screen Neg (NEGATIVE) Urine Cocaine Screen Neg (NEGATIVE) Urine Cannabinoids Screen Neg (NEGATIVE) POC Glucose 70 mg/dl (70-106) Test 06/01/24 15:30 Total Bilirubin 1.1 mg/dL (0.2-1.0) Aspartate Amino Transferase (AST) 31 U/L (13-40) Alanine Aminotransferase (ALT) 22 U/L (7-40) Alkaline Phosphatase 61 U/L (46-116) Total Protein 7.1 g/dL (5.7-8.2) Albumin 4.7 g/dL (3.2-4.8) Plasma/Serum Blood Alcohol 4.7 mg/dL (<10) Other Laboratory Tests 06/13/24 21:32 Brief Hx & Hospital Course: 28 y/o MKELLIE presents to the ED for CC of ALOC. 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 EMS states, all VVS and BS read at 79 on glucometer in route to ED. No other symptoms or modifiers obtainable at this time due to patient being A&Ox0. While in the emergency department the patient was evaluated by the provider, As per provider: Labs, vital signs, and imagining monitored. Patient left against medical advice. Patient was admitted on June 02, 2024. Patient was positive for polysubstance abuse. Patient was aphasic. However a toxic encephalopathy was most likely contributing to the problem. Patient then became awake and alert. He did not remember the events that led him to the hospital. Patient refused medications recommended by tele psychiatry. Patient was placed on a 5150 hold, and he was accepted to a psychiatric facility. Patient's mother had been at bedside to visit. She did request a psychiatric facility for evaluation. Patient refused most lab draws and refused any medications and refused to wear a security monitor. Patient had been seen by cardiology for bradycardia, however, he refused an echocardiogram and further workup. Most likely, bradycardia was related to recent drug use. Patient was accepted to a facility, transport was on its way, and patient decided to leave against medical advice. Our end stated was called since patient was a 5150 hold. The patient decided they wanted to leave AMA. The patient was informed about the risk of leaving. And was informed about the risk that are involved if they left without any treatment which may include . The patient was okay with it and decided to leave without any intervention. The patient was told to return for any worsening symptoms. Condition at Discharge: Unstable Final Diagnosis/Problems List 5150 hold for acute mental helty disturbance schizophrenia polysub abuse Discharge Disposition: AMA Discharge Instruct/Medications Diet: Regular Activity: No Restrictions, As Tolerated Discharge Statement: "Patient was advised to return to the ER or call 911 if any headaches, dizziness, shortness of breath, chest pain, abdominal pain, bleeding, fevers, or worsening of medical condition. Patient was counseled about treatment plan, medications, possible side effects, patientverbalized understanding. All questions were answered to the best of my ability. This discharge took greater then 30 minutes in planning, reviewing documentation, counseling the patient, and discussing with other team members." ASSESSMENT ASSESSMENT Assessment 5150 hold for acute mental helty disturbance schizophrenia polysub abuse DOMENIC VU FIREBRICK LAYER Jun 14, 2024 15:41
[2024-06-14 16:17] VITALS: TEMP 36.6
== END 2024-06-14 17:20 | disposition left against medical advice (07) | DRG 52 ==
LOC: EDUNIT# 14:40 → EDBD 14:40 → ER 14:40 → OVERFLOW 06-02 08:00 → TELE-WESTW 06-02 10:41 → WEST WING 06-14 13:56
PROVIDERS: ADMIT Nurse Practitioner; ATTEND Nurse Practitioner
DX: G92.8 Other toxic encephalopathy (principal); F06.1 Catatonic disorder due to known physiological condition; E86.0 Dehydration; F10.10 Alcohol abuse, uncomplicated; F15.10 Other stimulant abuse, uncomplicated; T43.655A Adverse effect of methamphetamines, initial encounter; F94.0 Selective mutism; F12.10 Cannabis abuse, uncomplicated; R00.1 Bradycardia, unspecified; Z53.29 Procedure and treatment not carried out because of patient's decision for other reasons; F20.9 Schizophrenia, unspecified; F19.10 Other psychoactive substance abuse, uncomplicated; Z59.00 Homelessness unspecified; Z79.1 Long term (current) use of non-steroidal anti-inflammatories (NSAID); Z79.899 Other long term (current) drug therapy; Z83.3 Family history of diabetes mellitus; Z87.891 Personal history of nicotine dependence; Z91.148 Patient's other noncompliance with medication regimen for other reason; Z91.199 Patient's noncompliance with other medical treatment and regimen due to unspecified reason; Y92.89 Other specified places as the place of occurrence of the external cause
CPT/HCPCS: 36415; 70450; 70551; 71045; 80048; 80053; 80307; 80320; 81001; 82962; 84443; 85025; 93005; G0378; J7060